=== PATIENT | male | born 1935 | race Caucasian/White ===

== ENCOUNTER 2019-08-05 15:00 | Outpatient (CLI) | payer MEDICARE, SELFPAY ==
--- NOTE | ~2019-08-05 | XR_ITS ---
EXAMINATION: XR chest 2V DATE: 08/05/2019 15:24 INDICATION: Fever and cough. TECHNIQUE: Frontal and lateral views of the chest were obtained. COMPARISON: Chest 2 views 11/05/2018, CT abdomen and pelvis 08/08/2018 FINDINGS: There is mild atelectasis versus scarring in the lower lung zones. No pleural effusion or p neumothorax. The heart size is normal. IMPRESSION: 1. Mild atelectasis versus scarring in the lower lung zones. Reviewed, dictated and finalized at location A. F MEDICAL TECHNOLOGIST
[2019-08-05 15:14] LABS: Basophils Absolute Auto 0.02 K/mm3 (0.00-0.10); Basophils Percent Auto 0.3 % (0.0-1.0); Eosinophils Absolute Auto 0.11 K/mm3 (0.02-0.50); Eosinophils Percent Auto 1.5 % (1.0-6.0); Hematocrit 39.6 % (37.0-46.0); Hemoglobin 13.6 g/dL (12.4-15.3); Immature Granulocyte Absolute 0.03 K/mm3 (0.00-0.00); Immature Granulocyte Percent A 0.4 % (0.0-0.0); Immature Platelet Fraction Pct 0.8 % (1.0-7.0); Lymphocytes Absolute Auto 1.32 K/mm3 (1.10-4.50); Lymphocytes Percent Auto 18.3 % (18.0-42.0); Mean Corpuscular HGB Conc 34.3 g/dL (32.0-36.0); Mean Corpuscular Hemoglobin 32.6 pg (27.0-31.0); Mean Platelet Volume 9.2 fl (8.7-11.0); Monocytes Absolute Auto 0.74 K/mm3 (0.10-0.90); Monocytes Percent Auto 10.2 % (2.0-11.0); Neutrophils Percent Auto 69.3 % (50.0-70.0); Platelet Count Result 162 K/mm3 (150-420); Red Blood Count 4.17 M/mm3 (4.70-6.10); Red Cell Distribution Width 13.8 % (11.6-14.4); White Blood Count 7.2 K/mm3 (4.8-10.8)
[2019-08-05 15:27] LABS: Anion Gap 11.7 mmol/L (7-16); Blood Urea Nitrogen 27 mg/dL (7-18); Calcium 8.9 mg/dL (8.5-10.1); Carbon Dioxide 30 mmol/L (21-32); Chloride 106 mmol/L (98-108); Estimated Glomerular Filt Rate 27; Glucose 93 mg/dL (70-99); Osmolality Calculated 303 mOsm/kg (285-295); Potassium 3.7 mmol/L (3.5-5.1); Sodium 144 mmol/L (136-145)
[2019-08-05 15:31] LABS: Influenza Control Valid (Valid)
== END 2019-08-05 15:01 | disposition home or self-care (01) ==
LOC: CHSLAB 15:03
PROVIDERS: PCP Internal Medicine; Visit Provider Internal Medicine
DX: R50.9 Fever, unspecified (principal); R05 Cough
CPT/HCPCS: 71046; 80048; 85025; 85055; 87804

== ENCOUNTER 2019-08-06 13:10 | Outpatient (CLI) | payer MEDICARE, SELFPAY ==
--- NOTE | ~2019-08-06 | US_ITS ---
EXAMINATION: US soft tissue head and neck DATE: 08/06/2019 14:19 INDICATION: Chronic lump at the lateral left forehead TECHNIQUE: Multiple grayscale and Doppler ultrasound images of the region of concern at the lateral l eft forehead were obtained. COMPARISON: None FINDINGS: There is a heterogeneous lenticular mass in the scalp at the region of concern measuring 2.6 x 2.3 x 0.8 cm. The mass appears isoechoic and with similar echogenicity to the surrounding subcutaneous tiss ues with no internal vascular flow on color Doppler most suggestive of a lipoma. There is an underlyi ng 4.9 x 1.8 x 3.3 cm anechoic region and could not exclude a larger cystic lesion however the echoge nicity along the deep margin of the anechoic region demonstrates a contracted appearance which appear s to represent a reflection of the tissues of the scalp suggesting this represents artifact resulting from the skull. IMPRESSION: 1. Nonspecific 2.6 x 2.3 x 0.8 cm mass at the region of concern with appearance suggestive of a lipom a. 2. Likely acoustic reflection from the skull resulting in artifactual appearance of a large underlyin g cystic lesion. If clinically indicated CT could be obtained for confirmation both of the suspected artifact as well as of the suspected fatty composition of the scalp mass. Reviewed, dictated and finalized at location A. LER HAND IMPRESSION: 1. Nonspecific 2.6 x 2.3 x 0.8 cm mass at the region of concern with appearance suggestive of a lipoma. 2. Likely acoustic reflection from the skull resulting in artifactual appearanc e of a large underlying cystic lesion. If clinically indicated CT could be obta ined for confirmation both of the suspected artifact as well as of the suspecte d fatty composition of the scalp mass.
== END 2019-08-06 13:11 | disposition home or self-care (01) ==
LOC: CHSIMG 13:11
PROVIDERS: PCP Internal Medicine; Visit Provider Internal Medicine
DX: L72.9 Follicular cyst of the skin and subcutaneous tissue, unspecified (principal)
CPT/HCPCS: 76536

== ENCOUNTER 2019-08-19 08:08 | Outpatient (CLI) | payer MEDICARE, SELFPAY ==
[2019-08-19 08:22] LABS: Add Urine Microscopic? NO; Appearance Urine Clear (Clear); Bilirubin Urine Negative (Negative); Blood Urine Negative (Negative); Color Urine Yellow (Yellow); Glucose Urine UA Negative (Negative); Ketones Urine Negative (Negative); Leukocyte Esterase Ur Negative (Negative); Nitrate Urine Negative (Negative); Protein Urine Negative (Negative); Specific Grav Ur 1.015 (1.010-1.020); Urobilinogen Urine 0.2 mg/dL (0.2-1.0)
[2019-08-19 10:18] LABS: Blood Urea Nitrogen 26 mg/dL (7-18); Calcium 9.3 mg/dL (8.5-10.1); Carbon Dioxide 30 mmol/L (21-32); Chloride 106 mmol/L (98-108); Estimated Glomerular Filt Rate 27; Glucose 86 mg/dL (70-99); Osmolality Calculated 301 mOsm/kg (285-295); Sodium 144 mmol/L (136-145)
== END 2019-08-19 08:09 | disposition home or self-care (01) ==
LOC: CHSLAB 08:12
PROVIDERS: PCP Internal Medicine; Visit Provider Internal Medicine
DX: R79.89 Other specified abnormal findings of blood chemistry (principal)
CPT/HCPCS: 36415; 80048; 81003

== ENCOUNTER 2019-09-06 10:57 | Outpatient (CLI) | payer MEDICARE, SELFPAY ==
--- NOTE | ~2019-09-06 | CT_ITS ---
EXAMINATION: CT abdomen pelvis wo con DATE: 09/06/2019 12:26 INDICATION: Crohn's disease presenting with acute abdominal pain. Possible small bowel obstruction. TECHNIQUE: Computed tomography (CT) of the abdomen and pelvis was performed without intravenous contr ast. Automated exposure control and iterative reconstruction technique were employed. The dose-length product was 520.39 mGy-cm. COMPARISON: 08/08/2018 , 04/18/2016 and 03/30/2013 FINDINGS: Discoid atelectasis/scarring at the bilateral lower lung zones. Cardiomegaly. No pericardial or pleur al effusion. Very small sliding-type hiatal hernia. Liver, gallbladder, pancreas and bilateral adrena l glands are normal. Splenic calcification consistent with old granulomatous disease. 1 mm as well as 2-3 mm nonobstructing stones in the right kidney 2 mm nonobstructing stone at the lower pole of the left kidney. No significant change in bilateral renal cysts largest and more numerous on the left filemon suring up to 5.5 cm. There are a couple diverticula along the descending and sigmoid colon without ad jacent inflammatory change to suggest diverticulitis. Postoperative change of prior cecal and likely distal ileal resection with patent ileocolic anastomosis. No evident bowel wall thickening or obstruc tion. Small fat-containing right inguinal hernia. Bladder is normal. Prostatectomy with surgical clip s in the pelvis consistent with associated lymph node dissection. No free intraperitoneal gas or flui d. No pathologically enlarged abdominal or pelvic lymphadenopathy. Moderate lower lumbar spondylosis with mild spondylosis of the more cephalad lumbar and lower thoracic spine. No interval change since 2012 in multiple small sclerotic bone lesions in the pelvis, lower lumbar spine and proximal left fem ur most likely either bone islands or chronic stable/treated metastatic disease. IMPRESSION: 1. No bowel obstruction or acute intra-abdominal/pelvic process. 2. Very small sliding-type hiatal hernia. 3. Bilateral nonobstructing nephrolithiasis. 4. No interval change since 2012 in multiple small sclerotic bone lesions which could represent bone islands, stable treated metastatic prostate cancer or combination thereof. Reviewed, dictated and finalized at location A. DYER IMPRESSION: 1. No bowel obstruction or acute intra-abdominal/pelvic process. 2. Very small sliding-type hiatal hernia. 3. Bilateral nonobstructing nephrolithiasis. 4. No interval change since 2012 in multiple small sclerotic bone lesions which could represent bone islands, stable treated metastatic prostate cancer or com bination thereof.
[2019-09-06 11:11] LABS: Basophils Absolute Auto 0.03 K/mm3 (0.00-0.10); Basophils Percent Auto 0.5 % (0.0-1.0); Eosinophils Absolute Auto 0.13 K/mm3 (0.02-0.50); Eosinophils Percent Auto 2.2 % (1.0-6.0); Hematocrit 40.6 % (37.0-46.0); Immature Granulocyte Absolute 0.04 K/mm3 (0.00-0.00); Immature Granulocyte Percent A 0.7 % (0.0-0.0); Lymphocytes Absolute Auto 1.23 K/mm3 (1.10-4.50); Lymphocytes Percent Auto 20.7 % (18.0-42.0); Mean Corpuscular HGB Conc 34.5 g/dL (32.0-36.0); Mean Corpuscular Hemoglobin 32.5 pg (27.0-31.0); Mean Corpuscular Volume 94.2 fL (78.0-102.0); Mean Platelet Volume 8.6 fl (8.7-11.0); Monocytes Absolute Auto 0.61 K/mm3 (0.10-0.90); Monocytes Percent Auto 10.3 % (2.0-11.0); Neutrophils Absolute Auto 3.9 K/mm3 (1.7-7.2); Neutrophils Percent Auto 65.6 % (50.0-70.0); Platelet Count Result 152 K/mm3 (150-420); Red Blood Count 4.31 M/mm3 (4.70-6.10)
[2019-09-06 11:26] LABS: Alanine Aminotransferase 36 U/L (16-63); Albumin Level 3.6 g/dL (3.4-5.0); Alkaline Phosphatase 47 U/L (46-116); Anion Gap 6.8 mmol/L (7-16); Aspartate Amino Transferase 26 U/L (15-37); Bilirubin,Total 0.5 mg/dL (0.00-1.00); Blood Urea Nitrogen 34 mg/dL (7-18); Calcium 9.2 mg/dL (8.5-10.1); Carbon Dioxide 32 mmol/L (21-32); Chloride 105 mmol/L (98-108); Estimated Glomerular Filt Rate 27; Glucose 91 mg/dL (70-99); Osmolality Calculated 297 mOsm/kg (285-295); Potassium 3.8 mmol/L (3.5-5.1); Sodium 140 mmol/L (136-145); Total Protein 6.7 g/dL (6.4-8.2)
== END 2019-09-06 10:58 | disposition home or self-care (01) ==
LOC: CHSLAB 11:01
PROVIDERS: PCP Internal Medicine; Visit Provider Internal Medicine
DX: R10.0 Acute abdomen (principal)
CPT/HCPCS: 36415; 74176; 80053; 85025

== ENCOUNTER 2019-09-18 10:12 | Outpatient (CLI) | payer MEDICARE, SELFPAY ==
[2019-09-18 11:07] LABS: Anion Gap 14.8 mmol/L (7-16); Blood Urea Nitrogen 29 mg/dL (7-18); Calcium 9.4 mg/dL (8.5-10.1); Carbon Dioxide 29 mmol/L (21-32); Chloride 103 mmol/L (98-108); Estimated Glomerular Filt Rate 25; Glucose 135 mg/dL (70-99); Osmolality Calculated 303 mOsm/kg (285-295); Potassium 3.8 mmol/L (3.5-5.1); Sodium 143 mmol/L (136-145)
== END 2019-09-18 10:13 | disposition home or self-care (01) ==
LOC: CHSLAB 10:14
PROVIDERS: PCP Internal Medicine; Visit Provider Internal Medicine
DX: R79.89 Other specified abnormal findings of blood chemistry (principal)
CPT/HCPCS: 36415; 80048

== ENCOUNTER 2019-12-09 07:41 | Outpatient (CLI) | payer MEDICARE, SELFPAY ==
--- NOTE | ~2019-12-09 | US_ITS ---
EXAMINATION: US renal BI DATE: 12/09/2019 08:30 INDICATION: Abnormal renal function TECHNIQUE: Multiple ultrasound grayscale images of the kidneys were obtained. COMPARISON: CT dated 09/06/2019 FINDINGS: The right kidney measures 10.1 x 4.1 x 4.6 cm. The left kidney measures 11.9 x 5.8 x 5.6 cm. Bilatera l increased renal cortical echogenicity consistent with medical renal disease. 7 mm exophytic cyst at the right kidney and several larger cysts at the left kidney measuring up to 5.3 cm. 3 mm echogenic and shadowing stone at the lower pole of the right kidney. There is no hydronephrosis in either kidne y. Right side there is mild diffuse bladder wall thickening which is accentuated by incomplete diste ntion and which may be related to chronic outlet obstruction with postoperative change of prior prost atectomy evident on prior CT. IMPRESSION: 1. Bilateral diffuse increased renal cortical and chest CT consistent with medical renal disease. 2. Nonobstructing 3 mm right renal stone. No hydronephrosis. Reviewed, dictated and finalized at location A. IMPRESSION: 1. Bilateral diffuse increased renal cortical and chest CT consistent with med ical renal disease. 2. Nonobstructing 3 mm right renal stone. No hydronephrosis.
== END 2019-12-09 07:42 | disposition home or self-care (01) ==
PROVIDERS: PCP Internal Medicine; Visit Provider Internal Medicine Nephrology
DX: R94.4 Abnormal results of kidney function studies (principal)
CPT/HCPCS: 76775

== ENCOUNTER 2019-12-17 08:49 | Outpatient (CLI) | payer MEDICARE, SELFPAY ==
[2019-12-17 09:03] VITALS: BP 136/70; PULSE 72; RESP 14; TEMP 36.6; O2SAT 98
[2019-12-17] MEDS: DENOSUMAB 60 MG/ML SYRINGE SUB-Q (09:03)
--- NOTE | 2019-12-17 09:05 | PC.NURSE ---
Patient here for Prolia injection. Patient states, This is my third one of these. Be getting it twice a year. Reviewed with patient about medication side effects etc with verbal understanding. Tolerated injection well. Safe exit of hospital.
== END 2019-12-17 08:50 | disposition home or self-care (01) ==
LOC: CHSTREATRM 08:50
PROVIDERS: PCP Internal Medicine; Visit Provider Internal Medicine
DX: M81.8 Other osteoporosis without current pathological fracture (principal)
CPT/HCPCS: 96372; J0897

== ENCOUNTER 2019-12-23 07:14 | Outpatient (CLI) | payer MEDICARE, SELFPAY ==
[2019-12-23 07:28] LABS: Basophils Absolute Auto 0.02 K/mm3 (0.00-0.10); Basophils Percent Auto 0.4 % (0.0-1.0); Eosinophils Absolute Auto 0.15 K/mm3 (0.02-0.50); Eosinophils Percent Auto 2.8 % (1.0-6.0); Hematocrit 40.1 % (37.0-46.0); Hemoglobin 13.8 g/dL (12.4-15.3); Immature Granulocyte Absolute 0.03 K/mm3 (0.00-0.00); Immature Granulocyte Percent A 0.6 % (0.0-0.0); Lymphocytes Absolute Auto 1.58 K/mm3 (1.10-4.50); Mean Corpuscular HGB Conc 34.4 g/dL (32.0-36.0); Mean Corpuscular Volume 95.9 fL (78.0-102.0); Mean Platelet Volume 8.4 fl (8.7-11.0); Monocytes Absolute Auto 0.57 K/mm3 (0.10-0.90); Monocytes Percent Auto 10.8 % (2.0-11.0); Neutrophils Absolute Auto 2.9 K/mm3 (1.7-7.2); Neutrophils Percent Auto 55.4 % (50.0-70.0); Platelet Count Result 147 K/mm3 (150-420); Red Blood Count 4.18 M/mm3 (4.70-6.10); Red Cell Distribution Width 13.6 % (11.6-14.4); White Blood Count 5.3 K/mm3 (4.8-10.8)
[2019-12-23 07:33] LABS: Add Urine Microscopic? NO; Appearance Urine Clear (Clear); Bilirubin Urine Negative (Negative); Blood Urine Negative (Negative); Color Urine Yellow (Yellow); Glucose Urine UA Negative (Negative); Ketones Urine Negative (Negative); Leukocyte Esterase Ur Negative (Negative); Nitrate Urine Negative (Negative); Protein Urine Negative (Negative); Urobilinogen Urine 0.2 mg/dL (0.2-1.0)
[2019-12-23 08:55] LABS: Alanine Aminotransferase 33 U/L (16-63); Albumin Level 3.6 g/dL (3.4-5.0); Alkaline Phosphatase 42 U/L (46-116); Aspartate Amino Transferase 22 U/L (15-37); Bilirubin,Total 0.5 mg/dL (0.00-1.00); Blood Urea Nitrogen 29 mg/dL (7-18); Calcium 8.8 mg/dL (8.5-10.1); Carbon Dioxide 34 mmol/L (21-32); Chloride 104 mmol/L (98-108); Cholesterol 175 mg/dL (0-200); Creatine Kinase 106 U/L (39-308); Estimated Glomerular Filt Rate 25; Ferritin 82 ng/mL (26-388); Glucose 87 mg/dL (70-99); HDL Direct 62 mg/dL (40-60); Iron 114 ug/dL (65-175); LDL Cholesterol Calculated 96 mg/dL (<130); Osmolality Calculated 298 mOsm/kg (285-295); Percent Iron Saturation 37 % (12-57); Sodium 142 mmol/L (136-145); Total Protein 6.1 g/dL (6.4-8.2); Triglycerides 87 mg/dL (0-150); Uric Acid 6.5 mg/dL (3.5-7.2)
[2019-12-25 12:16] LABS: Parathyroid Intact 42 pg/mL (14-64)
[2019-12-28 11:49] LABS: Vitamin D 25 Hydroxy 35 ng/mL (30-100)
== END 2019-12-23 07:15 | disposition home or self-care (01) ==
PROVIDERS: PCP Internal Medicine; Visit Provider Internal Medicine
DX: D50.0 Iron deficiency anemia secondary to blood loss (chronic) (principal); I12.9 Hypertensive chronic kidney disease with stage 1 through stage 4 chronic kidney disease, or unspecified chronic kidney disease; E78.2 Mixed hyperlipidemia; E79.0 Hyperuricemia without signs of inflammatory arthritis and tophaceous disease; M81.8 Other osteoporosis without current pathological fracture; N18.3 Chronic kidney disease, stage 3 (moderate)
CPT/HCPCS: 36415; 80053; 80061; 81003; 82306; 82550; 82728; 83540; 83550; 83970; 84550; 85025

== ENCOUNTER 2020-01-27 11:43 | Outpatient (CLI) | payer MEDICARE, SELFPAY ==
[2020-01-27 12:00] LABS: Basophils Absolute Auto 0.01 K/mm3 (0.00-0.10); Basophils Percent Auto 0.2 % (0.0-1.0); Eosinophils Absolute Auto 0.18 K/mm3 (0.02-0.50); Eosinophils Percent Auto 3.3 % (1.0-6.0); Hematocrit 37.3 % (37.0-46.0); Hemoglobin 13.1 g/dL (12.4-15.3); Immature Granulocyte Absolute 0.03 K/mm3 (0.00-0.00); Immature Granulocyte Percent A 0.5 % (0.0-0.0); Lymphocytes Absolute Auto 1.24 K/mm3 (1.10-4.50); Lymphocytes Percent Auto 22.5 % (18.0-42.0); Mean Corpuscular HGB Conc 35.1 g/dL (32.0-36.0); Mean Corpuscular Hemoglobin 33.9 pg (27.0-31.0); Mean Corpuscular Volume 96.6 fL (78.0-102.0); Mean Platelet Volume 8.8 fl (8.7-11.0); Monocytes Absolute Auto 0.58 K/mm3 (0.10-0.90); Monocytes Percent Auto 10.5 % (2.0-11.0); Neutrophils Absolute Auto 3.5 K/mm3 (1.7-7.2); Platelet Count Result 141 K/mm3 (150-420); Red Blood Count 3.86 M/mm3 (4.70-6.10); Red Cell Distribution Width 14.4 % (11.6-14.4); White Blood Count 5.5 K/mm3 (4.8-10.8)
[2020-01-27 12:03] LABS: Add Urine Microscopic? NO; Appearance Urine Clear (Clear); Bilirubin Urine Negative (Negative); Blood Urine Negative (Negative); Color Urine Yellow (Yellow); Glucose Urine UA Negative (Negative); Ketones Urine Negative (Negative); Leukocyte Esterase Ur Negative (Negative); Nitrate Urine Negative (Negative); Protein Urine Negative (Negative); Specific Grav Ur <= 1.005 (1.010-1.020); Urobilinogen Urine 0.2 mg/dL (0.2-1.0); pH Urine 6.5 (5.0-8.0)
[2020-01-27 12:30] LABS: Alanine Aminotransferase 33 U/L (16-63); Albumin Level 3.5 g/dL (3.4-5.0); Alkaline Phosphatase 50 U/L (46-116); Anion Gap 8.1 mmol/L (7-16); Aspartate Amino Transferase 25 U/L (15-37); Bilirubin,Total 0.6 mg/dL (0.00-1.00); Blood Urea Nitrogen 28 mg/dL (7-18); Calcium 8.6 mg/dL (8.5-10.1); Carbon Dioxide 31 mmol/L (21-32); Chloride 103 mmol/L (98-108); Estimated Glomerular Filt Rate 20; Glucose 99 mg/dL (70-99); Osmolality Calculated 291 mOsm/kg (285-295); Potassium 4.1 mmol/L (3.5-5.1); Sodium 138 mmol/L (136-145); Total Protein 6.1 g/dL (6.4-8.2)
== END 2020-01-27 11:44 | disposition home or self-care (01) ==
LOC: CHSLAB 11:45
PROVIDERS: PCP Internal Medicine; Visit Provider Internal Medicine
DX: I10 Essential (primary) hypertension (principal); I63.9 Cerebral infarction, unspecified
CPT/HCPCS: 36415; 80053; 81003; 85025

== ENCOUNTER 2020-01-28 06:58 | Outpatient (CLI) | payer MEDICARE, SELFPAY ==
--- NOTE | ~2020-01-28 | US_ITS ---
EXAMINATION: US carotid duplex BI DATE: 01/28/2020 07:59 INDICATION: Speech deficit. Stroke. TECHNIQUE: Grayscale, color Doppler, and pulsed Doppler images of the cervical carotid arteries were obtained. The degree of vessel stenosis is placed in one of the following categories: normal, <50%, 5 0-69%, >=70% but less than near-occlusion, near-occlusion, or total occlusion. Note that percent sten osis relative to normal distal artery lumen diameter is indirectly measured from velocity measurement s as described by Mikel, et al. Radiology 2003; 229:340-346. COMPARISON: None. FINDINGS: RIGHT: The right common carotid artery (CCA) peak systolic velocity (PSV) is 61 cm/s. The right internal car otid artery (ICA) PSV is 65 cm/s. The right ICA end-diastolic velocity (EDV) is 23 cm/s. The right IC A/CCA PSV ratio is 1.1. Grayscale and color Doppler images yield an estimate of <50% diameter reducti on from plaque in the ICA. There is antegrade flow in the right vertebral artery. LEFT: The left CCA PSV is 58 cm/s. The left ICA PSV is 57 cm/s. The left ICA EDV is 20 cm/s. The left ICA/C CA PSV ratio is 1.0. Grayscale and color Doppler images yield an estimate of <50% diameter reduction from plaque in the ICA. There is antegrade flow in the left vertebral artery. IMPRESSION: 1. <50% stenosis in the right internal carotid artery. 2. <50% stenosis in the left internal carotid artery. Reviewed, dictated and finalized at location A.
--- NOTE | ~2020-01-28 | MR_ITS ---
EXAMINATION: MR brain IAC wo con EXAM DATE: 01/28/2020 08:17 INDICATION: Stroke. Episode of speech impairment last night. TECHNIQUE: Magnetic resonance imaging (MRI) of the brain/brain stem obtained without contrast. Sagitt al T1, axial diffusion, gradient echo (T2*), T1, T2, FLAIR sequences obtained. FINDINGS: There are no areas of restricted diffusion to suggest acute infarction. There is no acute hemorrhage seen on the T2*, a hemosiderin sensitive sequence. No intraparenchymal brain mass lesion. There is moderate periventricular and subcortical T2/FLAIR signal hyperintensity, nonspecific but pr obably related to small vessel ischemic disease (microangiopathy). There is mild prominence of the sulci and ventricles related to cerebral atrophy. Dilated perivascular spaces. There are no extra-ax ial collections. Flow voids are seen in the cerebral arteries on the T2-weighted sequences consisten t with their expected patency. Patient has had bilateral ocular lens surgery. Soft tissue is unrema rkable. There is left mastoid effusion. IMPRESSION: 1. No acute intracranial findings. 2. Chronic age related findings. 3. Left mastoid effusion. Reviewed, dictated and finalized at location A.
== END 2020-01-28 06:59 | disposition home or self-care (01) ==
PROVIDERS: PCP Internal Medicine; Visit Provider Internal Medicine
DX: I10 Essential (primary) hypertension (principal); I63.9 Cerebral infarction, unspecified
CPT/HCPCS: 70551; 93880

== ENCOUNTER 2020-02-08 00:57 | Outpatient (CLI) | payer MEDICARE, BC, SELFPAY ==
[2020-02-08 18:11] LABS: SARS-CoV-2 RNA PCR Negative
== END 2020-02-08 00:58 | disposition home or self-care (01) ==
LOC: ANHCOVIDDT 00:58
PROVIDERS: PCP Internal Medicine; Visit Provider Surgery
DX: Z01.812 Encounter for preprocedural laboratory examination (principal); Z11.59 Encounter for screening for other viral diseases
CPT/HCPCS: 87635; C9803; U0003

== ENCOUNTER 2020-02-11 01:36 | Day surgery (SDC) | payer MEDICARE, SELFPAY ==
[2020-02-04 10:40] VITALS: BMI 22.6
[2020-02-11 07:42] VITALS: BP 184/88; PULSE 63; RESP 18; TEMP 36.8; O2SAT 98
[2020-02-11] MEDS: LACTATED RINGERS 1,000 ML 150 ML IV CONT (07:54)
--- NOTE | 2020-02-11 08:08 | P.PNAN_ITS ---
Anes - Initial Pre Proc Eval Procedure: Operation Date: 02/11/20 09:00 Proposed Procedures p Screening Colonoscopy - Hawk Dunn DO Date/Time: 02/11/20 08:08 Surgeon: Hawk Dunn DO Pre Op Diagnosis: hx of polyps Patient Data Age: 84 Gender: M Height: 6 ft 1 in Weight: 76.6 kg Last Vital Signs Temp 98.2 F 02/11/20 07:42 Pulse 63 02/11/20 07:42 Resp 18 02/11/20 07:42 BP 184/88 H 02/11/20 07:42 Pulse Ox 98 02/11/20 07:42 Allergies Allergy/AdvReac Type Severity Reaction Status Date / Time No Known Allergies Allergy Verified 02/04/20 10:46 Home Medications Medication Instructions Recorded Confirmed Type albuterol sulfate 1 inh INHALATION QID 02/04/20 02/04/20 History budesonide 3 mg PO BID 02/04/20 02/04/20 History budesonide-formoterol [Symbicort] 2 puff INHALATION Q12H 02/04/20 02/04/20 History calcitriol 0.5 mcg PO DAILY 02/04/20 02/04/20 History carvedilol 12.5 mg PO BID 02/04/20 02/11/20 History fluticasone propionate [Flonase 1 spray INTRANASAL BID 02/04/20 02/04/20 History Allergy Relief] montelukast 10 mg PO DAILY 02/04/20 02/04/20 History nortriptyline 10 mg PO DAILY PRN 02/04/20 02/04/20 History omeprazole 20 mg PO BID 02/04/20 02/04/20 History Patient hx anesthesia problems: none Family hx anesthesia problems: none [facility] Past Medical History Medical History (Updated 02/11/20 @ 08:06 by Warner Medina MD) Asthma GERD (gastroesophageal reflux disease) Hyperlipidemia Hypertension Social History Social History Smoking status: Never smoker Gender identity (if verbalized by the patient): Male Anes - Eval Final PreProcedure Day of Procedure 02/11/20 08:08 Patient weight: normal Heart: regular rate and rhythm Lungs: clear to auscultation Airway: Mallampati scale class III Neurological: alert and oriented Last oral intake: >/= 8 hours ASA classification: III Emergent: no Anesthetic plan: proceed Anesthesia type and monitoring: general GIVS and standard monitoring Informed Consent: The patient's anesthetic plan and its attendant risks and benefits were discussed with the patient/family/POA. Questions were solicited and answers provided to the satisfaction of the patient/family/POA.
--- NOTE | 2020-02-11 08:21 | PM.IMHP ---
H&P: HPI History of Present Illness Date/Time: 02/11/20 08:21 Chief complaint: hx of polyps Narrative: Miguel A Richter is a 84 year old male who presents for colonoscopy. Last 5 years ago. No hematochezia or melena. No fam hx colon cancer. Review of Systems Review of Systems: All systems reviewed & are unremarkable except as noted in HPI and below Constitutional: Constitutional: Denies chills, Denies fever(s), Denies headache(s) and Denies weight loss Eyes: Eyes: Denies change in vision ENT: Denies dizziness, Denies headache(s), Denies neck mass and Denies throat swelling Cardiovascular: Cardiovascular: Denies chest pain, Denies lightheadedness and Denies dyspnea Respiratory: Respiratory: Denies cough, Denies dyspnea and Denies wheezing Gastrointestinal: Gastrointestinal: Denies abdominal pain, Denies change in bowel habits, Denies nausea and Denies vomiting Genitourinary: Genitourinary: Denies hematuria and Denies dysuria Musculoskeletal: Musculoskeletal: Reports as per HPI Integumentary/Breasts: Skin/Breast: Reports as per HPI Neurologic: Denies dizziness and Denies headache(s) Allergic/Immunologic: Allergic/Immunologic: Denies throat swelling and Denies wheezing PMF Past Medical History Medical History Asthma GERD (gastroesophageal reflux disease) Hyperlipidemia Hypertension Social History Social History Smoking status: Never smoker Gender identity (if verbalized by the patient): Male Meds Home Medications and Allergies Home Medications Medication Instructions Recorded Confirmed Type albuterol sulfate 1 inh INHALATION QID 02/04/20 02/04/20 History budesonide 3 mg PO BID 02/04/20 02/04/20 History budesonide-formoterol [Symbicort] 2 puff INHALATION Q12H 02/04/20 02/04/20 History calcitriol 0.5 mcg PO DAILY 02/04/20 02/04/20 History carvedilol 12.5 mg PO BID 02/04/20 02/11/20 History fluticasone propionate [Flonase 1 spray INTRANASAL BID 02/04/20 02/04/20 History Allergy Relief] montelukast 10 mg PO DAILY 02/04/20 02/04/20 History nortriptyline 10 mg PO DAILY PRN 02/04/20 02/04/20 History omeprazole 20 mg PO BID 02/04/20 02/04/20 History Allergies Allergy/AdvReac Type Severity Reaction Status Date / Time No Known Allergies Allergy Verified 02/04/20 10:46 Vital Signs Vital Signs - 24 hr 02/11/20 07:42 Temperature 36.8 C Pulse Rate 63 Respiratory Rate 18 Blood Pressure 184/88 H Pulse Oximetry 98 Exam Const: General: no acute distress and alert Orientation/consciousness: patient oriented x3 HENMT: Head: normocephalic and atraumatic Ears: hearing grossly normal bilaterally General nose exam: Normal nares present Mouth: Yes Normal oral and palatal mucosa present Eyes: Periorbital: periorbital findings normal Sclera: sclerae normal EOM: EOMs intact bilaterally Neck: Neck: normal visual inspection, no lymphadenopathy and trachea midline Chest: Chest palpation & inspection: normal inspection of the chest Resp: Effort & Inspection: normal respiratory effort Auscultation: clear to auscultation bilaterally Cardio: Jugular venous distension: no JVD Rate: regular rate Rhythm: regular rhythm Heart sounds: S1 normal heart sound present and S2 normal heart sound present Peripheral pulses: Peripheral pulses 2+ throughout GI: Inspection: normal to inspection GI Palp: Yes Soft to palpation, No Tenderness to palpation present (GI), No Guarding due to palpation present (GI) and No Rebound tenderness present Percussion: Yes normal to percussion Auscultation: normal bowel sounds : General: Yes no CVA tenderness Back/Spine/Pelvis: Back: no CVA tenderness Neuro: General: patient oriented x3, no focal motor deficits and CN's II-XI intact bilaterally Cognition (Neuro): normal cognition Speech: normal speech Motor exam (neuro): 5/5 motor strength present th
[2020-02-11 08:38] VITALS: BP 113/79; PULSE 60; RESP 18; O2SAT 95
[2020-02-11 08:48] VITALS: BP 124/82; PULSE 62; RESP 20; O2SAT 96
[2020-02-11 08:58] VITALS: BP 146/72; PULSE 56; RESP 20; O2SAT 98
== END 2020-02-11 09:19 | disposition home or self-care (01) ==
PROVIDERS: PCP Internal Medicine; Visit Provider Surgery
PROC: 0DJD8ZZ Inspection of Lower Intestinal Tract, Via Natural or Artificial Opening Endoscopic (ICD-10-PCS; CPT 45378; principal; 2020-02-11 09:00)
DX: Z12.11 Encounter for screening for malignant neoplasm of colon (principal); K50.90 Crohn's disease, unspecified, without complications; Z86.010 Personal history of colon polyps; I10 Essential (primary) hypertension; E78.5 Hyperlipidemia, unspecified; J45.909 Unspecified asthma, uncomplicated; K21.9 Gastro-esophageal reflux disease without esophagitis
CPT/HCPCS: G0105; J2704; J7120

== ENCOUNTER 2020-03-07 10:36 | Outpatient (CLI) | payer MEDICARE, SELFPAY ==
--- NOTE | ~2020-03-07 | MR_ITS ---
EXAMINATION: MR lumbar spine wo con EXAM DATE: 03/07/2020 11:20 INDICATION: Chronic low back pain down into right hip and leg, with 2 weeks of numbness and tingling in the right leg. TECHNIQUE: Multi-sequential, multiplanar MR images of the lumbar spine were obtained without contrast . Sagittal T1, T2, T2 fat saturation images. Axial T2 weighted images. There is no prior study for comparison. Correlation was made with CT abdomen pelvis 09/06/2019. FINDINGS: Mild compression fracture at the superior endplate of T11, chronic. The vertebral body heig hts are otherwise well-maintained. There is moderate disc disease at L5-S1, mild at the other lumbar levels. There is 3-4 mm anterolisthesis L4 on L5. The vertebral bodies are otherwise aligned. The con us medullaris terminates at the L1/2 level and has normal signal intensity and morphology. Multiple l eft renal lesions, imaged portions consistent with cysts. Heterogeneous bone marrow with scattered small regions consistent with hemangiomata, and others which are not. Correlating with prior CT scan, patient does have known scattered sclerotic foci, with diff erential diagnosis port as bone islands or treated metastatic prostate cancer. Level by level evaluation: T12-L1: Disc does not extend beyond the endplate margin. Facet arthropathy: None. Neural foraminal stenosis: No stenosis. Central canal stenosis: No stenosis. L1-L2: Disc does not extend beyond the endplate margin. Facet arthropathy: None. Neural foraminal stenosis: No stenosis. Central canal stenosis: No stenosis. L2-L3: There is a mild diffuse disc bulge. Facet arthropathy: Mild. Neural foraminal stenosis: Minimal bilateral. Central canal stenosis: No stenosis. L3-L4: There is a mild diffuse disc bulge. Facet arthropathy: Mild. Neural foraminal stenosis: Mild bilateral. Central canal stenosis: No stenosis. L4-L5: There is a mild to moderate diffuse disc bulge. Facet arthropathy: Moderate to severe . Ligamentum flavum enlargement. Neural foraminal stenosis: Mild to moderate right, mild left. Central canal stenosis: Mild to moderate. L5-S1: There is a mild to moderate diffuse disc bulge. Facet arthropathy: Mild. Neural foraminal stenosis: Moderate left, mild right. Central canal stenosis: No stenosis. IMPRESSION: 1. L4-5 grade 1 anterolisthesis, moderate to severe bilateral facet arthropathy. 2. L5-S1 moderate disc disease and left neural foraminal stenosis. 3. Heterogeneous bone marrow with scattered focal regions likely combination of Hemangiomata and scl erotic foci previously described. Reviewed, dictated and finalized at location G. IMPRESSION: 1. L4-5 grade 1 anterolisthesis, moderate to severe bilateral facet arthropath y. 2. L5-S1 moderate disc disease and left neural foraminal stenosis. 3. Heterogeneous bone marrow with scattered focal regions likely combination o f Hemangiomata and sclerotic foci previously described.
== END 2020-03-07 10:37 | disposition home or self-care (01) ==
LOC: CHSIMG 10:38
PROVIDERS: PCP Internal Medicine; Visit Provider Internal Medicine
DX: M54.5 Low back pain (principal)
CPT/HCPCS: 72148

== ENCOUNTER 2020-04-23 12:27 | Outpatient (CLI) | payer MEDICARE, SELFPAY ==
--- NOTE | 2020-04-23 12:30 | ECG_ITS ---
Measurements Intervals [place] Rate: 54 P: 60 RI: 186 QRS: 13 QRSD: 90 T: 36 QT: 439 QTc: 417 Interpretive Statements SINUS BRADYCARDIA WITH SINUS ARRHYTHMIA EARLY PRECORDIAL R/S TRANSITION VOLTAGE CRITERIA FOR LVH BORDERLINE ECG Electronically Signed On 04-23-2020 13:03:45 CDT by Sukhjinder Solis D.O.
[2020-04-23 13:28] LABS: Anion Gap 3 mmol/L (8-16); Blood Urea Nitrogen 31 mg/dL (9-20); Carbon Dioxide 33 mmol/L (22-30); Chloride 101 mmol/L (98-107); Estimated Glomerular Filt Rate 25; Glucose 118 mg/dL (75-110); Potassium 3.9 mmol/L (3.4-5.0); Sodium 137 mmol/L (137-145)
== END 2020-04-23 12:28 | disposition home or self-care (01) ==
LOC: ANHSURGERY 12:30
PROVIDERS: Anesthesiology; PCP Internal Medicine; Visit Provider Plastic Surgery
DX: Z01.818 Encounter for other preprocedural examination (principal); I10 Essential (primary) hypertension; N28.9 Disorder of kidney and ureter, unspecified
CPT/HCPCS: 36415; 80048; 93005

== ENCOUNTER 2020-04-28 01:29 | Outpatient (CLI) | payer MEDICARE, SELFPAY ==
[2020-04-28 19:05] LABS: SARS-CoV-2 RNA PCR Negative
== END 2020-04-28 01:30 | disposition home or self-care (01) ==
LOC: ANHCOVIDDT 01:30
PROVIDERS: PCP Internal Medicine; Visit Provider Plastic Surgery
DX: Z01.812 Encounter for preprocedural laboratory examination (principal); Z20.828 Contact with and (suspected) exposure to other viral communicable diseases
CPT/HCPCS: 87635; C9803; U0003

== ENCOUNTER 2020-04-30 01:09 | Day surgery (SDC) | payer MEDICARE, SELFPAY ==
[2020-04-22 09:32] VITALS: BMI 23.3
[2020-04-30 06:20] VITALS: BP 156/109; PULSE 59; RESP 18; TEMP 36.7; O2SAT 98
--- NOTE | 2020-04-30 06:42 | WPDANESEPPF ---
Anes - Initial Pre Proc Eval Procedure: Operation Date: 04/30/20 07:30 Proposed Procedures p Excision of Basal Cell Carcinoma Tip of Nose With Frozen Section, Possible Local Tissue Transfer or Full Thickness Skin Graft - Gunnar Jacobo MD Date/Time: 04/30/20 06:42 Surgeon: Gunnar Jacobo MD Pre Op Diagnosis: Basal Cell Carcinoma Tip of Nose Patient Data Age: 84 Gender: M Height: 6 ft Weight: 78 kg Allergies Allergy/AdvReac Type Severity Reaction Status Date / Time No Known Allergies Allergy Verified 04/22/20 09:54 Home Medications Medication Instructions Recorded Confirmed Type albuterol sulfate 1 inh INHALATION BID PRN 02/04/20 04/22/20 History budesonide 6 mg PO QAM 02/04/20 04/22/20 History budesonide-formoterol [Symbicort] 2 puff INHALATION Q12H 02/04/20 04/22/20 History calcitriol 0.5 mcg PO DAILY 02/04/20 04/22/20 History fluticasone propionate [Flonase 1 spray INTRANASAL QAM 02/04/20 04/22/20 History Allergy Relief] montelukast 10 mg PO DAILY 02/04/20 04/22/20 History nortriptyline 10 mg PO HS PRN 02/04/20 04/22/20 History omeprazole 20 mg PO BID 02/04/20 04/22/20 History carvedilol 25 mg PO BID 04/22/20 04/22/20 History multivitamin [One A Day] 1 tablet PO DAILY 04/22/20 04/22/20 History oxybutynin chloride 5 mg PO DAILY 04/22/20 04/22/20 History Patient hx anesthesia problems: none Family hx anesthesia problems: none [facility] Past Medical History Medical History (Updated 02/11/20 @ 08:22 by Hawk Dunn DO) Asthma GERD (gastroesophageal reflux disease) Hyperlipidemia Hypertension Social History Social History Smoking status: Never smoker Alcohol intake: never Substance use: never Living arrangements: with family Gender identity (if verbalized by the patient): Male Spiritual care concerns: No Anes - Eval Final PreProcedure Day of Procedure 04/30/20 06:42 Patient weight: normal Heart: regular rate and rhythm Lungs: clear to auscultation Airway: Mallampati scale class II Neurological: alert and oriented Last oral intake: >/= 8 hours ASA classification: III Emergent: no Anesthetic plan: proceed Anesthesia type and monitoring: general GIVS and standard monitoring Informed Consent: The patient's anesthetic plan and its attendant risks and benefits were discussed with the patient/family/POA. Questions were solicited and answers provided to the satisfaction of the patient/family/POA.
[2020-04-30] MEDS: LACTATED RINGERS 1,000 ML 30 ML IV CONT (06:45)
--- NOTE | 2020-04-30 06:57 | WPDHPUPDATE1 ---
History and Physical Update Update Date/Time: 04/30/20 06:57 History and Physical has been reviewed, including an updated exam of the patient. There are NO changes in the patient's condition. Risks, benefits, and alternatives have been discussed and questions answered. Patient agrees to proceed with procedure.
--- NOTE | 2020-04-30 07:24 | SUR.PREOP ---
PT PREOP DBP IN 100s(mmHg). DR. VAUGHAN MADE AWARE. NNO.
[2020-04-30] MEDS: LIDO 1%/EPINEPHRINE 1:100,000 20 ML VIAL INFILTRATE (07:49)
--- NOTE | 2020-04-30 07:50 | SUR.OPER ---
specimen given to sarah in pathology at 0750 by keren green
[2020-04-30 08:27] VITALS: BP 157/94; PULSE 60; RESP 12; O2SAT 96
--- NOTE | 2020-04-30 08:42 | PM.OP ---
Procedure Note - Brief Procedure Note - Brief Date of procedure: 04/30/20 Pre-op diagnosis: Basal Cell Carcinoma Tip of Nose Post-op diagnosis: same Procedure performed: 0.8 cm excision of BCC of right nasal tip with FS and intermediate repair 2.5 cm. Anesthesia: GLMA Surgeon: Gunnar Jacobo MD [employer] Manager: Jayson Estimated blood loss (mL): 2 Drains: No Packing: No Pathology: yes Complications: No immediate complications Condition: stable Disposition: same day
--- NOTE | 2020-04-30 08:45 | P.OP_ITS ---
Procedure Note - Detailed Date of procedure: 04/30/20 Pre-op diagnosis: Basal Cell Carcinoma Tip of Nose Post-op diagnosis: same Procedure performed: 0.8 cm excision of basal cell carcinoma of the right nasal tip of nose, frozen section, intermediate repair 2.5 cm. Description of procedure: The appropriate site on the patient's nose was marked in holding. He was taken to the operating room and placed supine on the operating table. A time-out was held and confirmed. The site was carefully marked for excision and infiltrated with 1% lidocaine with epinephrine. The patient then prepped and draped in usual fashion. The circular excision was carried out just below the dermis and the specimen marked for 12 o'clock and sent for frozen section. Pathologist revealed there was no residual tumor present. This wound was closed in intermediate fashion with 4 mm of undermining and standing cones removed at the 2 ends. The skin was closed with a running 5 0 nylon. He was awakened and discharged from the operating room in stable cond ition the wound was dressed with bacitracin ointment. Surgeon: Gunnar Jacobo MD
[2020-04-30 09:00] VITALS: BP 195/97; PULSE 48; RESP 12
[2020-04-30] MEDS: hydrALAZINE HCL 20 MG/ML VIAL 5 MG IV PUSH (09:04)
--- NOTE | 2020-04-30 09:10 | SUR.PHASEII ---
[address] sorto about elevated bp 204/101.orders received,given hydralazine.
--- NOTE | 2020-04-30 09:25 | SUR.PHASEII ---
[address] sorto and aware of bp 195/97,ordered another dose of hydralazine,given.
[2020-04-30 09:30] VITALS: BP 213/100; PULSE 47; RESP 12
[2020-04-30 10:00] VITALS: BP 200/100; PULSE 48; RESP 12
--- NOTE | 2020-04-30 10:49 | SUR.PHASEII ---
1000 several bp's taken including herb with elevated bp 213/100 after hydralazine given,called dr sorto and discharge criteria met ,pt instructed to take home bp meds. pt states home bp much lower and becomes nervous at hospital.
== END 2020-04-30 10:15 | disposition home or self-care (01) ==
PROVIDERS: PCP Internal Medicine; Visit Provider Plastic Surgery
PROC: (CPT 11641; principal; 2020-04-30 07:30)
DX: C44.311 Basal cell carcinoma of skin of nose (principal); I10 Essential (primary) hypertension; E78.5 Hyperlipidemia, unspecified; J45.909 Unspecified asthma, uncomplicated; K21.9 Gastro-esophageal reflux disease without esophagitis
CPT/HCPCS: 11641; 12051; 88305; 88331; A9270; J0360; J7120

== ENCOUNTER 2020-05-11 02:06 | Outpatient (CLI) | payer MEDICARE, SELFPAY ==
[2020-05-11 20:39] LABS: SARS-CoV-2 RNA PCR Negative
== END 2020-05-11 02:07 | disposition home or self-care (01) ==
LOC: ANHCOVIDDT 02:06
PROVIDERS: PCP Internal Medicine; Visit Provider Plastic Surgery
DX: Z01.812 Encounter for preprocedural laboratory examination (principal); Z11.59 Encounter for screening for other viral diseases
CPT/HCPCS: 87635; C9803; U0003

== ENCOUNTER 2020-05-12 12:33 | Outpatient (CLI) | payer MEDICARE, SELFPAY ==
--- NOTE | ~2020-05-12 | US_ITS ---
EXAMINATION: US retroperitoneal comp EXAM DATE: 05/12/2020 13:28 INDICATION: Chronic kidney disease. TECHNIQUE: Multiple grayscale and Doppler images of the kidneys were obtained (by a technologist who performed the scan) and subsequently reviewed. Comparison is made to prior examination from 12/09/2019. FINDINGS: Right kidney: There is normal contour and increased echogenicity. It measures 10.4 x 4.8 x 4.5 centi meters. There were several subcentimeter cysts. There is no hydronephrosis. Left kidney: There is normal contour and increased echogenicity. It measures 12.5 x 5.6 x 5.5 centim eters. There is a complex cystic left renal lesion measuring 5 cm, could be layering proteinaceous cy st or cystic renal cell cancer. Several other cysts of similar size. Cysts appeared to be all simple cysts on prior study, could be that one of these have recently had hemorrhage inside. There is no hy dronephrosis. Bladder unremarkable. IMPRESSION: 1. Complex left renal cystic lesion, could layering proteinaceous cyst but renal cell cancer not exc ludable. 2. Echogenic kidneys, medical renal disease. Reviewed, dictated and finalized at location A. NT DEVELOPMENT MANAGER IMPRESSION: 1. Complex left renal cystic lesion, could layering proteinaceous cyst but jory al cell cancer not excludable. 2. Echogenic kidneys, medical renal disease.
== END 2020-05-12 12:34 | disposition home or self-care (01) ==
LOC: CHSIMG 12:38
PROVIDERS: PCP Internal Medicine; Visit Provider Internal Medicine Nephrology
DX: N18.4 Chronic kidney disease, stage 4 (severe) (principal)
CPT/HCPCS: 76770

== ENCOUNTER 2020-05-14 01:29 | Day surgery (SDC) | payer MEDICARE, SELFPAY ==
[2020-05-07 08:57] VITALS: BMI 23.3
--- NOTE | 2020-05-13 10:27 | WPDANESEPPF ---
Anes - Initial Pre Proc Eval Procedure: Operation Date: 05/14/20 09:00 Proposed Procedures p Excision Basal Cell Carcinoma Left Nasal Tip With Frozen Section, Possible Full Thickness Skin Graft - Gunnar Jacobo MD Date/Time: 05/13/20 10:27 Surgeon: Gunnar Jacobo MD Pre Op Diagnosis: BBC Left Nasal Tip Patient Data Age: 84 Gender: M Height: 1.83 m Weight: 78 kg Allergies Allergy/AdvReac Type Severity Reaction Status Date / Time No Known Allergies Allergy Verified 05/14/20 07:45 Home Medications Medication Instructions Recorded Confirmed Type albuterol sulfate 1 inh INHALATION BID PRN 02/04/20 05/07/20 History budesonide 6 mg PO QAM 02/04/20 05/14/20 History budesonide-formoterol [Symbicort] 2 puff INHALATION Q12H 02/04/20 05/14/20 History calcitriol 0.5 mcg PO DAILY 02/04/20 05/14/20 History fluticasone propionate [Flonase 1 spray INTRANASAL BID 02/04/20 05/14/20 History Allergy Relief] montelukast 10 mg PO DAILY 02/04/20 05/14/20 History nortriptyline 10 mg PO HS PRN 02/04/20 05/14/20 History omeprazole 20 mg PO BID 02/04/20 05/14/20 History carvedilol 25 mg PO BID 04/22/20 05/14/20 History multivitamin 1 tablet PO DAILY 04/22/20 05/14/20 History oxybutynin chloride 5 mg PO DAILY 04/22/20 05/14/20 History Patient hx anesthesia problems: none Family hx anesthesia problems: none [facility] Past Medical History Medical History (Updated 05/13/20 @ 10:28 by Iam Elias MD) Asthma Basal cell carcinoma (BCC) GERD (gastroesophageal reflux disease) Hyperlipidemia Hypertension Prostate CA Social History Social History Smoking status: Never smoker Alcohol intake: never Substance use: never Living arrangements: with family Gender identity (if verbalized by the patient): Male Spiritual care concerns: No Anes - Eval Final PreProcedure Day of Procedure 05/13/20 10:27 Patient weight: overweight Heart: regular rate and rhythm Lungs: clear to auscultation and normal air movement Airway: Mallampati scale class II Neurological: alert and oriented Last oral intake: >/= 8 hours ASA classification: III Emergent: no Anesthetic plan: proceed Anesthesia type and monitoring: general GIVS, LMA and ETT Informed Consent: The patient's anesthetic plan and its attendant risks and benefits were discussed with the patient/family/POA. Questions were solicited and answers provided to the satisfaction of the patient/family/POA.
--- NOTE | 2020-05-14 07:31 | WPDHPUPDATE1 ---
History and Physical Update Update Date/Time: 05/14/20 07:31 History and Physical has been reviewed, including an updated exam of the patient. There are NO changes in the patient's condition. Risks, benefits, and alternatives have been discussed and questions answered. Patient agrees to proceed with procedure.
[2020-05-14 08:10] VITALS: BP 165/108; PULSE 67; RESP 14; TEMP 36.3; O2SAT 98
[2020-05-14] MEDS: LACTATED RINGERS 1,000 ML 30 ML IV CONT (08:14)
--- NOTE | 2020-05-14 08:55 | SUR.PREOP ---
083 0DR BAEZ AWARE OF BP 165/108
[2020-05-14] MEDS: LIDO 1%/EPINEPHRINE 1:100,000 20 ML VIAL 10 ML INFILTRATE (09:55)
[2020-05-14 10:43] VITALS: BP 181/99; PULSE 61; RESP 16; O2SAT 96
--- NOTE | 2020-05-14 10:53 | PM.OP ---
Procedure Note - Brief Procedure Note - Brief Date of procedure: 05/14/20 Pre-op diagnosis: BBC Left Nasal Tip Post-op diagnosis: same Procedure performed: 1.0 cm excision of BCC of left nasal tip with FS and LTT 5.0 sq cm. Anesthesia: MAC Surgeon: Gunnar Jaocbo MD Estimated blood loss (mL): 3 Drains: No Packing: No Pathology: yes Complications: No immediate complications Condition: stable Disposition: no change
[2020-05-14 11:10] VITALS: BP 202/100; PULSE 45
[2020-05-14] MEDS: hydrALAZINE HCL 20 MG/ML VIAL 10 MG IV PUSH (11:14)
[2020-05-14 11:16] VITALS: BP 158/99; PULSE 55
[2020-05-14 11:30] VITALS: BP 145/85; PULSE 66
--- NOTE | 2020-05-14 12:07 | PM.PROC ---
Procedure Note - Detailed Date of procedure: 05/14/20 Pre-op diagnosis: BBC Left Nasal Tip Post-op diagnosis: same Procedure performed: 1 cm excision basal cell carcinoma of the left nasal tip with frozen section and local tissue transfer 5 sq cm Description of procedure: The biopsy site on the left tip of the nose was identified with the patient using a mirror and a photograph. It was marked for surgery. The patient was taken to the operating room and placed supine on the operating table. The Face was prepped and draped in usual fashion. He was given some IV sedation. A time-out was held and confirmed. The area was locally infiltrated with 1% lidocaine with epinephrine. Betadine was wiped from the biopsy site and the careful marking was made for excision of the biopsy area. The thin skin excision was carried out carefully with a 15 blade. Most superior aspect was marked with a stitch for 12 o'clock. The specimen was sent to pathology for frozen section and the pathologist reveals biopsy changes only. The skin wound was approximately 1 cm in diameter. The decision was made to close this with local tissue transfer. This involved a dorsal midline incision extending to the skin defect. The left side of the nose was undermined sufficiently to rotate and advance the flap distally to close the wound. This also allowed freedom of movement that presented the opportunity to excised the parallel adjacent scar on the right side of the nose from a recent surgery. A small amount of undermining on the right side allowed the wound to be closed with intradermal 500 Vicryl. The flap was gently tailored and insetting was done with 5 0 Vicryl and running 6 0 nylon tolerated well Anesthesia: MAC Surgeon: Gunnar Jacobo MD Estimated blood loss (mL): 3 Drains: No Packing: No Pathology: yes Complications: No immediate complications Condition: stable Disposition: same day
== END 2020-05-14 11:52 | disposition home or self-care (01) ==
PROVIDERS: PCP Internal Medicine; Visit Provider Plastic Surgery
PROC: (CPT 14060; principal; 2020-05-14 09:00)
DX: C44.311 Basal cell carcinoma of skin of nose (principal); I10 Essential (primary) hypertension; E78.5 Hyperlipidemia, unspecified; K21.9 Gastro-esophageal reflux disease without esophagitis; J45.909 Unspecified asthma, uncomplicated; Z85.46 Personal history of malignant neoplasm of prostate
CPT/HCPCS: 14060; 88305; 88331; A9270; J0360; J2250; J2405; J2704; J3010; J7120

== ENCOUNTER 2020-06-13 08:13 | Outpatient (CLI) | payer MEDICARE, SELFPAY ==
--- NOTE | ~2020-06-13 | MR_ITS ---
EXAMINATION: MR abdomen wo con INDICATION: Indeterminate kidney mass TECHNIQUE: Coronal SSFSE ARC, WATER:coronal LAVA-FLEX, Coronal 2D FIESTA FatSat, Axial SSFSE BH ARC, Axial 3D DualEcho BH, Axial SSFSE-IR, Axial DWI b=500, Axial 2D FIESTA FatSat, pre and dynamic postco ntrast Axial LAVA ARC, Coronal In and Opposed phase LAVA FLEX COMPARISON: CT dated 09/06/2019 and 08/08/2018 CONTRAST: None FINDINGS: There are trace pleural effusions. The heart size is normal. The liver, spleen, pancreas, g allbladder, and adrenal glands are normal. Cysts of the kidneys measure up to 5.9 cm on the left. The re is a 2.6 x 1.9 cm mildly T1 hyperintense, T2 hypointense lesion of the right kidney upper pole sit uated between two cysts. This has a relatively stable appearance compared to prior CTs. Further charg e or dictation is limited by the absence of intravenous contrast. No pathologically enlarged abdomina l lymph nodes. No dilated loops of bowel are present. There is no free fluid. IMPRESSION: 1. Lesion of the left kidney upper pole which could reflect a proteinaceous cyst or solid neoplasm. R elative stability over multiple examinations suggests the former. Further characterization limited by the absence of intravenous contrast. Reviewed, dictated and finalized at location A. GER RESPIRATORY IMPRESSION: 1. Lesion of the left kidney upper pole which could reflect a proteinaceous cys t or solid neoplasm. Relative stability over multiple examinations suggests the former. Further characterization limited by the absence of intravenous contras t.
== END 2020-06-13 08:14 | disposition home or self-care (01) ==
LOC: CHSIMG 08:14
PROVIDERS: PCP Internal Medicine; Visit Provider Internal Medicine Nephrology
DX: N28.1 Cyst of kidney, acquired (principal)
CPT/HCPCS: 74181

== ENCOUNTER 2020-06-30 10:31 | Outpatient (CLI) | payer MEDICARE, SELFPAY ==
[2020-06-30] MEDS: DENOSUMAB 60 MG/ML SYRINGE SUB-Q (10:41)
== END 2020-06-30 10:32 | disposition home or self-care (01) ==
LOC: CHSTREATRM 10:33
PROVIDERS: PCP Internal Medicine; Visit Provider Internal Medicine
DX: M81.0 Age-related osteoporosis without current pathological fracture (principal)
CPT/HCPCS: 96372; J0897

== ENCOUNTER → 2020-08-10 01:13 | Outpatient (CLI) | payer MEDICARE, SELFPAY ==
[2020-08-10 18:28] LABS: SARS-CoV-2 RNA PCR Negative
== END ==
PROVIDERS: PCP Internal Medicine; Visit Provider Plastic Surgery
DX: Z01.812 Encounter for preprocedural laboratory examination (principal); Z20.822 Contact with and (suspected) exposure to COVID-19
CPT/HCPCS: C9803; U0003; U0005

== ENCOUNTER 2020-08-13 01:09 | Day surgery (SDC) | payer MEDICARE, SELFPAY ==
[2020-08-06 15:46] VITALS: BMI 27.8
--- NOTE | 2020-08-13 07:09 | WPDHPUPDATE1 ---
History and Physical Update Update Date/Time: 08/13/20 07:09 History and Physical has been reviewed, including an updated exam of the patient. There are NO changes in the patient's condition. Risks, benefits, and alternatives have been discussed and questions answered. Patient agrees to proceed with procedure.
--- NOTE | 2020-08-13 07:10 | WPDHPUPDATE1 ---
History and Physical Update Update Date/Time: 08/13/20 07:10 History and Physical has been reviewed, including an updated exam of the patient. There are NO changes in the patient's condition. Risks, benefits, and alternatives have been discussed and questions answered. Patient agrees to proceed with procedure.
[2020-08-13 10:10] VITALS: BP 132/55; PULSE 64; RESP 16; TEMP 36.8; O2SAT 100
[2020-08-13] MEDS: LACTATED RINGERS 1,000 ML 30 ML IV CONT (10:22)
--- NOTE | 2020-08-13 10:54 | WPDANESEPPF ---
Anes - Initial Pre Proc Eval Procedure: Operation Date: 08/13/20 12:30 Proposed Procedures p Excision Of Neoplasm Of Unspecified Behavior Right Nasal Ala, With Frozen Section And Possible Full Thickness Skin Graft or Local Tissue Transfer - Gunnar Jacobo MD Date/Time: 08/13/20 10:54 Surgeon: Gunnar Jacobo MD Pre Op Diagnosis: Neoplasm Unspecified Behavior Right Nasal Ala Patient Data Age: 84 Gender: M Height: 5 ft 6 in Weight: 78.05 kg Allergies Allergy/AdvReac Type Severity Reaction Status Date / Time No Known Allergies Allergy Verified 08/13/20 10:30 Home Medications Medication Instructions Recorded Confirmed Type albuterol sulfate 1 inh INHALATION BID PRN 02/04/20 08/13/20 History budesonide 6 mg PO QAM 02/04/20 08/13/20 History calcitriol 0.5 mcg PO DAILY 02/04/20 08/13/20 History fluticasone propionate [Flonase 1 spray INTRANASAL BID 02/04/20 08/13/20 History Allergy Relief] montelukast 10 mg PO DAILY 02/04/20 08/13/20 History nortriptyline 10 mg PO HS PRN 02/04/20 08/13/20 History omeprazole 20 mg PO BID 02/04/20 08/13/20 History carvedilol 25 mg PO BID 04/22/20 08/13/20 History multivitamin 1 tablet PO DAILY 04/22/20 08/13/20 History oxybutynin chloride 5 mg PO HS 04/22/20 08/13/20 History fluticasone propion-salmeterol 2 inh INHALATION BID 08/06/20 08/13/20 History [Advair Diskus] Patient hx anesthesia problems: none Family hx anesthesia problems: none [facility] Past Medical History Medical History (Updated 05/13/20 @ 10:28 by Iam Elias MD) Asthma Basal cell carcinoma (BCC) GERD (gastroesophageal reflux disease) Hyperlipidemia Hypertension Prostate CA Social History Social History Smoking status: Never smoker Alcohol intake: never Substance use: never Living arrangements: with family Gender identity (if verbalized by the patient): Male Spiritual care concerns: No Anes - Eval Final PreProcedure Day of Procedure 08/13/20 10:54 Patient weight: overweight Heart: regular rate and rhythm Lungs: clear to auscultation Airway: Mallampati scale class II Neurological: alert and oriented Last oral intake: >/= 8 hours ASA classification: III Emergent: no Anesthetic plan: proceed Anesthesia type and monitoring: general GIVS (with LMA) and standard monitoring Informed Consent: The patient's anesthetic plan and its attendant risks and benefits were discussed with the patient/family/POA. Questions were solicited and answers provided to the satisfaction of the patient/family/POA.
--- NOTE | 2020-08-13 12:07 | SUR.PREOP ---
Up to bathroom. Discussed possible delay.
[2020-08-13] MEDS: LIDO 1%/EPINEPHRINE 1:100,000 50 ML VIAL 7 ML INFILTRATE (12:56)
--- NOTE | 2020-08-13 13:05 | SUR.OPER ---
SPECIMEN 1 SENT FRESH FOR F/S TO PATHOLOGY PER [facility] PCT RECEIVED BY SANDY 13:06.
--- NOTE | 2020-08-13 13:23 | SUR.OPER ---
#2 SPECIMEN TO PATHOLOGY FRESH F/S PER [facility] PCT RECEIVED BY SANDY Rubin5
--- NOTE | 2020-08-13 14:02 | SUR.OPER ---
BILATERAL EYE RINSE POST SURGERY 1402/NO REDNESS IN EYES NOTED AND CLEAN PRIOR TO RINSE PER [facility]
[2020-08-13 14:07] VITALS: BP 164/99; PULSE 71; RESP 16; TEMP 36.8; O2SAT 95
--- NOTE | 2020-08-13 14:13 | PM.PROC ---
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 He was taken to the operating room and placed supine on the operating table. Time-out was held and confirmed. He was given general anesthesia with an LMA. The face was prepped and draped in usual fashion. The site was marked for excision and locally infiltrated with 1% lidocaine with epinephrine. The incision was made and the lesion was taken off in the subcutaneous tissue. The superior aspect was marked with a suture for 12 o'clock and sent to frozen section. The pathologist reported that the deep margin was positive. We had already anticipated that I had removed the deep margin as a separate specimen. It was also marked at the superior aspect for 12 o'clock and the old deep margin was inked. The pathologist reported that margins were free. The wound was closed with a local tissue transfer using a subcutaneously based random flap from the adjacent nasal labial fold. This area was undermined as needed and the subcutaneous pedicle was from the superior aspect. The donor site was closed with 4-0 Vicryl and 5 0 nylon. The flap was inset with 5 0 nylon. The patient was discharged home with instructions in wound care and follow-up no prescriptions were sent Surgeon: Gunnar Jacobo MD
[2020-08-13 14:30] VITALS: BP 177/96; PULSE 62; RESP 20
[2020-08-13 15:00] VITALS: BP 178/98; PULSE 60; RESP 16
--- NOTE | 2020-08-13 15:15 | SUR.PHASEII ---
1445 - pt's blood pressure manually checked. b/p 178/96. dr. petersen called. pt encouraged to resume b/p medication at home. pt verbalized understanding 1505 - pt bleeding from surgical site. dr. soliman aware and wants to see pt before discharge. called and aware.
--- NOTE | 2020-08-13 15:33 | SUR.PHASEII ---
1525 - dr. soliman called and updated on pt's status. spoke to pt in regards to pressure dressing while at home. pt verbalized understanding.
== END 2020-08-13 15:25 | disposition home or self-care (01) ==
PROVIDERS: PCP Internal Medicine; Visit Provider Plastic Surgery
PROC: (CPT 14060; principal; 2020-08-13 12:30)
DX: C44.321 Squamous cell carcinoma of skin of nose (principal); I10 Essential (primary) hypertension; E78.5 Hyperlipidemia, unspecified; J45.909 Unspecified asthma, uncomplicated; K21.9 Gastro-esophageal reflux disease without esophagitis; Z85.46 Personal history of malignant neoplasm of prostate
CPT/HCPCS: 14060; 88305; 88331; A9270; J1100; J2405; J2704; J3010; J7120

== ENCOUNTER 2020-10-14 10:46 | Outpatient (CLI) | payer MEDICARE, SELFPAY ==
--- NOTE | ~2020-10-14 | MR_ITS ---
EXAMINATION: MR abdomen wo con DATE: 10/14/2020 11:46 INDICATION: Neoplasm of left kidney. TECHNIQUE: Magnetic resonance imaging (MRI) of the abdomen was performed without intravenous contrast . Sequences included coronal T2-weighted FS FSE, coronal and axial FIESTA FS, coronal LAVA-flex, axia l LAVA, axial T2-weighted FSE, axial T1-weighted dual-echo FSPGR, axial STIR FSE, and axial DWI. COMPARISON: Abdomen MRI 06/13/2020, ultrasound 05/12/2020, CT abdomen and pelvis 09/06/2019, 08/28/17 FINDINGS: Cardiomegaly is noted. No pericardial effusion. The liver, gallbladder, and spleen are normal. There are 2 cystic lesions of the pancreas measuring up to 6 mm, likely benign. The adrenal glands are norm al. There are cysts in the kidneys measuring up to 5.3 cm on the left. In left kidney upper pole, the re is a 2.6 cm mass that demonstrates increased T1-weighted signal intensity and decreased T2 weighte d signal intensity relative to normal kidney. There are no dilated loops of bowel. There are no patho logically enlarged lymph nodes. There is no free intraperitoneal fluid. IMPRESSION: 1. 2.6 cm left kidney mass, stable from 09/06/19 and increased from 2.2 cm on 08/28/17. The differential diagnosis includes hemorrhagic cyst and neoplasm. Reviewed, dictated and finalized at location A. IMPRESSION: 1. 2.6 cm left kidney mass, stable from 09/06/19 and increased from 2.2 cm on 08/04 12/18. The differential diagnosis includes hemorrhagic cyst and neoplasm.
== END 2020-10-14 10:47 | disposition home or self-care (01) ==
PROVIDERS: PCP Internal Medicine; Visit Provider Urology
DX: D41.02 Neoplasm of uncertain behavior of left kidney (principal)
CPT/HCPCS: 74181

== ENCOUNTER 2020-12-02 10:00 | Outpatient (CLI) | payer MEDICARE, SELFPAY ==
--- NOTE | ~2020-12-02 | DEXA_ITS ---
Bone Density Report Name: Miguel A Richter Age: 85 Sex: Male Ethnicity: White Date of : 1935 Indication: osteopenia; height loss; prior fracture; asthma or emphysema; Referring Provider: Kia Love Study: Bone densitometry was performed. Exam Date: December 02, 2020 Accession number: [id number] Bone Density: Region BMD T-score Z-score Classification AP Spine(L1-L4) 0.953 -1.3 0.1 Osteopenia Femoral Neck (Left) 0.682 -1.8 -0.1 Osteopenia Total Hip (Left) 0.913 -0.8 0.5 Normal Femoral Neck (Right) 0.674 -1.9 -0.2 Osteopenia Total Hip (Right) 0.896 -0.9 0.4 Normal Femoral Neck Mean 0.678 -1.9 -0.1 Osteopenia Total Hip Mean 0.905 -0.9 0.4 Normal World Health Organization criteria for BMD impression classify patients as: Normal (T-score at or above -1.0), Osteopenia (T-score between -1.0 and -2.5), or Osteoporosis (T-score at or below -2.5). 10-year Fracture Risk(1): Major Osteoporotic Fracture 11% Hip Fracture 4.2% Reported Risk Factors: [place] (), Neck BMD=0.674, BMI=23.3, previous fracture (1) FRAX(R) Version 3.08. Fracture probability calculated for an untreated patient. Fracture probability may be lower if the patient has received treatment. Previous Exams: Region Exam Age BMD T-score BMD Change BMD Change Date g/cm2 vs Baseline vs Previous AP Spine (L1-L4) 12/02/2020 85 0.953 -1.3 0.050 (5.5%)# 0.014 (1.5%)# 07/28/2017 81 0.939 -1.4 0.036 (4.0%)* -0.086 (-8.4%) 01/16/2015 79 1.025 -0.6 0.122 (13.5%)* 0.122 (13.5%)* 04/02/2010 74 0.903 -1.7 Total Hip(Left) 12/02/2020 85 0.913 -0.8 0.001 (0.1%)# 0.022 (2.5%)# 07/28/2017 81 0.891 -0.9 -0.021 (-2.3%) -0.025 (-2.7%) 01/16/2015 79 0.916 -0.8 0.004 (0.4%) 0.004 (0.4%) 04/02/2010 74 0.913 -0.8 Total Hip(Right) 12/02/2020 85 0.896 -0.9 0.059 (7.0%)# 0.059 (7.0%)# 04/02/2010 74 0.837 -1.3 *Denotes significance at 95% confidence level, LSC for AP Spine = 0.022 g/cm2, LSC for Total Hip = 0.027 g/cm2 # Denotes dissimilar scan types or analysis methods Clinical Information Provided by Patient: Has had a low trauma fracture Has used the following medications: Prolia (i.e. denosumab), Vitamin D, Calcium Has the following medical conditions: Asthma or Emphysema Patient maximum height was 74 No regular weight bearing exercise Drinks caffeinated beverages Impression: The pat
== END 2020-12-02 10:01 | disposition home or self-care (01) ==
LOC: CHSIMG 10:01
PROVIDERS: PCP Internal Medicine; Visit Provider Internal Medicine
DX: M81.0 Age-related osteoporosis without current pathological fracture (principal)
CPT/HCPCS: 77080

== ENCOUNTER 2020-12-30 10:00 | Outpatient (CLI) | payer MEDICARE, SELFPAY ==
--- NOTE | ~2020-12-30 | MR_ITS ---
EXAMINATION: MR brain/brain stem wo con DATE: 01/01/2021 15:15 INDICATION: Dementia. TECHNIQUE: Magnetic resonance imaging (MRI) of the brain and brainstem was performed without intraven ous contrast. Sequences included sagittal and axial T1-weighted FSE, axial diffusion-weighted FS EPI, axial T2*-weighted GRE, axial T2-weighted FLAIR Propeller, and axial T2-weighted Propeller. Facet Ap parent diffusion coefficient (ADC) maps were created. COMPARISON: Brain MRI 01/28/2020 FINDINGS: There is no acute infarction or abnormal intracranial mass lesion. There are scattered area s of nonspecific increased T2-weighted signal intensity in the cerebral white matter. There is an old infarct involving the right basal ganglia, anterior limb right internal capsule, and right frontal l obe hardwick radiata. There are punctate foci of old microhemorrhage in the right cerebrum and bilatera l basal ganglia. The ventricles are normal in size. There are likely changes of ocular lens replaceme nt surgeries. The paranasal sinuses are clear. The mastoid air cells are normal. IMPRESSION: 1. 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 2. Stable moderate cerebral white matter disease and foci of old microhemorrhage in the brain, consis tent with chronic hypertensive encephalopathy. Reviewed, dictated and finalized at location A. IMPRESSION: 1. 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 2. Stable moderate cerebral white matter disease and foci of old microhemorrhag e in the brain, consistent with chronic hypertensive encephalopathy.
[2020-12-30 10:10] VITALS: BP 130/68; PULSE 72; RESP 14; O2SAT 96
[2020-12-30 10:25] VITALS: BMI 27.4
[2020-12-30] MEDS: DENOSUMAB 60 MG/ML SYRINGE SUB-Q (10:30)
--- NOTE | 2020-12-30 10:31 | PC.NURSE ---
Patient here for q 6 month Prolia injection SC. Medications reviewed. No concerns. Prolia injection administered. Safe exit of hospital. Will return in 6 months.
== END 2020-12-30 10:01 | disposition home or self-care (01) ==
PROVIDERS: PCP Internal Medicine; Visit Provider Internal Medicine
DX: M81.0 Age-related osteoporosis without current pathological fracture (principal)
CPT/HCPCS: 70551; 96372; J0897

== ENCOUNTER 2021-03-29 09:05 | Outpatient (CLI) | payer MEDICARE, OTHER, SELFPAY ==
[2021-03-29 09:20] LABS: Add Urine Microscopic? YES; Appearance Urine Clear (Clear); Bilirubin Urine Negative (Negative); Blood Urine Negative (Negative); Color Urine Light Yellow (Yellow); Glucose Urine UA Negative (Negative); Hematocrit 37.2 % (37.0-46.0); Hemoglobin 12.8 g/dL (12.4-15.3); Ketones Urine Negative (Negative); Leukocyte Esterase Ur Trace (Negative); Mean Corpuscular HGB Conc 34.4 g/dL (32.0-36.0); Mean Corpuscular Hemoglobin 33.4 pg (27.0-31.0); Mean Corpuscular Volume 97.1 fL (78.0-102.0); Mean Platelet Volume 8.4 fl (8.7-11.0); Nitrate Urine Negative (Negative); Platelet Count Result 124 K/mm3 (150-420); Protein Urine Trace (Negative); Red Blood Count 3.83 M/mm3 (4.70-6.10); Red Cell Distribution Width 13.9 % (11.6-14.4); Urobilinogen Urine 0.2 mg/dL (0.2-1.0); White Blood Count 5.4 K/mm3 (4.8-10.8)
[2021-03-29 10:08] LABS: RBC Urine None seen /hpf (0-2); WBC Urine 0-3 /hpf (0-3)
[2021-03-29 10:09] LABS: Bacteria Urine None seen /hpf
[2021-03-29 10:52] LABS: Alanine Aminotransferase 36 U/L (16-63); Albumin Level 3.6 g/dL (3.4-5.0); Alkaline Phosphatase 39 U/L (46-116); Anion Gap 7 mmol/L (8-16); Aspartate Amino Transferase 17 U/L (15-37); Bilirubin,Total 0.6 mg/dL (0.00-1.00); Blood Urea Nitrogen 32 mg/dL (7-18); Calcium 8.6 mg/dL (8.5-10.1); Carbon Dioxide 31 mmol/L (21-32); Chloride 107 mmol/L (98-108); Cholesterol 149 mg/dL (0-200); Estimated Glomerular Filt Rate 21; Ferritin 126 ng/mL (26-388); Free T3 2.67 pg/mL (2.18-3.98); Free T4 Free Thyroxine 1.16 ng/dL (0.76-1.46); Glucose 90 mg/dL (70-99); HDL Direct 56 mg/dL (40-60); Iron 72 ug/dL (65-175); LDL Cholesterol Calculated 81 mg/dL (<130); Osmolality Calculated 306 mOsm/kg (285-295); Percent Iron Saturation 28 % (12-57); Potassium 3.6 mmol/L (3.5-5.1); Sodium 145 mmol/L (136-145); Thyroid Stimulating Hormone 2.15 uIU/mL (0.36-3.74); Total Protein 5.9 g/dL (6.4-8.2); Triglycerides 61 mg/dL (0-150); Vitamin B12 1392 pg/mL (193-986)
[2021-03-29 11:08] LABS: Band Neutrophils Percent 0 % (0-6); Neutrophils Absolute Manual 3.34 K/mm3 (1.3-6.7); Neutrophils Percent Manual 62 % (46-73); Total Cells Counted 100
[2021-03-29 11:09] LABS: Eosinophils Percent Manual 2 % (1-6); Lymphocytes Absolute Manual 1.29 K/mm3 (1.1-4.5); Lymphocytes Percent Manual 24 % (18-44); Monocytes Absolute Manual 0.64 K/mm3 (0.1-0.90); Monocytes Percent Manual 12 % (3-9)
[2021-03-29 11:10] LABS: Platelet Estimate Adequate (Adequate)
== END 2021-03-29 09:06 | disposition home or self-care (01) ==
LOC: CHSLAB 09:09
PROVIDERS: PCP Internal Medicine; Visit Provider Internal Medicine
DX: G62.9 Polyneuropathy, unspecified (principal); I12.9 Hypertensive chronic kidney disease with stage 1 through stage 4 chronic kidney disease, or unspecified chronic kidney disease; N18.4 Chronic kidney disease, stage 4 (severe); K50.019 Crohn's disease of small intestine with unspecified complications; D50.0 Iron deficiency anemia secondary to blood loss (chronic)
CPT/HCPCS: 36415; 80053; 80061; 81001; 82607; 82728; 83540; 83550; 84439; 84443; 84481; 85025

== ENCOUNTER 2021-06-11 09:40 | Outpatient (CLI) | payer MEDICARE, OTHER, SELFPAY ==
--- NOTE | ~2021-06-11 | XR_ITS ---
EXAMINATION: XR chest 2V DATE: 06/11/2021 10:24 INDICATION: Upper respiratory infection symptoms, chest congestion TECHNIQUE: PA and lateral views of the chest are obtained. COMPARISON: 08/05/2019 FINDINGS: The lungs are free of acute opacities. There is no pleural effusion or pneumothorax. The ca rdiomediastinal silhouette is normal. There is moderate thoracic spondylosis. IMPRESSION: 1. No acute cardiopulmonary abnormality. Reviewed, dictated and finalized at location A. ICE PROFESSOR
[2021-06-11 10:36] LABS: Basophils Absolute Auto 0.01 K/mm3 (0.00-0.10); Basophils Percent Auto 0.1 % (0.0-1.0); Eosinophils Absolute Auto 0.09 K/mm3 (0.02-0.50); Eosinophils Percent Auto 1.3 % (1.0-6.0); Hematocrit 37.3 % (37.0-46.0); Hemoglobin 12.9 g/dL (12.4-15.3); Immature Granulocyte Absolute 0.03 K/mm3 (0.00-0.00); Immature Granulocyte Percent A 0.4 % (0.0-0.0); Lymphocytes Absolute Auto 1.08 K/mm3 (1.10-4.50); Lymphocytes Percent Auto 15.8 % (18.0-42.0); Mean Corpuscular HGB Conc 34.6 g/dL (32.0-36.0); Mean Corpuscular Volume 98.4 fL (78.0-102.0); Mean Platelet Volume 8.7 fl (8.7-11.0); Monocytes Absolute Auto 0.51 K/mm3 (0.10-0.90); Monocytes Percent Auto 7.5 % (2.0-11.0); Neutrophils Absolute Auto 5.1 K/mm3 (1.7-7.2); Neutrophils Percent Auto 74.9 % (50.0-70.0); Platelet Count Result 131 K/mm3 (150-420); Red Blood Count 3.79 M/mm3 (4.70-6.10); Red Cell Distribution Width 13.6 % (11.6-14.4); White Blood Count 6.8 K/mm3 (4.8-10.8)
[2021-06-11 10:42] LABS: Influenza Control Valid (Valid)
[2021-06-11 10:47] LABS: SARS-CoV-2 Ag Negative (Negative)
== END 2021-06-11 09:41 | disposition home or self-care (01) ==
LOC: CHSLAB 09:44
PROVIDERS: PCP Internal Medicine; Visit Provider Internal Medicine
DX: J06.9 Acute upper respiratory infection, unspecified (principal); Z20.822 Contact with and (suspected) exposure to COVID-19
CPT/HCPCS: 71046; 85025; 87081; 87426; 87804; 87880; C9803

== ENCOUNTER 2021-07-01 10:11 | Outpatient (CLI) | payer MEDICARE, OTHER, SELFPAY ==
[2021-07-01] MEDS: DENOSUMAB 60 MG/ML SYRINGE SUB-Q (10:36)
--- NOTE | 2021-07-01 10:38 | PC.NURSE ---
Patient here for Prolia SC injection. Last dose was December 2020. Education on med given. No concerns. Infection given SEE AUG. Tolerated well. Safe exit of hospital.
== END 2021-07-01 10:12 | disposition home or self-care (01) ==
LOC: CHSTREATRM 10:13
PROVIDERS: PCP Internal Medicine; Visit Provider Internal Medicine
DX: M81.0 Age-related osteoporosis without current pathological fracture (principal)
CPT/HCPCS: 96372; J0897

== ENCOUNTER 2021-07-14 09:54 | Outpatient (RCR) | payer MEDICARE, OTHER, SELFPAY ==
--- NOTE | 2021-07-14 10:57 | PTOPEVAL ---
Thank you for referring Miguel A Richter to [facility].? The patient is scheduled to be seen for therapy? ____x/week for ___ weeks. Please review, sign, date and return this plan of care JOSE L. I agree with and certify that the following plan of care is medically necessary. Referring Physician Date Admitting Provider: Attending Provider: Kia Love MD Referring Provider: *PT Outpatient Evaluation Start: 07/14/21 09:49 Freq: Status: Active Protocol: Document 07/14/21 09:49 ACR (Rec: 07/14/21 10:50 ACR [email or web address]) Therapy Assessment Status Assessment Status Assessment Status Evaluation Outpatient Past Medical History Neurological History Hx Neurological Disorders No Significant History Cardiovascular History Hx Hypertension Yes Respiratory History Hx Asthma Yes Gastrointestinal History Hx Crohn's Disease Yes: Bowel Resection ~ 1989 Hx Gastroesophageal Reflux Disease Yes Genitourinary History Hx Kidney Stones Yes: PASSED ON OWN Hx Prostatectomy Yes: ~ 1999 PROSTATE CA Hx Renal Disease Yes: DR PETERSEN Musculoskeletal History Hx Arthritis Yes: HIPS AND BACK Hx Orthopedic Surgery Yes: RT FOOT- WITH PINS Hematological History Hx Hematological Disorders No Significant History Endocrine History Hx Endocrine Disorders No Significant History HEENT History Hx Other HEENT Disorders Yes: GLASSES Integumentary History Hx Other Skin Disorders Yes: NEOPLASM UNSPECIFIED BEHAVIOR RT NASAL ALA Reproductive History Hx Reproductive Disorders No Significant History Psychosocial History Hx Anxiety Yes Pain History History of Any Previous or Ongoing No Significant History Instance of Pain Anesthesia History Hx Anesthesia Reactions No Significant History Other History Hx Cancer Yes: Prostate Cancer, BASAL CA -NOSE Hx Implanted Device Yes: RT FOOT Evaluation Information Problem Diagnosis chronic low back pain Onset 07/03/21 Subjective Information Patient states that about 2 Query Text:As Reported By Patient/ weeks ago pain started Family shooting down his leg. He states he was on a little ladder power washing a trailer and started having the pain. He states the pain is down the leg into the foot. He states that walking, sleeping, transitioning from a sitting position to a standing
--- NOTE | 2021-08-09 15:06 | PTOPEVAL ---
Thank you for referring Miguel A Richter to [facility] The patient is scheduled to be seen for therapy? ____x/week for ___ weeks. Please review, sign, date and return this plan of care JOSE L. I agree with and certify that the following plan of care is medically necessary. Referring Physician Date Admitting Provider: Attending Provider: Kia Love MD Referring Provider: *PT Outpatient Evaluation Start: 07/14/21 09:49 Freq: Status: Active Protocol: Document 08/09/21 13:58 ACR (Rec: 08/09/21 15:05 ACR [id number]) Therapy Assessment Status Assessment Status Assessment Status Progress Outpatient Past Medical History Neurological History Hx Neurological Disorders No Significant History Cardiovascular History Hx Hypertension Yes Respiratory History Hx Asthma Yes Gastrointestinal History Hx Crohn's Disease Yes: Bowel Resection ~ 1989 Hx Gastroesophageal Reflux Disease Yes Genitourinary History Hx Kidney Stones Yes: PASSED ON OWN Hx Prostatectomy Yes: ~ 1999 PROSTATE CA Hx Renal Disease Yes: DR PETERSEN Musculoskeletal History Hx Arthritis Yes: HIPS AND BACK Hx Orthopedic Surgery Yes: RT FOOT- WITH PINS Hematological History Hx Hematological Disorders No Significant History Endocrine History Hx Endocrine Disorders No Significant History HEENT History Hx Other HEENT Disorders Yes: GLASSES Integumentary History Hx Other Skin Disorders Yes: NEOPLASM UNSPECIFIED BEHAVIOR RT NASAL ALA Reproductive History Hx Reproductive Disorders No Significant History Psychosocial History Hx Anxiety Yes Pain History History of Any Previous or Ongoing No Significant History Instance of Pain Anesthesia History Hx Anesthesia Reactions No Significant History Other History Hx Cancer Yes: Prostate Cancer, BASAL CA -NOSE Hx Implanted Device Yes: RT FOOT Evaluation Information Problem Diagnosis chronic low back pain Onset 07/03/21 Subjective Information Patient states that he is Query Text:As Reported By Patient/ feeling a lot better since Family beginning therapy. He states that he is doing his exercises at home as much as he can. He states that he feels more mobile and the pain is relieved a little bit. He is sleeping a little bit better but is still needing to take muscle relaxers and pain. Pain Assessme
--- NOTE | 2021-08-20 15:09 | PTOPEVAL ---
Thank you for referring Miguel A Jacobson to [facility].? The patient is scheduled to be seen for therapy? ____x/week for ___ weeks. Please review, sign, date and return this plan of care JOSE L. I agree with and certify that the following plan of care is medically necessary. Referring Physician Date Admitting Provider: Attending Provider: Kia Love MD Referring Provider: *PT Outpatient Evaluation Start: 07/14/21 09:49 Freq: Status: Active Protocol: Document 08/20/21 14:00 [facility] (Rec: 08/20/21 15:08 [facility] [id number]) Therapy Assessment Status Assessment Status Assessment Status Re-evaluation Outpatient Past Medical History Neurological History Hx Neurological Disorders No Significant History Cardiovascular History Hx Hypertension Yes Respiratory History Hx Asthma Yes Gastrointestinal History Hx Crohn's Disease Yes: Bowel Resection ~ 1989 Hx Gastroesophageal Reflux Disease Yes Genitourinary History Hx Kidney Stones Yes: PASSED ON OWN Hx Prostatectomy Yes: ~ 1999 PROSTATE CA Hx Renal Disease Yes: DR PETERSEN Musculoskeletal History Hx Arthritis Yes: HIPS AND BACK Hx Orthopedic Surgery Yes: RT FOOT- WITH PINS Hematological History Hx Hematological Disorders No Significant History Endocrine History Hx Endocrine Disorders No Significant History HEENT History Hx Other HEENT Disorders Yes: GLASSES Integumentary History Hx Other Skin Disorders Yes: NEOPLASM UNSPECIFIED BEHAVIOR RT NASAL ALA Reproductive History Hx Reproductive Disorders No Significant History Psychosocial History Hx Anxiety Yes Pain History History of Any Previous or Ongoing No Significant History Instance of Pain Anesthesia History Hx Anesthesia Reactions No Significant History Other History Hx Cancer Yes: Prostate Cancer, BASAL CA -NOSE Hx Implanted Device Yes: RT FOOT Evaluation Information Problem Diagnosis chronic low back pain Onset 07/03/21 Additional Evaluation Detail oswestry = 50% functionally declined (slightly increased despite patient saying he feels better overall) Subjective Information mr. jacobson reports he feels Query Text:As Reported By Patient/ better overall. his oswestry Family score is slightly worse, but this could be due to patient able to tolerate more activities and better adequately score them. he
--- NOTE | 2021-09-30 14:58 | PTOPEVAL ---
Thank you for referring Miguel A Richter to [facility] [place].? The patient is scheduled to be seen for therapy? ____x/week for ___ weeks. Please review, sign, date and return this plan of care JOSE L. I agree with and certify that the following plan of care is medically necessary. Referring Physician Date Admitting Provider: Attending Provider: Kia Love MD Referring Provider: *PT Outpatient Evaluation Start: 07/14/21 09:49 Freq: Status: Active Protocol: Document 09/30/21 14:18 [facility] (Rec: 09/30/21 14:56 [facility] [id number]) Therapy Assessment Status Assessment Status Assessment Status Discharge Outpatient Past Medical History Neurological History Hx Neurological Disorders No Significant History Cardiovascular History Hx Hypertension Yes Respiratory History Hx Asthma Yes Gastrointestinal History Hx Crohn's Disease Yes: Bowel Resection ~ 1989 Hx Gastroesophageal Reflux Disease Yes Genitourinary History Hx Kidney Stones Yes: PASSED ON OWN Hx Prostatectomy Yes: ~ 1999 PROSTATE CA Hx Renal Disease Yes: DR PETERSEN Musculoskeletal History Hx Arthritis Yes: HIPS AND BACK Hx Orthopedic Surgery Yes: RT FOOT- WITH PINS Hematological History Hx Hematological Disorders No Significant History Endocrine History Hx Endocrine Disorders No Significant History HEENT History Hx Other HEENT Disorders Yes: GLASSES Integumentary History Hx Other Skin Disorders Yes: NEOPLASM UNSPECIFIED BEHAVIOR RT NASAL ALA Reproductive History Hx Reproductive Disorders No Significant History Psychosocial History Hx Anxiety Yes Pain History History of Any Previous or Ongoing No Significant History Instance of Pain Anesthesia History Hx Anesthesia Reactions No Significant History Other History Hx Cancer Yes: Prostate Cancer, BASAL CA -NOSE Hx Implanted Device Yes: RT FOOT Evaluation Information Problem Diagnosis chronic low back pain Onset 07/03/21 Additional Evaluation Detail oswestry = 22% functionally declined Subjective Information patient reports he feels good Query Text:As Reported By Patient/ this date. he reports his Family pain is down overall. he reports the back is feeling much better, but from time to time with continue to have soreness in the back and legs with increased activities. Pain Assessment Timing of Pain Assessment Timing of Pain Assessment Assess
== END 2021-09-30 15:45 | disposition home or self-care (01) ==
LOC: CHSPT 09:54
PROVIDERS: PCP Internal Medicine; Visit Provider Internal Medicine
DX: M54.50 Low back pain, unspecified (principal); M25.559 Pain in unspecified hip
CPT/HCPCS: 97014; 97110; 97140; 97161; 97530; G0283

== ENCOUNTER 2021-07-16 11:34 | Emergency (ER) | payer MEDICARE, OTHER, SELFPAY ==
--- NOTE | ~2021-07-16 | CT_ITS ---
EXAMINATION: CT lumbar spine wo con DATE: 07/16/2021 13:12 INDICATION: Low back pain. TECHNIQUE: Computed tomography (CT) of the lumbar spine was performed without intravenous contrast. A utomated exposure control and iterative reconstruction technique were employed. The dose-length produ ct was 408.51 mGy-cm. COMPARISON: CT abdomen and pelvis 09/06/2019 FINDINGS: Partially visualized are cysts in left kidney. There is 3 mm anterolisthesis of L4 on L5. V ertebral body heights are normal. There is severely decreased disc height at L5-S1 with endplate violet deling. There are a few scattered benign bone islands. The following disc levels are specifically dis cussed: L1-L2: The disc does not extend beyond the endplate margin. There is mild bilateral facet joint osteo arthritis. There is no neural foraminal stenosis. There is no central canal stenosis. L2-L3: The disc is mildly bulging. There is mild bilateral facet joint osteoarthritis. There is mild bilateral neural foraminal stenosis. There is mild central canal stenosis. L3-L4: The disc is bulging. There is moderate right and severe left facet joint osteoarthritis. There is mild bilateral neural foraminal stenosis. There is mild central canal stenosis. L4-L5: The disc is bulging. There is severe bilateral facet joint osteoarthritis. There is moderate b ilateral neural foraminal stenosis. There is mild central canal stenosis. L5-S1: The disc is bulging. There is severe bilateral facet joint osteoarthritis. There is mild right and moderate left neural foraminal stenosis. There is mild central canal stenosis. IMPRESSION: 1. Severe lower lumbar spondylosis. Reviewed, dictated and finalized at location B. T [employer]
--- NOTE | ~2021-07-16 | CT_ITS ---
EXAMINATION: CT pelvis wo con DATE: 07/16/2021 13:12 INDICATION: Right hip pain. Right-sided low back pain. Prostate cancer. TECHNIQUE: Computed tomography (CT) of the pelvis was performed without intravenous contrast. Automat ed exposure control and iterative reconstruction technique were employed. The dose-length product was 408.51 mGy-cm. COMPARISON: CT abdomen and pelvis 09/06/2019 FINDINGS: Partially visualized are cysts in left kidney measuring up to 5.3 cm. There are 4 mm and 1 mm stones in right kidney. There are no dilated loops of bowel. There are changes of prostatectomy an d pelvic lymph node dissection. There is a right inguinal hernia containing fat. There are no patholo gically enlarged lymph nodes. There is no free intraperitoneal fluid. There are a few chronic scatter ed benign bone islands. There is mild osteoarthritis of the hips. There is severe lower lumbar spondy losis. IMPRESSION: 1. Mild osteoarthritis of the hips. 2. Right inguinal hernia containing fat. Reviewed, dictated and finalized at location B. 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
[2021-07-16 12:03] VITALS: BP 100/71; PULSE 71; RESP 16; TEMP 36.7; O2SAT 95
[2021-07-16] MEDS: KETOROLAC (*BKC) 60 MG/2 ML VIAL IM (12:32)
--- NOTE | 2021-07-16 13:21 | ED.BACK ---
HPI - Back Pain/Injury General Chief Complaint: Back Pain/Injury Stated Complaint: Back pain Time Seen by Provider: 07/16/21 11:36 Source: patient and RN notes reviewed Mode of arrival: ambulatory Limitations: no limitations History of Present Illness MD elicited complaint: back pain Pertinent past history: prior back pain and arthritis Onset (ago): day(s) (1) Timing: progressively worsening Severity: mild Pain scale (0-10): 7 Similar Symptoms Previously: Yes Quality: dull, aching and throbbing Location: lumbar spine and left lower back Radiation: buttocks Exacerbating factors: movement and walking Relieving factors: immobilization Associated symptoms: denies other symptoms Work related injury: No Related Data Home Medications Medication Instructions Recorded Confirmed albuterol sulfate 1 inh INHALATION BID PRN 02/04/20 07/16/21 budesonide 6 mg PO QAM 02/04/20 07/16/21 calcitriol 0.5 mcg PO DAILY 02/04/20 07/16/21 fluticasone propionate [Flonase 1 spray INTRANASAL BID 02/04/20 07/16/21 Allergy Relief] montelukast 10 mg PO DAILY 02/04/20 07/16/21 nortriptyline 10 mg PO HS PRN 02/04/20 07/16/21 omeprazole 20 mg PO BID 02/04/20 07/16/21 carvedilol 25 mg PO BID 04/22/20 07/16/21 multivitamin 1 tablet PO DAILY 04/22/20 07/16/21 oxybutynin chloride 5 mg PO HS 04/22/20 07/16/21 fluticasone propion-salmeterol 2 inh INHALATION BID 08/06/20 07/16/21 [Advair Diskus] donepezil 5 mg PO DAILY 07/16/21 07/16/21 Allergies Allergy/AdvReac Type Severity Reaction Status Date / Time No Known Allergies Allergy Verified 07/16/21 12:12 Review of Systems Review of Systems: All systems reviewed & are unremarkable except as noted in HPI and below Musculoskeletal: Musculoskeletal: Reports back pain PMFSH Past Medical History Medical History Asthma Back pain of lumbosacral region with sciatica Basal cell carcinoma (BCC) GERD (gastroesophageal reflux disease) Hyperlipidemia Hypertension Prostate CA Social History Social History Smoking status: Never smoker Alcohol intake: never Substance use: never Gender identity (if verbalized by the patient): Male Spiritual care concerns: No Exam Const: General: no acute distress and alert Nutritional Appearance: well nourished Orientation/consciousness: patient oriented x3 HENMT: Head: normal to inspection Ears: external ears normal and TM's normal bilaterally General nose exam: Normal external nose present and Normal nares present Mouth: Yes lip normal and Yes moist mucous membranes Eyes: Conjunctivae: conjunctivae normal Pupils: Equal, round and reactive pupils present EOM: EOMs intact bilaterally Neck: Neck: normal visual inspection and no lymphadenopathy Chest: Chest palpation & inspection: normal inspection of the chest Resp: Effort & Inspection: normal respiratory effort Auscultation: clear to auscultation bilaterally Cardio: Rate: regular rate Rhythm: regular rhythm GI: GI Palp: Yes Soft to palpation and No Tenderness to palpation present (GI) Auscultation: normal bowel sounds : General: Yes bladder normal to palpation and Yes no CVA tenderness Male General Exam: Yes normal external exam Testes: Testes normal Back/Spine/Pelvis: Back: no CVA tenderness Other: Minimally tender paraspinal lumbosacral back and Skin: General skin exam: normal color Neuro: General: patient oriented x3, moves all extremities, no meningeal signs, no focal motor deficits and CN's II-XI intact bilaterally Extrem: General: normal to inspection and no pedal edema Psych: Appearance: grossly normal and well kempt Mental Status: mental status grossly normal Affect: normal affect Thought content: Yes Normal thought content present Course Course Emergency Course: Pt had less pain in the ED. Reevaluation(s) Reevaluation #1: VSS Date: 07/16/21 Time: 12:34 V
[2021-07-16 13:44] VITALS: BP 110/72; PULSE 66; RESP 16; O2SAT 94
== END 2021-07-16 13:45 | disposition home or self-care (01) ==
PROVIDERS: Emergency Provider Emergency Medicine; PCP Internal Medicine
DX: M54.16 Radiculopathy, lumbar region (principal); M54.30 Sciatica, unspecified side
CPT/HCPCS: 36415; 72131; 72192; 80053; 85025; 96372; 99283; 99284; J1885

== ENCOUNTER 2021-07-16 16:45 | Outpatient (CLI) | payer MEDICARE, OTHER, SELFPAY ==
[2021-07-16 17:01] LABS: Hematocrit 38.2 % (37.0-46.0); Mean Corpuscular Hemoglobin 33.9 pg (27.0-31.0); Mean Corpuscular Volume 99.5 fL (78.0-102.0); Mean Platelet Volume 8.5 fl (8.7-11.0); Platelet Count Result 119 K/mm3 (150-420); Red Blood Count 3.84 M/mm3 (4.70-6.10); White Blood Count 5.4 K/mm3 (4.8-10.8)
[2021-07-16 17:25] LABS: Band Neutrophils Percent 1 % (0-6); Basophils Percent Manual 0 % (0-1); Eosinophils Percent Manual 0 % (1-6); Lymphocytes Absolute Manual 0.48 K/mm3 (1.1-4.5); Lymphocytes Percent Manual 9 % (18-44); Monocytes Absolute Manual 0.81 K/mm3 (0.1-0.90); Monocytes Percent Manual 15 % (3-9); Neutrophils Percent Manual 75 % (46-73); Platelet Estimate Adequate (Adequate); Total Cells Counted 100
[2021-07-16 17:26] LABS: Alanine Aminotransferase 36 U/L (16-63); Albumin Level 3.6 g/dL (3.4-5.0); Alkaline Phosphatase 45 U/L (46-116); Anion Gap 7 mmol/L (8-16); Aspartate Amino Transferase 26 U/L (15-37); Bilirubin,Total 0.5 mg/dL (0.00-1.00); Blood Urea Nitrogen 30 mg/dL (7-18); Calcium 8.9 mg/dL (8.5-10.1); Carbon Dioxide 31 mmol/L (21-32); Chloride 102 mmol/L (98-108); Estimated Glomerular Filt Rate 20; Glucose 110 mg/dL (70-99); Osmolality Calculated 297 mOsm/kg (285-295); Potassium 4.4 mmol/L (3.5-5.1); Sodium 140 mmol/L (136-145); Total Protein 6.3 g/dL (6.4-8.2)
== END 2021-07-16 16:46 | disposition home or self-care (01) ==
LOC: CHSLAB 16:48
PROVIDERS: PCP Internal Medicine; Visit Provider Internal Medicine
DX: R10.9 Unspecified abdominal pain (principal)
CPT/HCPCS: 36415; 80053; 85025

== ENCOUNTER 2021-07-20 16:04 | Outpatient (CLI) | payer MEDICARE, SELFPAY ==
[2021-07-20 17:53] LABS: Influenza Control Valid (Valid); SARS-CoV-2 Ag Positive (Negative)
== END 2021-07-20 16:05 | disposition home or self-care (01) ==
LOC: CHSLAB 16:12
PROVIDERS: PCP Internal Medicine; Visit Provider Internal Medicine
DX: U07.1 COVID-19 (principal); J06.9 Acute upper respiratory infection, unspecified
CPT/HCPCS: 87426; 87804; 87880; C9803

== ENCOUNTER 2021-09-14 10:30 | Outpatient (CLI) | payer MEDICARE, OTHER, SELFPAY ==
--- NOTE | ~2021-09-14 | XR_ITS ---
XR elbow LT min 3V 09/14/2021 10:45 Indication: Left elbow pain after injury Procedure: 4 views left elbow Comparison: No prior studies for comparison. Findings: There is moderate dorsal soft tissue swelling. No fracture, subluxation or dislocation. The re is anatomic alignment. No foreign bodies. No significant joint effusion. Impression: 1: No acute fracture. Reviewed, dictated and finalized at location B. Impression: 1: No acute fracture.
== END 2021-09-14 10:31 | disposition home or self-care (01) ==
LOC: CHSIMG 10:32
PROVIDERS: PCP Internal Medicine; Visit Provider Internal Medicine
DX: S59.902A Unspecified injury of left elbow, initial encounter (principal)
CPT/HCPCS: 73080

== ENCOUNTER 2021-09-30 13:35 | Outpatient (CLI) | payer MEDICARE, OTHER, SELFPAY ==
--- NOTE | ~2021-09-30 | US_ITS ---
EXAMINATION: US pelvic limited DATE: 09/30/2021 15:06 INDICATION: Incomplete bladder emptying. TECHNIQUE: Multiple grayscale and Doppler ultrasound images of the pelvis were obtained. COMPARISON: CT pelvis 07/16/2021 FINDINGS: The prevoid bladder volume is 111 mm. The postvoid bladder volume is 15 mL. IMPRESSION: 1. Normal postvoid bladder volume. Reviewed, dictated and finalized at location A.
== END 2021-09-30 13:36 | disposition home or self-care (01) ==
LOC: CHSIMG 13:37
PROVIDERS: PCP Internal Medicine; Visit Provider Internal Medicine
DX: N40.1 Benign prostatic hyperplasia with lower urinary tract symptoms (principal)
CPT/HCPCS: 76857

== ENCOUNTER 2021-12-23 17:54 | Emergency (ER) | payer MEDICARE, OTHER, SELFPAY ==
--- NOTE | ~2021-12-23 | XR_ITS ---
EXAMINATION: XR abdomen obstructive series DATE: 12/23/2021 18:58 INDICATION: Constipation TECHNIQUE: Upright and supine views of the abdomen were obtained. COMPARISON: 06/22/2009 FINDINGS: There is a surgical anastomosis in the right abdomen. The bowel gas pattern is normal. Ther e are no dilated loops of bowel. Changes of pelvic lymph node dissection are noted. There is moderate osteoarthritis of the hips. The lung bases are clear. IMPRESSION: 1. Unremarkable abdominal radiographs. Reviewed, dictated and finalized at location F.
[2021-12-23 18:20] VITALS: BP 175/95; PULSE 60; RESP 16; TEMP 36.9; O2SAT 97
[2021-12-23] MEDS: MAGNESIUM CITRATE 300 ML BTL PO (19:13)
--- NOTE | 2021-12-23 19:27 | ED.GENADULT ---
HPI - General Adult General Chief complaint: Abdominal Pain Stated complaint: constipation Source: patient and family Mode of arrival: ambulatory Limitations: no limitations History of Present Illness HPI narrative: this is a 86-year-old gentleman that presents with constipation over the last 2 days with no fever chills no chest pain no shortness of breath no abdominal pain no hematuria hematochezia no nausea or vomiting. Onset (ago): day(s) Severity: mild Related Data Home Medications Medication Instructions Recorded Confirmed albuterol sulfate 90 mcg/actuation 1 inh inhalation BID PRN Dyspnea 02/04/20 12/23/21 aerosol inhaler budesonide 3 mg 6 mg PO QAM 02/04/20 12/23/21 capsule,delayed,extended release calcitriol 0.5 mcg capsule 0.5 mcg PO DAILY 02/04/20 12/23/21 fluticasone propionate 50 1 spray intranasal BID 02/04/20 12/23/21 mcg/actuation nasal spray,suspension (Flonase Allergy Relief) montelukast 10 mg tablet 10 mg PO DAILY 02/04/20 12/23/21 nortriptyline 10 mg capsule 10 mg PO HS PRN Sleep 02/04/20 12/23/21 omeprazole 20 mg capsule,delayed 20 mg PO BID 02/04/20 12/23/21 release carvedilol 25 mg tablet 25 mg PO BID 04/22/20 12/23/21 multivitamin 1 tablet PO DAILY 04/22/20 12/23/21 oxybutynin chloride 5 mg tablet 5 mg PO HS 04/22/20 12/23/21 fluticasone 500 mcg-salmeterol 50 2 inh inhalation BID 08/06/20 12/23/21 mcg/dose blistr powdr for inhalation (Advair Diskus) donepezil 5 mg tablet 5 mg PO DAILY 07/16/21 12/23/21 Allergies Allergy/AdvReac Type Severity Reaction Status Date / Time No Known Allergies Allergy Verified 12/23/21 18:48 Review of Systems Review of Systems: All systems reviewed & are unremarkable except as noted in HPI and below PMFSH Past Medical History Medical History Asthma Back pain of lumbosacral region with sciatica Basal cell carcinoma (BCC) GERD (gastroesophageal reflux disease) Hyperlipidemia Hypertension Prostate CA Social History Social History Smoking status: Never smoker Alcohol intake: never Substance use: never Gender identity (if verbalized by the patient): Male Spiritual care concerns: No Exam Const: General: healthy appearing and no acute distress Limitations: no limitations HENMT: Head: normal to inspection Eyes: Conjunctivae: conjunctivae normal EOM: EOMs intact bilaterally Neck: Neck: normal visual inspection, no lymphadenopathy and no meningeal signs Chest: Chest palpation & inspection: normal inspection of the chest Resp: Effort & Inspection: normal respiratory effort Auscultation: clear to auscultation bilaterally Cardio: Rate: regular rate Rhythm: regular rhythm GI: GI Palp: Yes Soft to palpation Auscultation: normal bowel sounds Urinary Catheter: Urinary Catheter: patent and draining Back/Spine/Pelvis: Back: no CVA tenderness Skin: General skin exam: normal color Rashes: no rashes Neuro: General: patient oriented x3 and moves all extremities Extrem: General: normal to inspection Psych: Mental Status: mental status grossly normal Affect: normal affect Course Course Emergency Course: Abdominal series reviewed with patient and family patient received magnesium citrate and advised follow-up with his primary care physician. Vital Signs Vital signs: Vital Signs Temperature 36.9 C 12/23/21 18:20 Pulse Rate 60 12/23/21 18:20 Respiratory Rate 16 12/23/21 18:20 Blood Pressure 175/95 H 12/23/21 18:20 Pulse Oximetry 97 12/23/21 18:20 Oxygen Delivery Room Air 12/23/21 18:20 Temperature 36.9 C 12/23/21 18:20 Pulse Rate 60 12/23/21 18:20 Respiratory Rate 16 12/23/21 18:20 Blood Pressure 175/95 H 12/23/21 18:20 Pulse Oximetry 97 12/23/21 18:20 Oxygen Delivery Room Air 12/23/21 18:20 Medical Decision Making Vital Signs Vital Signs: Vital
[2021-12-23 19:32] VITALS: BP 165/71; PULSE 65; RESP 18; TEMP 36.6; O2SAT 99
== END 2021-12-23 19:40 | disposition home or self-care (01) ==
PROVIDERS: Emergency Provider Emergency Medicine; PCP Internal Medicine
DX: K59.00 Constipation, unspecified (principal); K21.9 Gastro-esophageal reflux disease without esophagitis; E78.5 Hyperlipidemia, unspecified; I10 Essential (primary) hypertension; Z85.46 Personal history of malignant neoplasm of prostate
CPT/HCPCS: 74019; 99283; A9270

== ENCOUNTER 2022-03-03 09:01 | Outpatient (CLI) | payer MEDICARE, OTHER, SELFPAY ==
--- NOTE | ~2022-03-03 | MR_ITS ---
EXAMINATION: MR lumbar spine wo con DATE: 03/03/2022 09:55 INDICATION: Back pain TECHNIQUE: Magnetic resonance imaging (MRI) of the lumbar spine was performed without intravenous con trast. Sequences included sagittal T2-weighted FSE, sagittal T2-weighted FS FSE, sagittal T1-weighted FSE, and axial T2-weighted FSE. COMPARISON: Lumbar spine CT dated 07/16/2021, lumbar spine MR dated 03/07/[address] abdomen and pelvis dated 09/06/2019 FINDINGS: 6 degrees lumbar levocurvature. 1-2 mm retrolisthesis L1 on L2, 2 mm retrolisthesis L2 on L3, 4 mm an terolisthesis L4 on L5 and 2-3 mm retrolisthesis L5 on S1. Minimal likely physiologic anterior wedgin g at T12 and L1. Remaining lumbar vertebral body heights are normal. Heterogeneous red and yellow mar row signal. Small low signal intensity lesions at L3 and L5 corresponding to unchanged sclerotic bone islands as seen on prior CT. No pathologic marrow replacing process. Schmorl's node along the superi or endplate of T11. Moderate to severe disc height loss at L5-S1. Mild disc height loss at L4-L5. Dis c desiccation with minimal disc height loss at T11-T12 and L1-L2 through L3-L4. The conus medullaris terminates at L1-L2. There is normal signal in the caudal spinal cord. A few large left renal cysts m easuring up to 5 cm. Paravertebral soft tissues are otherwise unremarkable. The following disc levels are specifically discussed: T12-L1: Disc is mildly bulging. There is mild bilateral facet joint osteoarthritis. There is no neura l foraminal stenosis. There is no central canal stenosis. L1-L2: Annular fissure with minimal disc bulge. There is mild bilateral facet joint osteoarthritis. T here is minimal bilateral neural foraminal stenosis. There is no central canal stenosis. L2-L3: Annular fissure with minimal disc bulge. There is mild right and minimal left facet joint oste oarthritis. There is mild bilateral neural foraminal stenosis. There is no central canal stenosis. L3-L4: Disc is mildly bulging greatest at the bilateral foraminal zones There is mild bilateral facet joint osteoarthritis. There is mild left and mild to moderate right neural foraminal stenosis. There is no central canal stenosis. L4-L5: Disc is bulging with annular fissure and central disc extrusion with disc material extending u p to 7 mm cephalad to the inferior endplate of L4. There is hypertrophy of the ligamentum flavum. The re is severe bilateral facet joint osteoarthritis. There is moderate right and mild left neural zoila inal stenosis. There is mild to moderate central canal stenosis along with narrowing of the left and right lateral recesses. L5-S1: Disc is bulging with annular fissure. There is moderate bilateral facet joint osteoarthritis. There is moderate left and mild right neural foraminal stenosis. There is no central canal stenosis. IMPRESSION: 1. No significant change in moderate to severe lumbosacral and cephalad mild to moderate lumbar spond ylosis. Reviewed, dictated and finalized at location A. IMPRESSION: 1. No significant change in moderate to severe lumbosacral and cephalad mild to moderate lumbar spondylosis.
== END 2022-03-03 09:02 | disposition home or self-care (01) ==
PROVIDERS: PCP Internal Medicine; Visit Provider Neurological Surgery
DX: M47.25 Other spondylosis with radiculopathy, thoracolumbar region (principal); M48.05 Spinal stenosis, thoracolumbar region; M47.27 Other spondylosis with radiculopathy, lumbosacral region; M48.07 Spinal stenosis, lumbosacral region
CPT/HCPCS: 72148

== ENCOUNTER 2022-03-21 15:53 | Outpatient (CLI) | payer MEDICARE, OTHER, SELFPAY ==
--- NOTE | ~2022-03-21 | XR_ITS ---
XR lumbar spine min 4V 03/21/2022 16:36 Indication: Low back pain Procedure: 5 views lumbar spine Comparison: 08/03/2018 Findings: There is grade 1 degenerative spondylolisthesis at L4-5. There is disc narrowing at L5-S1. There is atherosclerosis of the aorta. There is facet hypertrophy at L3-4 through L5-S1. No acute fra cture or traumatic malalignment. Sacral foramen are symmetric. Impression: 1: Moderate lumbar spondylosis. Reviewed, dictated and finalized at location A. Impression: 1: Moderate lumbar spondylosis.
== END 2022-03-21 15:54 | disposition home or self-care (01) ==
PROVIDERS: PCP Internal Medicine; Visit Provider Neurological Surgery
DX: M47.26 Other spondylosis with radiculopathy, lumbar region (principal)
CPT/HCPCS: 72110

== ENCOUNTER 2022-06-10 10:25 | Outpatient (CLI) | payer MEDICARE, OTHER, SELFPAY ==
[2022-06-10 10:43] VITALS: BP 132/73; PULSE 80; RESP 14; TEMP 37; O2SAT 97
[2022-06-10 10:46] VITALS: BMI 25.9
[2022-06-10] MEDS: DENOSUMAB 60 MG/ML SYRINGE SUB-Q (10:56)
--- NOTE | 2022-06-10 11:00 | PC.NURSE ---
Patient here for his every 6 month Prolia injection. Education given. No concerns voiced. Prolia injection administered. See MAR. Tolerated well. Safe exit of hospital.
== END 2022-06-10 10:26 | disposition home or self-care (01) ==
LOC: CHSTREATRM 10:30
PROVIDERS: PCP Internal Medicine; Visit Provider Internal Medicine
DX: M81.0 Age-related osteoporosis without current pathological fracture (principal)
CPT/HCPCS: 96372; J0897

== ENCOUNTER 2022-10-20 14:45 | Outpatient (RCR) | payer MEDICARE, OTHER, SELFPAY ==
[2022-10-20 14:39] VITALS: BP_SYST 167
--- NOTE | 2022-10-20 15:45 | PTOPEVAL1 ---
Assessment and note entered by Mercedes Macedo DPT Evaluation Information Diagnosis R shoulder pain Onset 10/19/22 Subjective Information Patient reports 1 weeks ago he mowed grass with his zero turn law mower and later that evening R shoulder pain started. He reports he went to the MD who thought it may be shingles due to a samll red spot but that went away and did not progress. Patient reports pain us behind the shoulder and into the arm pit area and reports it feels like muscle pain. He reports most difficuly with lifting objects and reaching behind him. He also reports some numbness in his pinky finger but denies any neck pain. He reports no prior shoulder pain. Reported Pain Level Pain Score 5: Self Report Assessment PT Clinical Summary Patient is a 87 year old male who presents to PT with R shoulder pain. Patient demonstrates decreased AROM of the R shoulder, decreased R lat length and tenderness at the lat and posterior R RTC limiting his ability to lift objects for house hold tasks and reach for dressing and hygiene. He would benefit from skilled PT to address impairments and return to PLOF. Plan of Care Interventions Electrical Stimulation,Hot Pack/Cold Pack,Manual Therapy,Neuro Re-education,Patient/Caregiver Educati,Therapeutic Activities,Therapeutic Exercise PT Services Indicated Yes Treatment Frequency and 2x weekly for 12 visits Duration These treatments will address the objective and functional deficits as defined above. The patient will be advanced safely and appropriately in order for the patient to progress towards his/her prior level of function. Additional exercises will be introduced and as well as a comprehensive home exercise program upon discharge, if needed, ?to ensure carryover of functional gains achieved in the clinic. This treatment plan has been reviewed and agreement upon by the patient.
--- NOTE | 2022-12-15 14:39 | PTOPDC ---
Assessment and note entered by JT File, PT Evaluation Information Assessment Status Discharge Diagnosis R shoulder pain Onset 10/19/22 Subjective Information patient reports he feels good this date. he reports he has even mowed grass and had no pain in the R shoulder. Reported Pain Level Pain Score 0: Self Report Assessment PT Clinical Summary mr. jacobson presents to skilled PT for his 12th skilled therapy visit. he presents today with having met 50% of goals for skilled PT. however, patient is appropriate for DC from skilled PT due to having no pain, and returning to all prior level functional activities. he will continue with HEP independent at home. Plan of Care PT Services Indicated Yes
--- NOTE | 2022-12-21 21:06 | PTOPPROG ---
Assessment and note entered by JT File, PT Evaluation Information Assessment Status Discharge Diagnosis R shoulder pain Onset 10/19/22 Subjective Information patient reports he feels good this date. he reports he has even mowed grass and had no pain in the R shoulder. Assessment PT Clinical Summary mr. jacobson presents to skilled PT for his 12th skilled therapy visit. he presents today with having met 50% of goals for skilled PT. however, patient is appropriate for DC from skilled PT due to having no pain, and returning to all prior level functional activities. he will continue with HEP independent at home. Plan of Care Interventions Electrical Stimulation,Hot Pack/Cold Pack,Manual Therapy,Neuro Re-education,Patient/Caregiver Educati,Therapeutic Activities,Therapeutic Exercise PT Services Indicated Yes Treatment Frequency and DC to independent HEP Duration These treatments will address the objective and functional deficits as defined above. The patient will be advanced safely and appropriately in order for the patient to progress towards his/her prior level of function. Additional exercises will be introduced and as well as a comprehensive home exercise program upon discharge, if needed, ?to ensure carryover of functional gains achieved in the clinic. This treatment plan has been reviewed and agreement upon by the patient.
== END 2022-12-15 13:34 | disposition home or self-care (01) ==
LOC: CHSPT 14:45
PROVIDERS: PCP Internal Medicine; Visit Provider Internal Medicine
DX: M54.2 Cervicalgia (principal); M54.6 Pain in thoracic spine; M25.511 Pain in right shoulder
CPT/HCPCS: 97014; 97110; 97140; 97161; G0283

== ENCOUNTER 2022-11-14 16:45 | Outpatient (CLI) | payer MEDICARE, OTHER, SELFPAY ==
--- NOTE | ~2022-11-14 | XR_ITS ---
EXAMINATION: XR chest 2V DATE: 11/14/2022 17:59 INDICATION: Acute cough with shortness of breath TECHNIQUE: frontal and lateral views of the chest were obtained. COMPARISON: Chest radiograph dated 06/11/2021 FINDINGS: The lungs remain clear with no focal airspace opacities, pulmonary edema, pleural effusion or pneumot horax. Heart size is normal with bilateral paracardial fat pads. Tortuous thoracic aorta. Moderate th oracic spondylosis. IMPRESSION: 1. No acute cardiopulmonary disease. Reviewed, dictated and finalized at location A.
== END 2022-11-14 16:46 | disposition home or self-care (01) ==
LOC: CHSIMG 16:48
PROVIDERS: PCP Internal Medicine; Visit Provider Internal Medicine
DX: R05.9 Cough, unspecified (principal)
CPT/HCPCS: 71046

== ENCOUNTER 2022-12-07 13:50 | Outpatient (CLI) | payer MEDICARE, OTHER, SELFPAY ==
[2022-12-07 14:06] LABS: Basophils Absolute Auto 0.01 K/mm3 (0.00-0.10); Basophils Percent Auto 0.2 % (0.0-1.0); Eosinophils Absolute Auto 0.06 K/mm3 (0.02-0.50); Eosinophils Percent Auto 0.9 % (1.0-6.0); Hematocrit 37.3 % (37.0-46.0); Hemoglobin 12.4 g/dL (12.4-15.3); Immature Granulocyte Absolute 0.04 K/mm3 (0.00-0.00); Immature Granulocyte Percent A 0.6 % (0.0-0.0); Lymphocytes Absolute Auto 0.84 K/mm3 (1.10-4.50); Lymphocytes Percent Auto 12.9 % (18.0-42.0); Mean Corpuscular HGB Conc 33.2 g/dL (32.0-36.0); Mean Corpuscular Hemoglobin 32.9 pg (27.0-31.0); Mean Corpuscular Volume 98.9 fL (78.0-102.0); Monocytes Absolute Auto 0.62 K/mm3 (0.10-0.90); Monocytes Percent Auto 9.5 % (2.0-11.0); Neutrophils Percent Auto 75.9 % (50.0-70.0); Platelet Count Result 127 K/mm3 (150-420); Red Blood Count 3.77 M/mm3 (4.70-6.10); Red Cell Distribution Width 14.1 % (11.6-14.4); White Blood Count 6.5 K/mm3 (4.8-10.8)
[2022-12-07 15:13] LABS: Alanine Aminotransferase 20 U/L (16-63); Albumin Level 3.4 g/dL (3.4-5.0); Alkaline Phosphatase 40 U/L (46-116); Anion Gap 8 mmol/L (8-16); Aspartate Amino Transferase 17 U/L (15-37); Bilirubin,Total 0.4 mg/dL (0.00-1.00); Blood Urea Nitrogen 38 mg/dL (7-18); Calcium 8.5 mg/dL (8.5-10.1); Carbon Dioxide 28 mmol/L (21-32); Chloride 104 mmol/L (98-108); Estimated Glomerular Filt Rate 18; Ferritin 115 ng/mL (26-388); Glucose 119 mg/dL (70-99); Iron 118 ug/dL (65-175); Magnesium 2.3 mg/dL (1.8-2.4); Osmolality Calculated 300 mOsm/kg (285-295); Potassium 3.7 mmol/L (3.5-5.1); Sodium 140 mmol/L (136-145); Total Protein 5.7 g/dL (6.4-8.2); Vitamin B12 868 pg/mL (193-986)
[2022-12-13 18:53] LABS: Parathyroid Intact 61 pg/mL (14-64)
== END 2022-12-07 13:51 | disposition home or self-care (01) ==
LOC: CHSLAB 13:53
PROVIDERS: PCP Internal Medicine; Visit Provider Internal Medicine
DX: K58.1 Irritable bowel syndrome with constipation (principal); N18.4 Chronic kidney disease, stage 4 (severe); D64.9 Anemia, unspecified; G62.9 Polyneuropathy, unspecified
CPT/HCPCS: 36415; 80053; 82607; 82728; 83540; 83735; 83970; 85025

== ENCOUNTER 2022-12-22 10:00 | Outpatient (CLI) | payer MEDICARE, OTHER, SELFPAY ==
[2022-12-22 10:10] VITALS: BMI 23.5
[2022-12-22] MEDS: DENOSUMAB 60 MG/ML SYRINGE SUB-Q (10:19)
[2022-12-22 10:20] VITALS: BP 132/75; PULSE 72; RESP 14; TEMP 36.4; O2SAT 98
--- NOTE | 2022-12-22 10:22 | PC.NURSE ---
Patient here for q 6 month Prolia injection. Education given. No concerns voiced. Patient reports never has had problem with the shot. Prolia injection administered. SEE MAR. Tolerated well. Safe exit of hospital per self/ambulatory.
== END 2022-12-22 10:01 | disposition home or self-care (01) ==
LOC: CHSTREATRM 10:03
PROVIDERS: PCP Internal Medicine; Visit Provider Internal Medicine
DX: M81.0 Age-related osteoporosis without current pathological fracture (principal)
CPT/HCPCS: 96372; J0897

== ENCOUNTER 2023-01-09 16:24 | Outpatient (CLI) | payer MEDICARE, OTHER, SELFPAY ==
--- NOTE | ~2023-01-09 | XR_ITS ---
EXAMINATION: XR knee RT 3V DATE: 01/09/2023 16:57 INDICATION: Right knee pain and swelling. TECHNIQUE: 3 views of right knee were obtained. COMPARISON: None. FINDINGS: Bone alignment is normal. No fracture. There is severe osteoarthritis of lateral compartmen t, moderate osteoarthritis of medial compartment, and mild osteoarthritis of patellofemoral compartme nt. There is a small knee joint effusion. There is anterior knee soft tissue swelling. IMPRESSION: 1. Severe right knee osteoarthritis. 2. Small right knee joint effusion. Reviewed, dictated and finalized at location E.
== END 2023-01-09 16:25 | disposition home or self-care (01) ==
LOC: CHSIMG 16:28
PROVIDERS: PCP Internal Medicine; Visit Provider Internal Medicine
DX: M25.561 Pain in right knee (principal); M17.11 Unilateral primary osteoarthritis, right knee; M25.461 Effusion, right knee
CPT/HCPCS: 73562

== ENCOUNTER 2023-01-25 13:26 | Outpatient (RCR) | payer MEDICARE, OTHER, SELFPAY ==
--- NOTE | 2023-01-25 14:34 | PTOPEVAL1 ---
Assessment and note entered by JT File, PT Evaluation Information Assessment Status Evaluation Diagnosis lumbar radiculopathy Onset 01/24/23 Subjective Information patient reports he is having pain from the butt down to the heel on the L side. he reports he has had issues with sciatic pain in the past on this leg. he reports he did take a gabapentin this morning. he reports he pulled the hamstrings recently on the R leg as well. he reports he had a bruise of the back of the R leg for a few days. he reports he has increased radicular symptoms in the L leg from cutting grass. he reports he tried to cut the whole lawn in one bout which flared up his pain. he reports he has incresed symptoms with increased walking. he reports currently it feels like a deep ache/soreness. Reported Pain Level Pain Score 5: Self Report Assessment PT Clinical Summary mr. jacobson is an 87 yo man who presents to skilled PT services for evaluation and treatment of lower back and L LE pain. he presents today with signs and symptoms indicative of a L sciactica/lumbar radiculopathy. he displays poor posture, mm strength, gait mechanics, flexibility, and is tender to palpation. he would benefit from continued skilled PT to address his objective/ functional deficits and progress towards a return to his prior level functional activity performance /quality of life. Plan of Care Interventions Electrical Stimulation,Gait Training,Hot Pack/Cold Pack,Manual Therapy,Neuro Re-education,Patient/ Caregiver Educati,Therapeutic Activities, Therapeutic Exercise PT Services Indicated Yes Treatment Frequency and 3x weekly for 9 visits Duration These treatments will address the objective and functional deficits as defined above. The patient will be advanced safely and appropriately in order for the patient to progress towards his/her prior level of function. Additional exercises will be introduced and as well as a comprehensive home exercise program upon discharge, if needed, ?to ensure carryover of functional gains achieved in the clinic. This treatment plan has been reviewed and agreement upon by the patient.
--- NOTE | 2023-01-25 14:34 | OPREHPOC ---
Outpatient Therapy Plan of Care This is a Multidisciplinary Plan of Care that may contain components documented by all disciplines (PT, OT, and ST.) PT Problem 1 PT Problem #1 Knowledge Deficit PT Goal 1 Goal 1. independent and compliant with HEP to improve tolerance for continued skilled PT and exercises Target Visit 4 PT Problem 2 PT Problem #2 Pain PT Goal 1 Goal 1. decrease pain at worst to 4/10 or less in the lower back and L LE to improve quality of life. Target Visit 9 PT Problem 3 PT Problem #3 Impaired Strength PT Goal 1 Goal 1. 4+/5 bilateral hip strength 2. 5/5 L knee strength 3. TA in supine hooklying with bilateral marches and no loss of PPT Target Visit 9 PT Problem 4 PT Problem #4 Impaired Functional Mobil PT Goal 1 Goal 1. patient to stand for 1 hour or more without symptoms 2. patient to walk around stores without needing cart or rest 3. oswestry to display 30% or less functional deficits 4. improve ambulation mechanics, and complete 6 minute walk test for 800ft or more Target Visit 9 PT Problem 5 PT Problem #5 Impaired Range of Motion PT Goal 1 Goal 1. improve arom lumbar flexion to mid shields without knee flexion 2. improve bilateral hamstrings flexibility to 20 degrees or less per the 90/90 test Target Visit 9
--- NOTE | 2023-02-15 15:36 | OPREHPOC ---
Outpatient Therapy Plan of Care This is a Multidisciplinary Plan of Care that may contain components documented by all disciplines (PT, OT, and ST.) PT Problem 1 PT Problem #1 Knowledge Deficit PT Goal 1 Goal 1. independent and compliant with HEP to improve tolerance for continued skilled PT and exercises Target Visit 4 Progress Met PT Problem 2 PT Problem #2 Pain PT Goal 1 Goal 1. decrease pain at worst to 4/10 or less in the lower back and L LE to improve quality of life. Target Visit 9 Comment continue to address PT Problem 3 PT Problem #3 Impaired Strength PT Goal 1 Goal 1. 4+/5 bilateral hip strength 2. 5/5 L knee strength 3. TA in supine hooklying with bilateral marches and no loss of PPT Target Visit 9 Progress Partially Met Comment improved strength since initial visit but has not yet met goals PT Problem 4 PT Problem #4 Impaired Functional Mobil PT Goal 1 Goal 1. patient to stand for 1 hour or more without symptoms 2. patient to walk around stores without needing cart or rest 3. oswestry to display 30% or less functional deficits 4. improve ambulation mechanics, and complete 6 minute walk test for 800ft or more Target Visit 9 Progress Partially Met Comment oswestry score improved by 16% but has not yet met goals PT Problem 5 PT Problem #5 Impaired Range of Motion PT Goal 1 Goal 1. improve arom lumbar flexion to mid shields without knee flexion 2. improve bilateral hamstrings flexibility to 20 degrees or less per the 90/90 test Target Visit 9 Comment continue to address
--- NOTE | 2023-02-15 15:36 | PTOPREEVAL ---
Assessment and note entered by Mercedes Macedo DPT Evaluation Information Assessment Status Re-evaluation Diagnosis lumbar radiculopathy Onset 01/24/23 Subjective Information Patient reports he feels sluggish and notes pain in the lower back as 5/10 currently. He states that his R hamstring has been bothering him for the last few days. Patient reports continued difficulty/pain with walking, balance, and heavy activities such as moving furniture. He notes yard work still gives him some challenge to perform, and typically increases his pain levels for a few days following. He states his pain levels are highest in the mornings and at night, noting it has reached a 9/10 during the past week. Reported Pain Level Pain Score 5: Self Report Assessment PT Clinical Summary Mr. Richter has attended 9 sessions of skilled PT to address lumbar radiculopathy. BP 138/83 mmHg, HR 72 bpm, SpO2 97%. He demonstrated progress towards LE strength, trunk ROM, and flexibility goals but continues to demonstrate limitations in these measures. He currently has 40% functional decline as assessed by the Oswestry, decreasing from 56% initially. He continues to report difficulty with activities such as yard work, walking, and standing balance. Appropriate to continue skilled PT to address reamining goals, pain levels, and functional activities to improve patient's ability to perform tasks in the home and community. Plan of Care Interventions Electrical Stimulation,Gait Training,Hot Pack/Cold Pack,Manual Therapy,Neuro Re-education,Patient/ Caregiver Educati,Therapeutic Activities, Therapeutic Exercise PT Services Indicated Yes Treatment Frequency and continue POC for 2x/week for 8 additional visits Duration These treatments will address the objective and functional deficits as defined above. The patient will be advanced safely and appropriately in order for the patient to progress towards his/her prior level of function. Additional exercises will be introduced and as well as a comprehensive home exercise program upon discharge, if needed, ?to ensure carryover of functional gains achieved in the clinic. This treatment plan has been reviewed and agreement upon by the patient.
--- NOTE | 2023-02-22 07:29 | PCPTNOTE ---
patient called and rescheduled appt on 02/21/23.
--- NOTE | 2023-03-01 17:15 | PCPTNOTE ---
patient cancelled his physical therapy appointment this date for an unknown reason. GENET
--- NOTE | 2023-03-08 15:37 | PCPTNOTE ---
patient was a no call/no show for PT today. JTF
--- NOTE | 2023-04-05 14:21 | OPREHPOC ---
Outpatient Therapy Plan of Care This is a Multidisciplinary Plan of Care that may contain components documented by all disciplines (PT, OT, and ST.) PT Problem 1 PT Problem #1 Knowledge Deficit PT Goal 1 Goal 1. independent and compliant with HEP to improve tolerance for continued skilled PT and exercises Target Visit 4 Progress Met PT Problem 2 PT Problem #2 Pain PT Goal 1 Goal 1. decrease pain at worst to 4/10 or less in the lower back and L LE to improve quality of life. Target Visit 9 Progress Partially Met Comment . PT Problem 3 PT Problem #3 Impaired Strength PT Goal 1 Goal 1. 4+/5 bilateral hip strength 2. 5/5 L knee strength 3. TA in supine hooklying with bilateral marches and no loss of PPT Target Visit 9 Progress Partially Met Comment . PT Problem 4 PT Problem #4 Impaired Functional Mobil PT Goal 1 Goal 1. patient to stand for 1 hour or more without symptoms 2. patient to walk around stores without needing cart or rest 3. oswestry to display 30% or less functional deficits 4. improve ambulation mechanics, and complete 6 minute walk test for 800ft or more Target Visit 9 Progress Not Met Comment . PT Problem 5 PT Problem #5 Impaired Range of Motion PT Goal 1 Goal 1. improve arom lumbar flexion to mid shields without knee flexion 2. improve bilateral hamstrings flexibility to 20 degrees or less per the 90/90 test Target Visit 9 Progress Not Met Comment .
--- NOTE | 2023-04-05 14:21 | PTOPDC ---
Assessment and note entered by JT File, PT Evaluation Information Assessment Status Re-evaluation Diagnosis lumbar radiculopathy Onset 01/24/23 Subjective Information patient reports his lower back is feeling pretty good, but reports his R knee has been bothering him a lot lately. he reports he is going to have this evaluated today. he reports the back has been a little increased in pain due to issues with walking because of the R knee. Reported Pain Level Pain Score 4,9: Self Report Assessment PT Clinical Summary mr. jacobson presents to skilled PT services for his 17th visit for lumbar radiculopathy. he presents today with minimal symptoms from the lower back, but is limited in standing, walking, and functional activities due to issues with his knee. he has made progress towards goals listed below, but will DC skilled PT today, and follow up with MD regarding the R knee symptoms. Plan of Care PT Services Indicated Yes
== END 2023-04-05 16:27 | disposition home or self-care (01) ==
LOC: CHSPT 13:26
PROVIDERS: PCP Internal Medicine; Visit Provider Internal Medicine
DX: M54.16 Radiculopathy, lumbar region (principal)
CPT/HCPCS: 97014; 97110; 97140; 97150; 97161; G0283

== ENCOUNTER 2023-04-05 14:23 | Outpatient (CLI) | payer MEDICARE, OTHER, SELFPAY ==
--- NOTE | ~2023-04-05 | XR_ITS ---
XR knee RT min 4V DATE: 04/05/2023 14:41 INDICATION: Lateral knee pain after a fall TECHNIQUE: 4 views COMPARISON: 01/09/2023 right knee FINDINGS: Osteopenia. Suprapatellar knee joint effusion is suggested. There is moderate tricompartment osteoarthritis. No fracture or dislocation, periosteal reaction or bone destruction is detected. No radiopaque intra- articular loose body is evident. Prominent femoral, popliteal and trifurcation artery calcifications. IMPRESSION: Osteopenia Suprapatellar knee joint effusion Moderate tricompartment osteoarthritis Reviewed, dictated and finalized at location B.
== END 2023-04-05 14:24 | disposition home or self-care (01) ==
LOC: CHSIMG 14:26
PROVIDERS: PCP Internal Medicine; Visit Provider Internal Medicine
DX: M25.561 Pain in right knee (principal); M85.88 Other specified disorders of bone density and structure, other site; M25.461 Effusion, right knee; M17.11 Unilateral primary osteoarthritis, right knee
CPT/HCPCS: 73564

== ENCOUNTER 2023-04-09 19:00 | Emergency (ER) | payer MEDICARE, OTHER, SELFPAY ==
--- NOTE | ~2023-04-09 | XR_ITS ---
EXAM: XR abdomen obstructive series DATE: 04/09/2023 19:25 HISTORY: constipation x3d . COMPARISON: 12/23/2021. FINDINGS: Senescent change in the lungs. Bibasilar streaky atelectasis/scar. Normal bowel gas patter n. No organomegaly. No abnormal abdominal calcification. Lumbar degenerative disc disease. Mild bilat eral hip osteoarthritic arthritis. Surgical clips project over the lower pelvis. Right lateral abdomi nal anastomosis. IMPRESSION: No radiographic evidence of obstruction or ileus. Reviewed, dictated and finalized at location K.
--- NOTE | ~2023-04-09 | CT_ITS ---
EXAMINATION: CT abdomen pelvis wo con DATE: 04/09/2023 20:23 INDICATION: constipation x3 DAYS. DISTENDED. HX OF CROHN'S, ABD SURGERY TECHNIQUE: Computed tomography (CT) of the abdomen and pelvis was performed without intravenous contr ast. Automated exposure control and iterative reconstruction technique were employed. The dose-length product was 397.89 mGy-cm. COMPARISON: MR abdomen 10/14/2020; CT pelvis 07/16/2021. FINDINGS: Lower thorax: Cardiomegaly. Bibasilar scar. Liver: Normal. Biliary/Gallbladder: Gallbladder is normal. No bile duct dilation. Pancreas: No mass or duct dilation. Spleen: Granulomatous calcification. Adrenals:No mass. Kidneys: Multiple bilateral simple cysts. Bilateral indeterminate density renal masses. No hydronephr osis or obstructing calcification. GI tract: No small or large bowel dilation. Appendix not visualized. Uncomplicated anastomosis at the ileocecal valve Diverticulosis without diverticulitis. Mesentery/Peritoneum: No ascites, mass, or free air. Retroperitoneum: No mass. Atherosclerotic abdominal aortic and/or arterial calcifications. Pelvis: Pelvic organs are within normal limits. Multiple surgical clips in the pelvis Soft Tissues: Soft tissues and body wall unremarkable. Bones: No acute osseous finding. IMPRESSION: No acute abdominopelvic process detected. Indeterminate renal masses, recommend nonemergent but timely outpatient MR without and with contrast for renal mass evaluation, given that prior abdominal MRIs are available for comparison. Reviewed, dictated and finalized at [facility]. IMPRESSION: No acute abdominopelvic process detected. Indeterminate renal masses, recommend nonemergent but timely outpatient MR with out and with contrast for renal mass evaluation, given that prior abdominal MRI s are available for comparison.
[2023-04-09 19:00] VITALS: BP 157/100; PULSE 74; RESP 16; TEMP 37.5; O2SAT 96
--- NOTE | 2023-04-09 19:09 | ED.ABDPAIN ---
HPI - Abdominal Pain General Chief Complaint: Abdominal Pain Stated Complaint: constipation Time Seen by Provider: 04/09/23 19:05 Source: patient Mode of arrival: ambulatory Limitations: no limitations History of Present Illness HPI narrative: patient is a 87-year-old male with distended abdomen secondary to constipation for 3 days. He has no definite pain but feels distended and full in the abdomen. This has been a problem in the past. MD elicited complaint: other ( Abdomen fullness) Pertinent past history: constipation Onset (ago): day(s) (3) Pain Consistency: constant ( fullness) Location: diffuse Severity: moderate Pain scale (0-10): 5 Quality: fullness Radiation: none Migration to: no migration Exacerbating factors: nothing Relieving factors: nothing Associated symptoms: denies other symptoms Related Data Home Medications Medication Instructions Recorded Confirmed albuterol sulfate 90 mcg/actuation 1 inh inhalation BID PRN Dyspnea 02/04/20 02/22/23 aerosol inhaler budesonide 3 mg 6 mg PO QAM 02/04/20 02/22/23 capsule,delayed,extended release calcitriol 0.5 mcg capsule 0.5 mcg PO DAILY 02/04/20 02/22/23 fluticasone propionate 50 1 spray intranasal BID 02/04/20 02/22/23 mcg/actuation nasal spray,suspension (Flonase Allergy Relief) montelukast 10 mg tablet 10 mg PO DAILY 02/04/20 02/22/23 nortriptyline 10 mg capsule 10 mg PO HS PRN Sleep 02/04/20 02/22/23 omeprazole 20 mg capsule,delayed 20 mg PO BID 02/04/20 02/22/23 release multivitamin 1 tablet PO DAILY 04/22/20 02/22/23 amlodipine 10 mg tablet 10 mg PO DAILY 10/12/22 02/22/23 donepezil 5 mg tablet 10 mg PO DAILY 10/12/22 02/22/23 Allergies Allergy/AdvReac Type Severity Reaction Status Date / Time No Known Allergies Allergy Verified 04/09/23 19:12 Review of Systems Review of Systems: All systems reviewed & are unremarkable except as noted in HPI and below Constitutional: Constitutional: Reports no additional constitutional complaints Eyes: Eyes: Reports no additional eye complaints ENT: Reports system reviewed and no additional complaints, except as documented Cardiovascular: Cardiovascular: Reports no additional cardiovascular complaints Respiratory: Respiratory: Reports no additional respiratory complaints Gastrointestinal: Gastrointestinal: Reports no additional gastrointestinal complaints Genitourinary: Genitourinary: Reports no additional male genitourinary complaints Musculoskeletal: Musculoskeletal: Reports no additional musculoskeletal complaints Integumentary/Breasts: Skin/Breast: Reports system reviewed and no additional complaints, except as docu Neurologic: Reports system reviewed and no additional complaints, except as documented Psychiatric: Psychiatric: Reports no additional psychiatric complaints Endocrine: Endocrine: Reports no additional endocrine complaints Hematologic/Lymphatic: Hematologic/Lymphatic: Reports no additional hematologic/lymphatic complaints Allergic/Immunologic: Allergic/Immunologic: Reports no additional allergic/immunologic complaints PMFSH Past Medical History Medical History Asthma Back pain of lumbosacral region with sciatica Basal cell carcinoma (BCC) GERD (gastroesophageal reflux disease) History of intestine removal Hyperlipidemia Hypertension Prostate CA Surgical History Surgical History H/O toe surgery History of prostate surgery Family History Family History Other Diabetes mellitus Heart disease Hypertension Social History Social History Smoking status: Never smoker Alcohol intake: never Substance use: never Lack of Transportation: No Current Housing: I Have Housing Concerned About Future Housing: No Difficulty Paying Gas/Elec
[2023-04-09 20:58] VITALS: BP 160/90; PULSE 60; RESP 16; TEMP 36.7; O2SAT 97
== END 2023-04-09 21:00 | disposition home or self-care (01) ==
PROVIDERS: Emergency Provider Emergency Medicine; PCP Internal Medicine
DX: K59.00 Constipation, unspecified (principal); J45.909 Unspecified asthma, uncomplicated; I10 Essential (primary) hypertension; E78.5 Hyperlipidemia, unspecified; K21.9 Gastro-esophageal reflux disease without esophagitis; Z79.51 Long term (current) use of inhaled steroids
CPT/HCPCS: 74019; 74176; 99284

== ENCOUNTER 2023-05-04 12:11 | Outpatient (CLI) | payer MEDICARE, OTHER, SELFPAY ==
--- NOTE | ~2023-05-04 | MR_ITS ---
EXAMINATION: MR abdomen wo/w con INDICATION: Indeterminate left kidney mass TECHNIQUE: Coronal SSFSE ARC, WATER:coronal LAVA-FLEX, Coronal 2D FIESTA FatSat, Axial SSFSE BH ARC, Axial 3D DualEcho BH, Axial SSFSE-IR, Axial DWI b=500, Axial 2D FIESTA FatSat, pre and dynamic postco ntrast Axial LAVA ARC, postcontrast Coronal In and Opposed phase LAVA FLEX COMPARISON: 10/14/2020; CT, 04/09/2023 CONTRAST: Multihance, 14 cc FINDINGS: Cardiomegaly is noted. The liver, spleen, gallbladder, and adrenal glands are normal. There is a 12 mm cystic lesion in the body of pancreas previously measured 6 mm. A second stable 6 mm cyst ic lesion is noted in the pancreatic body. Multiple simple cysts are noted in the kidneys. The larges t measures 5.4 cm on the left. There is a 10 mm exophytic lesion of the right mid kidney with interme diate T1 and T2 signal intensity, consistent with a proteinaceous cyst. There is a 2.9 cm mildly T1 h ypointense, T2 hypointense mass of the left kidney upper pole which demonstrates enhancement after co ntrast administration and slow interval increase in size since the comparison MRI. There are no patho logically enlarged abdominal lymph nodes. No dilated loops of bowel are evident. IMPRESSION: 1. Findings suggestive of slow growing neoplasm, or less likely hemorrhagic cysts, of the left kidney upper pole. 2. Cystic lesions of the pancreatic body, one of which demonstrate slight increase in size. The diffe rential diagnosis includes pseudocyst, intraductal papillary mucinous neoplasm (IPMN), mucinous cysti c neoplasm (MCN), and the less common serous cystadenoma and neuroendocrine tumor. Correlate for hist ory of pancreatitis. Follow-up pancreas protocol MRI in 12 months is recommended. Reviewed, dictated and finalized at location A. IMPRESSION: 1. Findings suggestive of slow growing neoplasm, or less likely hemorrhagic cys ts, of the left kidney upper pole. 2. Cystic lesions of the pancreatic body, one of which demonstrate slight incre ase in size. The differential diagnosis includes pseudocyst, intraductal papill thang mucinous neoplasm (IPMN), mucinous cystic neoplasm (MCN), and the less comm on serous cystadenoma and neuroendocrine tumor. Correlate for history of pancre atitis. Follow-up pancreas protocol MRI in 12 months is recommended.
== END 2023-05-04 12:12 | disposition home or self-care (01) ==
PROVIDERS: PCP Internal Medicine; Referring Provider Internal Medicine Nephrology; Visit Provider Urology
DX: D41.02 Neoplasm of uncertain behavior of left kidney (principal); K86.2 Cyst of pancreas
CPT/HCPCS: 74183; A9577

== ENCOUNTER 2023-06-08 10:31 | Outpatient (CLI) | payer MEDICARE, OTHER, SELFPAY ==
--- NOTE | ~2023-06-08 | MR_ITS ---
MRI of the right knee Clinical history: Pain Technique: Coronal proton density and proton density-weighted images, sagittal proton-density and T2 fat-sat images, and axial proton-density fat-saturated images were acquired. Findings: Anterior and posterior cruciate ligament are intact. Medial collateral ligament and the lat eral collateral ligament complex are intact. Popliteus tendon is intact. Anterior horn and body lateral meniscus are essentially completely macerated absent, with complex tea ring of the posterior horn. No definite medial meniscal tear seen. There is diffuse grade IV chondromalacia throughout the lateral compartment. There is extensive moder ate to high-grade chondromalacia of the medial femoral condyle. There is diffuse high-grade chondroma lacia patella. There is mild chondromalacia of the femoral trochlea. Small to moderate tricompartment al osteophyte are present. There are mild areas of subchondral reactive marrow edema of the distal fe mur. Extensor mechanism is intact. Large joint effusion present. No Levy's cyst. Impression: Extensive complex tearing of the lateral meniscus, especially anterior horn and body segment, which a re essentially completely macerated and absent. Severe tricompartmental osteoarthritis, as detailed above. Large joint effusion. Reviewed, dictated and finalized at location . [employer] Impression: Extensive complex tearing of the lateral meniscus, especially anterior horn and body segment, which are essentially completely macerated and absent. Severe tricompartmental osteoarthritis, as detailed above. Large joint effusion.
== END 2023-06-08 10:32 | disposition home or self-care (01) ==
PROVIDERS: Absent Provider Anesthesiology Pain Medicine; PCP Internal Medicine; Visit Provider Internal Medicine
DX: M25.561 Pain in right knee (principal); S83.271A Complex tear of lateral meniscus, current injury, right knee, initial encounter; M17.11 Unilateral primary osteoarthritis, right knee; M25.461 Effusion, right knee
CPT/HCPCS: 73721

== ENCOUNTER 2023-07-21 09:33 | Outpatient (CLI) | payer MEDICARE, OTHER, SELFPAY ==
[2023-07-21 09:50] VITALS: BP 139/80; PULSE 72; RESP 14; TEMP 36.6; O2SAT 97; BMI 21.7
[2023-07-21] MEDS: DENOSUMAB 60 MG/ML SYRINGE SUB-Q (09:52)
--- NOTE | 2023-07-21 10:36 | PC.NURSE ---
Patient here for q 6 month Prolia injection. Education given. No concerns voiced. Injection administered. See MAR. Tolerated well. Safe exit of hospital. Patient will be call in 6 months to scheduled next one.
== END 2023-07-21 09:34 | disposition home or self-care (01) ==
LOC: CHSTREATRM 09:36
PROVIDERS: PCP Internal Medicine; Visit Provider Internal Medicine
DX: M81.0 Age-related osteoporosis without current pathological fracture (principal)
CPT/HCPCS: 96372; J0897

== ENCOUNTER 2023-12-05 14:03 | Outpatient (CLI) | payer MEDICARE, OTHER, SELFPAY ==
--- NOTE | ~2023-12-05 | XR_ITS ---
EXAMINATION: XR chest 2V Exam Date/Time: 12/05/2023 14:20 CDT HISTORY: Cough, wheezing, fever Comparison: 11/14/2022. RESULT: Lines, tubes, and devices: None. Lungs and pleura: Clear. Cardiomediastinal silhouette: Stable. Other: No acute osseous or upper abdominal finding. IMPRESSION: No acute cardiopulmonary process. Reviewed, dictated and finalized at location K.
[2023-12-05 14:21] LABS: Basophils Absolute Auto 0.02 K/mm3 (0.00-0.10); Basophils Percent Auto 0.3 % (0.0-1.0); Eosinophils Absolute Auto 0.06 K/mm3 (0.02-0.50); Hematocrit 34.8 % (37.0-46.0); Hemoglobin 11.7 g/dL (12.4-15.3); Immature Granulocyte Absolute 0.04 K/mm3 (0.00-0.00); Immature Granulocyte Percent A 0.6 % (0.0-0.0); Lymphocytes Absolute Auto 1.13 K/mm3 (1.10-4.50); Lymphocytes Percent Auto 17.9 % (18.0-42.0); Mean Corpuscular HGB Conc 33.6 g/dL (32-36); Mean Corpuscular Hemoglobin 31.9 pg (27.0-31.0); Mean Corpuscular Volume 94.8 fL (78.0-102.0); Mean Platelet Volume 8.7 fl (8.7-11.0); Monocytes Absolute Auto 0.48 K/mm3 (0.10-0.90); Monocytes Percent Auto 7.6 % (2.0-11.0); Neutrophils Absolute Auto 4.57 K/mm3 (1.70-7.20); Neutrophils Percent Auto 72.6 % (50.0-70.0); Platelet Count Result 184 K/mm3 (150-420); Red Blood Count 3.67 M/mm3 (4.70-6.10); Red Cell Distribution Width 14.1 % (11.6-14.4); White Blood Count 6.3 K/mm3 (4.8-10.8)
[2023-12-05 14:56] LABS: SARS-CoV-2 RNA PCR Negative (Negative)
[2023-12-05 14:57] LABS: Influenza A QL RT-PCR Negative (Negative); Influenza B QL RT-PCR Negative (Negative); RSV RNA, RT-PCR Negative (Negative); Strep Group A RT-PCR NOT DETECTED (Negative)
== END 2023-12-05 14:04 | disposition home or self-care (01) ==
LOC: CHSLAB 14:05
PROVIDERS: PCP Internal Medicine; Visit Provider Internal Medicine
DX: R05.9 Cough, unspecified (principal); R06.2 Wheezing
CPT/HCPCS: 36415; 71046; 85025; 87637; 87651

== ENCOUNTER 2024-01-05 16:42 | Outpatient (CLI) | payer MEDICARE, OTHER, SELFPAY ==
--- NOTE | ~2024-01-05 | XR_ITS ---
EXAMINATION: XR chest 2V DATE: 01/05/2024 17:05 INDICATION: Productive cough. Wheezing. TECHNIQUE: Frontal and lateral views of the chest were obtained. COMPARISON: Chest 2 views 12/05/2023 FINDINGS: There is mild scarring at the lung apices. No pleural effusion or pneumothorax. The heart s ize is normal. IMPRESSION: 1. Stable mild scarring at the lung apices. Reviewed, dictated and finalized at location A.
[2024-01-05 17:01] LABS: Hematocrit 34.1 % (37.0-46.0); Hemoglobin 11.6 g/dL (12.4-15.3); Mean Corpuscular Hemoglobin 32.2 pg (27.0-31.0); Mean Corpuscular Volume 94.7 fL (78.0-102.0); Mean Platelet Volume 8.6 fl (8.7-11.0); Platelet Count Result 160 K/mm3 (150-420); Red Cell Distribution Width 14.2 % (11.6-14.4); White Blood Count 4.6 K/mm3 (4.8-10.8)
[2024-01-05 17:20] LABS: Alanine Aminotransferase 28 U/L (16-63); Albumin Level 3.4 g/dL (3.4-5.0); Alkaline Phosphatase 43 U/L (46-116); Anion Gap 11 mmol/L (4-12); Aspartate Amino Transferase 24 U/L (15-37); Bilirubin,Total 0.3 mg/dL (0.00-1.00); Blood Urea Nitrogen 30 mg/dL (7-18); Calcium 8.8 mg/dL (8.5-10.1); Carbon Dioxide 25 mmol/L (21-32); Chloride 104 mmol/L (98-108); Estimated Glomerular Filt Rate 19; Glucose 103 mg/dL (70-99); NT Pro B Type Natriuretic Pept 651 pg/mL (0-450); Osmolality Calculated 296 mOsm/kg (285-295); Potassium 3.9 mmol/L (3.5-5.1); Sodium 140 mmol/L (136-145); Total Protein 6.4 g/dL (6.4-8.2)
[2024-01-05 17:26] LABS: Strep Group A RT-PCR NOT DETECTED (Negative)
[2024-01-05 17:33] LABS: SARS-CoV-2 RNA PCR Negative (Negative)
[2024-01-05 17:35] LABS: Influenza A QL RT-PCR Negative (Negative); Influenza B QL RT-PCR Negative (Negative); RSV RNA, RT-PCR Negative (Negative)
== END 2024-01-05 16:43 | disposition home or self-care (01) ==
LOC: CHSLAB 16:44
PROVIDERS: PCP Internal Medicine; Visit Provider Internal Medicine
DX: R05.9 Cough, unspecified (principal); R91.8 Other nonspecific abnormal finding of lung field; R06.2 Wheezing
CPT/HCPCS: 36415; 71046; 80053; 83880; 85027; 87637; 87651

== ENCOUNTER 2024-02-01 10:39 | Outpatient (CLI) | payer MEDICARE, OTHER, SELFPAY ==
[2024-02-01] MEDS: DENOSUMAB 60 MG/ML SYRINGE SUB-Q (10:55)
[2024-02-01 10:59] VITALS: BP 160/90; PULSE 78; RESP 14; TEMP 36.4; O2SAT 98; BMI 22.8
[2024-02-01 11:29] VITALS: BP 149/86
--- NOTE | 2024-02-01 11:30 | PC.NURSE ---
Patient here every 6 month Prolia injection. Education given. No concerns voiced. Injection administered. SEE MAR. Tolerated well. B/P retaking and down some. Safe exit of hospital per ambulatory.
== END 2024-02-01 10:40 | disposition home or self-care (01) ==
PROVIDERS: PCP Internal Medicine; Visit Provider Internal Medicine
DX: M81.0 Age-related osteoporosis without current pathological fracture (principal)
CPT/HCPCS: 96372; J0897

== ENCOUNTER 2024-03-21 13:51 | Outpatient (RCR) | payer MEDICARE, OTHER, SELFPAY ==
--- NOTE | 2024-03-21 15:13 | OPREHPOC ---
Outpatient Therapy Plan of Care This is a Multidisciplinary Plan of Care that may contain components documented by all disciplines (PT, OT, and ST.) PT Problem 1 PT Problem #1 Knowledge Deficit PT Goal 1 Goal / Goal Update The patient will be independent in a home exercise program. Target Visit 4 PT Problem 2 PT Problem #2 Pain PT Goal 1 Goal / Goal Update The patient will report no greater than 3/10 low back and left LE pain with walking for 10 minutes. Target Visit 12 PT Problem 3 PT Problem #3 Impaired Functional Mobil PT Goal 1 Goal / Goal Update 1. The patient will demonstrate 30% or less self perceived disability per the Back Index questionnaire. 2. The patient will demonstrate the ability to lift 10# from waist to shoulder with proper body mechanics. PT Problem 4 PT Problem #4 Impaired Flexibility PT Goal 1 Goal / Goal Update The patient will improve hamstring flexibility to -40 or less degrees. Target Visit 12
--- NOTE | 2024-03-21 15:14 | PTOPEVAL1 ---
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 He also reports he has stage 4 kidney failure. He does not have to get dialysis. He reports arthritis in the lower back as well. He has been getting injections in his back at pain management and that was helping but the last 2 injections only gave relief for 2-3 weeks. He has constant pain down the back of his left leg to the knee and occasionally goes to the heel. He is limited with standing and walking leading to deficits in ability to participate in community events, grocery shop, and perform household tasks. Reported Pain Level Pain Score 5: Self Report Assessment PT Clinical Summary Miguel A Richter presents with chronic low back and left sciatic pain. He has difficulty with prolonged standing and walking which is exacerbated by having bone on bone deformity of his right knee. He objectively demonstrates decreased and painful lumbar AROM, decreased core strength, decreased hip girdle strength, impaired gait, and decreased L > R hamstring flexibility. He will benefit from skilled PT to address these limitations. Plan of Care Interventions Electrical Stimulation,Hot Pack/Cold Pack,Manual Therapy,Neuro Re-education,Patient/Caregiver Educati,Therapeutic Activities,Therapeutic Exercise PT Services Indicated Yes Treatment Frequency and 2 times a week for 12 visits Duration These treatments will address the objective and functional deficits as defined above. The patient will be advanced safely and appropriately in order for the patient to progress towards his/her prior level of function. Additional exercises will be introduced and as well as a comprehensive home exercise program upon discharge, if needed, ?to ensure carryover of functional gains achieved in the clinic. This treatment plan has been reviewed and agreement upon by the patient.
--- NOTE | 2024-04-15 13:22 | PCPTNOTE ---
Patient called & cancelled scheduled appointment this date.
--- NOTE | 2024-04-24 06:27 | OPREHPOC ---
Outpatient Therapy Plan of Care This is a Multidisciplinary Plan of Care that may contain components documented by all disciplines (PT, OT, and ST.) PT Problem 1 PT Problem #1 Knowledge Deficit PT Goal 1 Goal / Goal Update The patient will be independent in a home exercise program. Target Visit 4 Progress Met PT Problem 2 PT Problem #2 Pain PT Goal 1 Goal / Goal Update The patient will report no greater than 3/10 low back and left LE pain with walking for 10 minutes. Target Visit 12 Progress Not Met PT Problem 3 PT Problem #3 Impaired Functional Mobil PT Goal 1 Goal / Goal Update 1. The patient will demonstrate 30% or less self perceived disability per the Back Index questionnaire. 2. The patient will demonstrate the ability to lift 10# from waist to shoulder with proper body mechanics. 3. The patient will ambulate 800ft or more in 6 minute walk test without rest or pain greater than 3/10. Progress Not Met PT Problem 4 PT Problem #4 Impaired Flexibility PT Goal 1 Goal / Goal Update The patient will improve hamstring flexibility to -40 or less degrees. Target Visit 12 Progress Not Met
--- NOTE | 2024-04-24 06:27 | PTOPPROGNS ---
Assessment and note entered by JT File, PT Evaluation Information Assessment Status Progress ICD-10 Condition Codes (PT) M54.16 Subjective Information patient reports he continues to have sciatica pain in the L LE, and pain in the R knee. he reports it is still difficult to work any significant distance without resting due to increased pain in both areas. Assessment PT Clinical Summary mr. jacobson presents to skilled PT for his 10th skilled PT visit. he continues to report significant pain levels, and displays limitations in functional activities such as squatting and walking. he has met only his HEP goal thus far. continued skilled PT is indicated to improve patients objective/functional deficits to achieve goals and return to his prior level functional activity performance/quality of life. Plan of Care Interventions Electrical Stimulation,Hot Pack/Cold Pack,Manual Therapy,Neuro Re-education,Patient/Caregiver Educati,Therapeutic Activities,Therapeutic Exercise PT Services Indicated Yes Treatment Frequency and continue per initial evaluation POC Duration These treatments will address the objective and functional deficits as defined above. The patient will be advanced safely and appropriately in order for the patient to progress towards his/her prior level of function. Additional exercises will be introduced and as well as a comprehensive home exercise program upon discharge, if needed, ?to ensure carryover of functional gains achieved in the clinic. This treatment plan has been reviewed and agreement upon by the patient.
--- NOTE | 2024-04-25 15:54 | PTOPDC ---
Assessment and note entered by Mckay Patel Evaluation Information Assessment Status Discharge ICD-10 Condition Codes (PT) M54.16 Onset 03/19/24 Subjective Information Pt. states that pain continues in the right knee, especially with standing activities. He reports no much seems to alleviate the knee pain. He reports that his back is better since beginning therapy, but is still present. He states that at this time he is more limited by his knee pain than his back pain. Reported Pain Level Pain Score 6: Self Report Assessment PT Clinical Summary Mr. Richter has attended a total of 12 treatment sessions. He demonstrates improvement in charity with ambulation, l.e. strength, flexibility and trunk mobility. He continues to report pain despite these improvements. Encourage pt. to continue with exercise to maintain functional improvements. Plan of Care PT Services Indicated No
== END 2024-04-25 14:30 | disposition home or self-care (01) ==
LOC: CHSPT 13:51
PROVIDERS: Visit Provider Nurse Practitioner Family
DX: M54.16 Radiculopathy, lumbar region (principal)
CPT/HCPCS: 97014; 97110; 97161; 97530; G0283

== ENCOUNTER 2024-05-20 15:07 | Outpatient (RCR) | payer MEDICARE, OTHER, SELFPAY ==
--- NOTE | 2024-05-20 17:42 | PTOPEVAL1 ---
Assessment and note entered by Mckay Patel Evaluation Information Assessment Status Evaluation ICD-10 Condition Codes (PT) M54.16,M25.561 Onset 05/13/24 Subjective Information Pt. reports that he began to develop sciatic pain about 1 week ago. He describes most pain into the left buttock. He states that pain is increased with long periods of sitting and long periods of standing. He reports that pain affects his ability to lay flat. He states that he can relieve his pain laying on his side. He reports that he is using a cane with walking due to left buttock pain and right knee pain. He states that his right knee hinders his ability to walk as well , and the right knee is very arthritic. He states that he can only walk for about 5 minutes due to pain. He reports that his goal for therapy is to relieve his back and left buttock pain. Reported Pain Level Pain Score 5,7: Self Report Assessment PT Clinical Summary Pt. is an 88 year old male who enters the clinic with lumbar radiculopathy and right knee pain. He presents with impaired gait, impaired balance, generalized l.e. weakness, impaired trunk mobility and impaired flexibility. Continued skilled PT is indicated in order to improve these areas to allow the pt. to be able to stand for longer duration with IADL's and reduce pain. Plan of Care Interventions Electrical Stimulation,Gait Training,Hot Pack/Cold Pack,Manual Therapy,Mechanical Traction,Neuro Re- education,Patient/Caregiver Educati,Therapeutic Activities,Therapeutic Exercise PT Services Indicated Yes Treatment Frequency and 2x/week x 10 visits Duration These treatments will address the objective and functional deficits as defined above. The patient will be advanced safely and appropriately in order for the patient to progress towards his/her prior level of function. Additional exercises will be introduced and as well as a comprehensive home exercise program upon discharge, if needed, ?to ensure carryover of functional gains achieved in the clinic. This treatment plan has been reviewed and agreement upon by the patient.
--- NOTE | 2024-05-20 17:42 | OPREHPOC ---
Outpatient Therapy Plan of Care This is a Multidisciplinary Plan of Care that may contain components documented by all disciplines (PT, OT, and ST.) PT Problem 1 PT Problem #1 Knowledge Deficit PT Goal 1 Goal / Goal Update Pt. will be independent with a HEP addressing trunk and knee mobility. Target Visit 2 PT Problem 2 PT Problem #2 Impaired Balance PT Goal 1 Goal / Goal Update Pt. will improve his Tinetti score to 20 or greater indicating low fall risk Target Visit 10 PT Problem 3 PT Problem #3 Pain PT Goal 1 Goal / Goal Update Pt. will reduce low back and buttock pain to 2/10 at worst with long periods of standing. Target Visit 10 PT Problem 4 PT Problem #4 Impaired Functional Mobil PT Goal 1 Goal / Goal Update Pt. will be able to ambulate without an AD for duration of 10 minutes to complete community activities. Pt. will be able to reach to the floor to lift a small object safely without handhold Target Visit 10
--- NOTE | 2024-06-28 14:46 | OPREHPOC ---
Outpatient Therapy Plan of Care This is a Multidisciplinary Plan of Care that may contain components documented by all disciplines (PT, OT, and ST.) PT Problem 1 PT Problem #1 Knowledge Deficit PT Goal 1 Goal / Goal Update Pt. will be independent with a HEP addressing trunk and knee mobility. Target Visit 2 Progress Met PT Problem 2 PT Problem #2 Impaired Balance PT Goal 1 Goal / Goal Update Pt. will improve his Tinetti score to 20 or greater indicating low fall risk Target Visit 10 Progress Met PT Problem 3 PT Problem #3 Pain PT Goal 1 Goal / Goal Update Pt. will reduce low back and buttock pain to 2/10 at worst with long periods of standing. Target Visit 10 Progress Not Met PT Problem 4 PT Problem #4 Impaired Functional Mobility PT Goal 1 Goal / Goal Update Pt. will be able to ambulate without an AD for duration of 10 minutes to complete community activities. met, but does have increased R knee pain from bone on bone OA. Pt. will be able to reach to the floor to lift a small object safely without handhold. met Target Visit 10 Progress Met
--- NOTE | 2024-06-28 14:47 | PTOPDC ---
Assessment and note entered by JT File, PT Evaluation Information Assessment Status Discharge ICD-10 Condition Codes (PT) Radiculopathy, lumbar region M54.16,Pain in right knee M25.561 Onset 05/13/24 Subjective Information patient reports he still has pain in the L buttock at all times. he reports the pain is not much different than when he began PT. he reports he does try and do his exercises at home, and they do help some, but nothing lasting. he reports the stim unit and heat is the best help for his pain. Reported Pain Level Pain Score 0,3: Self Report Assessment PT Clinical Summary mr. jacobson presents to skilled PT services for his 10th skilled PT visit. despite having met functional, balance, and HEP goals in therapy, patient reports he has not noticed much change in his pain and symptoms. he continues to have pain in the L buttock at all times, and in the R knee with increased walking and activities. as of this date, he will DC to independent HEP due to a lack of significant change or reduction in symptoms with skilled PT. Plan of Care PT Services Indicated Yes
== END 2024-06-28 17:33 | disposition home or self-care (01) ==
LOC: CHSPT 15:07
PROVIDERS: PCP Internal Medicine; Visit Provider Nurse Practitioner Family
DX: M54.16 Radiculopathy, lumbar region (principal); M25.561 Pain in right knee
CPT/HCPCS: 97014; 97110; 97161; G0283

== ENCOUNTER 2024-06-22 10:21 | Outpatient (CLI) | payer MEDICARE, OTHER, SELFPAY ==
--- NOTE | ~2024-06-22 | MR_ITS ---
EXAMINATION: MR lumbar spine wo con DATE: 06/22/2024 11:16 INDICATION: Low back pain. TECHNIQUE: Magnetic resonance imaging (MRI) of the lumbar spine was performed without intravenous con trast. Sequences included sagittal T2-weighted FSE, sagittal T2-weighted FS FSE, sagittal T1-weighted FSE, and axial T2-weighted FSE. COMPARISON: Lumbar spine MRI 03/03/2022, abdomen MRI 05/04/2023 FINDINGS: There is 4 degrees levocurvature of lumbar spine. There is 5 mm anterolisthesis of L4 on L5 . Vertebral body heights are normal. There is mildly decreased disc height at L4-L5 and severely decr eased disc height at L5-S1. The distal spinal cord signal intensity is normal. The conus medullaris i s at L1. There are cysts in the kidneys measuring up to 5.5 cm on the left. There is a 3.1 cm mass in left kidney. The following disc levels are specifically discussed: L1-L2: There is a central protrusion with annular fissure. There is mild bilateral facet joint osteoa rthritis. There is no neural foraminal stenosis. There is mild central canal stenosis. L2-L3: The disc is bulging and has an annular fissure. There is moderate right and mild left facet eun int osteoarthritis. There is mild bilateral neural foraminal stenosis. There is mild central canal st enosis. L3-L4: The disc is bulging and has an annular fissure. There is moderate bilateral facet joint osteoa rthritis. There is mild bilateral neural foraminal stenosis. There is mild central canal stenosis. L4-L5: The disc is bulging and has an annular fissure. There is severe bilateral facet joint osteoart hritis. There is moderate right and mild left neural foraminal stenosis. There is mild central canal stenosis. L5-S1: The disc is bulging and has an annular fissure. There is severe bilateral facet joint osteoart hritis. There is mild bilateral neural foraminal stenosis. There is mild central canal stenosis. IMPRESSION: 1. Severe lower lumbar spondylosis, stable from 03/03/2022. 2. 3.1 cm mass in the left kidney that enhanced on prior imaging, consistent with renal cell carcinom a. Reviewed, dictated and finalized at location A. [employer] IMPRESSION: 1. Severe lower lumbar spondylosis, stable from 03/03/2022. 2. 3.1 cm mass in the left kidney that enhanced on prior imaging, consistent wi th renal cell carcinoma.
== END 2024-06-22 10:22 | disposition home or self-care (01) ==
LOC: CHSIMG 10:27
PROVIDERS: PCP Internal Medicine; Visit Provider Nurse Practitioner Family
DX: M43.06 Spondylolysis, lumbar region (principal); N28.89 Other specified disorders of kidney and ureter
CPT/HCPCS: 72148

== ENCOUNTER 2024-08-26 09:52 | Outpatient (CLI) | payer MEDICARE, OTHER, SELFPAY ==
[2024-08-26 10:03] VITALS: BP 150/88; PULSE 80; RESP 14; TEMP 36.4; O2SAT 99; BMI 22.8
[2024-08-26] MEDS: DENOSUMAB 60 MG/ML SYRINGE SUB-Q (10:06)
--- NOTE | 2024-08-26 10:16 | PC.NURSE ---
Patient here for Prolia injection. Education given. No concerns voiced. Patient states, I done well with all the rest of these Prolia shots you have given me. Injection administered. SEE MAR/patient care notes. Tolerated well.
--- OUTSIDE RECORDS SUMMARY | 2024-08-26 10:59 | XMS_ITS | Clinical Summary ---
Author Organization [facility] Address [address] [place] [id number] Phone Care Team Providers Care Net Mender Name Role Phone Kia Love MD Primary Care Provider [phone] Allergies No known active allergies Medications Medication Sig Dispensed Refills Start Date End Date Status calcitriol (ROCALTROL) 0.5 MCG capsule Take 0.5 mcg by mouth 1 (one) time each day Active montelukast (SINGULAIR) 10 MG tablet Take 10 mg by mouth every night Active budesonide EC (ENTOCORT EC) 3 MG 24 hr capsule Take 6 mg by mouth 1 (one) time each day in the morning Active omeprazole (PriLOSEC) [address] capsule Take 20 mg by mouth 1 (one) time each day Active nortriptyline (PAMELOR) 10 MG capsule Take 10 mg by mouth every night Active Multiple Vitamin (MULTIVITAMIN) capsule Take 1 capsule by mouth 1 (one) time each day Active cyanocobalamin (VITAMIN B-12) 1000 MCG tablet Take 1,000 mcg by mouth 1 (one) time each day Active albuterol HFA (PROVENTIL HFA;VENTOLIN HFA) 108 (90 Base) MCG/ACT inhaler Inhale 2 puffs every 6 (six) hours if needed Active Polyethyl Glycol-Propyl Glycol 0.4-0.3 % gel Apply to affected eye(s) Active fluticasone (FLONASE) 50 MCG/ACT nasal spray 03/02/2020 Active oxybutynin XL (DITROPAN-XL) 5 MG 24 hr tablet 07/31/2020 Active carvedilol (COREG) 25 MG tablet 08/08/2020 Active amLODIPine (NORVASC) 5 MG tablet Take 5 mg by mouth 1 (one) time each day Active budesonide-formoterol (SYMBICORT) 160-4.5 MCG/ACT inhaler 08/16/2021 Active donepezil (ARICEPT) 10 MG tablet 08/24/2021 Active tiZANidine (ZANAFLEX) 2 MG tablet 08/23/2021 Active Denosumab 60 MG/ML solution prefilled syringe Inject 60 mg under the skin every 6 months Active gabapentin (NEURONTIN) 100 MG capsule Take 100 mg by mouth 4 times daily as needed 02/01/2022 Active Active Problems Problem Noted Date Diagnosed Date Acquired spondylolisthesis 04/08/2022 Lumbar radiculopathy 09/06/2021 Chronic kidney disease, Stage IV (severe) 2019 Immunizations Name Administration Dates Next Due Influenza TIV (IM) 03/17/2022,04/16/2021, 020 Pneumococcal Conjugate 03/03/2018 Social History Tobacco Use Types Packs/Day Years Used Date Smoking Tobacco: Never Smokeless Tobacco: Never Alcohol Use Standard Drinks/Week Comments Not Currently 0 (1 standard drink = 0.6 oz pur e alcohol) Sex and Gender Information Value Date Recorded Sex Assigned at Not on file Gender Identity Not on file Sexual Orientation Not on file Last Filed Vital Signs Vital Sign Reading Time Taken Comments Blood Pressure 118/70 06/06/2022 2:55 PM [employer] Pulse 72 06/06/2022 2:55 PM [employer] Temperature 35.3 C (95.6 F) 06/06/2022 2:55 PM [employer] Respiratory Rate - - Oxygen Saturation - - Inhaled Oxygen Concentration - - Weight 73.5 kg (162 lb) 06/06/2022 2:55 PM [employer] Height 185.4 cm (6' 1 ) 06/06/2022 2:55 PM [employer] Body Mass Index 21.37 06/06/2022 2:55 PM [employer] Plan of Treatment Health Maintenance Due Date Last Done Comments Pneumococcal PPSV23/PCV13 65 + Years / High and Highest Risk (1 of 4 - PCV) 10/01/1941 Influenza Vaccine (#1) 2024 2, 04/16/2021, 04/01/2020 Care Teams Net Mender Relationship Specialty Start Date End Date Kia Love MD PCP - General Internal Medicine 11/12/19
--- OUTSIDE RECORDS SUMMARY | 2024-08-26 10:59 | XMS_ITS | Clinical Summary ---
Author Organization [facility] Address [address] [place] [address] Care Team Providers Care Population Geneticist Name Role Phone Kia Love MD Primary Care Provider [phone] Allergies No known active allergies Medications albuterol sulfate HFA 108 (90 Base) MCG/ACT inhaler Inhale 2 puffs into the lungs every 6 (six) hours as needed. Active budesonide-form oterol 160-4.5 MCG/ACT inhaler 08/16/2021 Act burton amLODIPine 5 MG tablet Take 1 tablet (5 mg total) by mouth. Active omeprazole 20 MG capsule 2 (two) times daily. 08/23/2021 Active montelukast 10 MG tablet Take 1 tablet (10 mg total) by mouth daily. Active nortriptyline 10 MG capsule Take 1 capsule (10 mg total) by mouth as needed. Active Multiple Vitamin (MULTIVITAMIN) capsule Take 1 capsule by mouth. Active vitamin B-12 1000 MCG tablet Take 1 tablet (1,000 mcg total) by mouth. Active fluticasone propionate 50 MCG/ACT nasal spray 1 spray by Each Nostril route daily. 08/11/2021 Active Polyethyl Glycol-Propyl Glycol 0.4-0.3 % Gel Active denosumab 60 MG/ML injection Inject 1 mL (60 mg total) into the skin every 6 (six) months. Active donepezil 10 MG Tab 11/22/2021 Active Senna (SENOKOT) 8.6 MG tablet Take 1 tablet (8.6 mg total) by mouth daily. Active gabapentin (NEURONTIN) 100 MG capsule Take 1 capsule (100 mg total) by mouth 4 (four) times daily as needed. 02/01/2022 Active calcitriol (ROCALTROL) 0.5 MCG capsule Take 1 capsule (0.5 mcg total) by mouth daily. Active budesonide EC (ENTOCORT EC) 3 MG capsule Take 2 capsules (6 mg total) by mouth daily. 08/03/2022 Active Active Problems Problem Noted Date Diagnosed Date Acquired spondylolisthesis of lumbosacral region 04/08/2022 Neural foraminal stenosis of lumbar spine 2021 Lumbar radiculopathy 09/06/2021 Social History Tobacco Use Types Packs/Day Years Used Date Smoking Tobacco: Never Smokeless Tobacco: Never Tobacco Cessation:Counseling Given: Not Answered Alcohol Use Standard Drinks/Week Comments Not Currently 0 (1 standard drink = 0.6 oz pur e alcohol) Sex and Gender Information Value Date Recorded Sex Assigned at Not on file Legal Sex Male 8:54 PM CDT Gender Identity Not on file Sexual Orientation Not on file Last Filed Vital Signs Vital Sign Reading Time Taken Comments Blood Pressure 153/88 12/02/2022 2:45 PM CDT Pulse 73 12/02/2022 2:45 PM CDT Temperature 36.4 C (97.5 F) 12/02/2022 2:45 PM CDT Respiratory Rate 20 12/02/2022 2:45 PM CDT Oxygen Saturation 99% 12/02/2022 2:45 PM CDT Inhaled Oxygen Concentration - - Weight 72.6 kg (160 lb) 01/20/2023 9:38 AM CDT Height 182.9 cm (6') 01/20/2023 9:38 AM CDT Body Mass Index 21.7 01/20/2023 9:38 AM CDT Plan of Treatment Health Maintenance Due Date Last Done Comments Zoster Vaccines (1 of 2) 10/01/1985 Annual Medicare Wellness Visit 10/01/2000 RSV Immunization or 60+ Years (1 - 1-dose 75+ series) 10/01/2010 COVID-19 Vaccine ( season) 2024 01/07/2022, 09/01/2021, 08/28/2020, Additional history exists Influenza Adult (#1) 2024 03/17/2022, 04/16/2021, 03/10/2021, Additional history exists DTaP, Tdap and Td Vaccines (2 - Td or Tdap) 12/19/2024 12/19/2014, 02/21/2008 Pneumococcal Vaccine: 65+ Years Completed 03/03/2018, 12/19/2014, 03/16/2010 Meningococcal B Vaccine Aged Out No l onger eligible based on patient's age to complete this topic Meningococcal Vaccine Aged Out No walter brittany eligible based on patient's age to complete this topic RSV Immunizations Under 20 Months Aged Out No longer eligible based on patient's age to complete this topic Insurance MEDICARE [facility] Advance Directives Documents on File Type Date Recorded Patient Automatic Buffer Expl anation Advance Directives and Living Will 02/28/2022 8:29 AM 08/16/2021 POA FOR HEALTH CARE Care Teams Population Geneticist Relationship Specialty Start Date End Date Kia Love MD [address] [place] [address] PCP - General INTERNAL MEDICINE 09/03/21
== END 2024-08-26 09:53 | disposition home or self-care (01) ==
PROVIDERS: PCP Internal Medicine; Visit Provider Internal Medicine
DX: M81.0 Age-related osteoporosis without current pathological fracture (principal)
CPT/HCPCS: 96372; J0897

== ENCOUNTER 2024-09-06 05:15 | Emergency (ER) | payer MEDICARE, OTHER, SELFPAY ==
[2024-09-06 05:15] VITALS: BP 143/109; PULSE 71; RESP 18; TEMP 36.4; O2SAT 100
--- OUTSIDE RECORDS SUMMARY | 2024-09-06 05:17 | XMS_ITS | Clinical Summary ---
Author Organization [facility] Address [address] [place] [address] Phone Care Team Providers Care Hvac Manager Name Role Phone Kia Love MD Primary Care Provider [phone] Allergies No known active allergies Medications Medication [...] Comments Blood Pressure 118/70 06/06/2022 2:55 PM REFRIGERATION REPAIR SUPERVISOR Pulse 72 06/06/2022 2:55 PM REFRIGERATION REPAIR SUPERVISOR Temperature 35.3 C (95.6 F) 06/06/2022 2:55 PM REFRIGERATION REPAIR SUPERVISOR Respiratory Rate - - Oxygen Saturation - - Inhaled Oxygen Concentration - - Weight 73.5 kg (162 lb) 06/06/2022 2:55 PM REFRIGERATION REPAIR SUPERVISOR Height 185.4 cm (6' 1 ) 06/06/2022 2:55 PM REFRIGERATION REPAIR SUPERVISOR Body Mass Index 21.37 06/06/2022 2:55 PM REFRIGERATION REPAIR SUPERVISOR Plan of Treatment Health Maintenance Due Date Last Done Comments Pneumococcal PPSV23/PCV13 65 + Years / High and Highest Risk (1 of 4 - PCV) 10/01/1941 Influenza Vaccine (#1) 2024 2, 04/16/2021, 04/01/2020 Care Teams Hvac Manager Relationship Specialty Start Date End Date Kia Love MD PCP - General Internal Medicine 11/12/19
--- OUTSIDE RECORDS SUMMARY | 2024-09-06 05:17 | XMS_ITS | Clinical Summary ---
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
--- NOTE | 2024-09-06 05:23 | PC.NURSE ---
ERP aware of blood pressure this morning for this patient. Patient advised by ERP to take home medications once patient returns home.
--- NOTE | 2024-09-06 05:39 | ED.ABDPAIN ---
HPI - Abdominal Pain General Chief Complaint: Abdominal Pain Stated Complaint: abdominal pain Source: patient and family Mode of arrival: ambulatory Limitations: no limitations History of Present Illness HPI narrative: This is a an 88-year-old male with a history of end-stage kidney disease presents with chronic constipation, currently no abdominal pain no nausea vomiting no fever chills no diarrhea patient did have a bowel movement 2 days ago. Patient has history of dementia anxiety. Otherwise appears comfortable with no fever chills no chest pain no shortness of breath. Pertinent past history: constipation Onset (ago): day(s) Pain Consistency: intermittent Severity: mild Related Data Home Medications ?Medication ?Instructions ?Recorded ?Confirmed ?Last Taken ?Type albuterol sulfate 90 mcg/actuation 1 inh inhalation BID PRN Dyspnea 02/04/20 08/26/24 08/13/20 08:00 History aerosol inhaler budesonide 3 mg 6 mg PO QAM 02/04/20 08/26/24 1 Day Ago History capsule,delayed,extended release ~08/12/20 fluticasone propionate 50 1 spray intranasal BID 02/04/20 08/26/24 1 Day Ago History mcg/actuation nasal ~08/12/20 spray,suspension (Flonase Allergy Relief) nortriptyline 10 mg capsule 10 mg PO HS PRN Sleep 02/04/20 08/26/24 1 Day Ago History ~08/12/20 omeprazole 20 mg capsule,delayed 20 mg PO BID 02/04/20 08/26/24 1 Day Ago History release ~08/12/20 multivitamin 1 tablet PO DAILY 04/22/20 08/26/24 3 Days Ago History ~08/10/20 amlodipine 10 mg tablet 10 mg PO DAILY 10/12/22 08/26/24 Unknown History donepezil 5 mg tablet 10 mg PO DAILY 10/12/22 08/26/24 Unknown History acetaminophen 500 mg tablet 500 mg PO Q6H 08/07/24 08/26/24 Unknown History (Tylenol Extra Strength) fluticasone propionate 45 2 puff inhalation BID 08/07/24 08/26/24 Unknown History mcg-salmeterol 21 mcg/actuation HFA inhaler (Advair HFA) mecobalamin (vitamin B12) 500 mcg 500 mcg PO DAILY 08/07/24 08/26/24 Unknown History chewable tablet Allergies Allergy/AdvReac Type Severity Reaction Status Date / Time No Known Allergies Allergy Verified 08/07/24 08:22 Review of Systems Review of Systems: All systems reviewed & are unremarkable except as noted in HPI and below PMFSH Past Medical History Medical History History of intestine removal Back pain of lumbosacral region with sciatica Basal cell carcinoma (BCC) Prostate CA Hyperlipidemia Asthma GERD (gastroesophageal reflux disease) Hypertension Surgical History Surgical History H/O toe surgery History of prostate surgery Family History Family History Other Diabetes mellitus Heart disease Hypertension Social History Social History Smoking status: Never smoker Alcohol intake: never Substance use: never Do You Feel Safe in your Home?: Yes Lack of Transportation: No Current Housing: I Have Housing Concerned About Future Housing: No Difficulty Paying Gas/Electric Bills: No Difficulty Paying for Meds: No Currently Unemployed: No Education: High School Diploma/GED Difficulty w/ Childcare or Family Care: No Living arrangements: with family Gender identity (if verbalized by the patient): Male Spiritual care concerns: No Exam Const: General: healthy appearing, no acute distress and alert Nutritional Appearance: well nourished Orientation/consciousness: patient oriented x3 Limitations: no limitations Resp: Effort & Inspection: normal respiratory effort Auscultation: clear to auscultation bilaterally Cardio: Rate: regular rate Rhythm: regular rhythm GI: GI Palp: Yes Soft to palpation Auscultation: normal bowel sounds : General: Yes bladder normal to palpation Urinary Catheter: Urinary Catheter: patent and draining Back/Spine/Pelvis: Back: no CVA tenderness Skin: General skin exam: normal color Rashes: no rashes Course Course Emergency Course: Patient has a bottle of magnesium citrate at he did not take, and advised patient to take half of when he gets home and the other half in the in afternoon and if symptoms persist to Doctors primary care physician and can always return to the ER. Critical Care Time Critical Care Time Critical Care Time: No Discharge Plan Discharge Clinical Impression: Constipation Qualifiers: Constipation type: unspecified constipation type Qualified Code(s): K59.00 - Constipation, unspecified Patient Disposition: Home, Self-Care Condition: Stable Instructions: Antibiotic Form, Constipation (ED) Additional Instructions: advised patient to take it magnesium citrate and to continue with his Dulcolax and a follow-up with primary care physician if symptoms persist or worsen. Patient Language: Hungarian Prescriptions: No Action donepezil 5 mg tablet 10 mg PO DAILY amlodipine 10 mg tablet 10 mg PO DAILY calcitriol 0.25 mcg capsule 0.25 mcg PO 3XW Qty: 45 3RF Rx Instructions: administer after dialysis on dialysis days lisinopril 5 mg tablet 5 mg PO DAILY Qty: 90 3RF fluticasone propion-salmeterol [Advair HFA] 45-21 mcg/actuation HFA aerosol inhaler 2 puff inhalation BID mecobalamin (vitamin B12) 500 mcg tablet,chewable 500 mcg PO DAILY acetaminophen [Tylenol Extra Strength] 500 mg tablet 500 mg PO Q6H nortriptyline 10 mg capsule 10 mg PO HS PRN (Reason: Sleep) budesonide 3 mg capsule,delayed,extend.release 6 mg PO QAM albuterol sulfate 90 mcg/actuation Hfa Aerosol Inhaler 1 inh INHALATION BID PRN (Reason: Dyspnea) fluticasone propionate [Flonase Allergy Relief] 50 mcg/actuation Danube,Suspension 1 spray INTRANASAL BID omeprazole 20 mg Capsule,Delayed Release(Dr/Ec) 20 mg PO BID multivitamin Tablet 1 tablet PO DAILY Follow-up/Referrals: Kia Love MD [Primary Care Provider] - Time of Disposition: 05:43
== END 2024-09-06 05:51 | disposition home or self-care (01) ==
PROVIDERS: Emergency Provider Emergency Medicine; PCP Internal Medicine
DX: K59.00 Constipation, unspecified (principal); N18.6 End stage renal disease; F03.90 Unspecified dementia, unspecified severity, without behavioral disturbance, psychotic disturbance, mood disturbance, and anxiety; I10 Essential (primary) hypertension; Z85.46 Personal history of malignant neoplasm of prostate
CPT/HCPCS: 99281

== ENCOUNTER 2024-09-30 14:01 | Outpatient (CLI) | payer MEDICARE, OTHER, SELFPAY ==
--- NOTE | 2024-09-30 14:03 | ECG_ITS ---
Test Date: 2024-09-30 14:24:25 Measurements Intervals Cummings Rate: 60 P: 68 TN: 190 QRS: 57 QRSD: 93 T: 67 QT: 438 QTc: 438 Interpretive Statements SINUS RHYTHM WITH MARKED SINUS ARRHYTHMIA VOLTAGE CRITERIA FOR LVH CANNOT R/O SEPTAL INFARCT, AGE INDETERMINATE ABNORMAL ECG No previous ECG available for comparison Electronically Signed On 10-01-2024 06:18:24 CDT by Sukhjinder Solis D.O.
--- OUTSIDE RECORDS SUMMARY | 2024-09-30 15:28 | XMS_ITS | Clinical Summary ---
Author Organization [facility] Address [address] [place] [address] Care Team Providers Care Animal Husbandry Professor Name Role Phone Kia Love MD Primary Care Provider [phone] Allergies No known active allergies Medications albuterol [...] 2024 01/07/2022, 09/01/2021, 08/28/2020, Additional history exists DTaP, Tdap and Td [...] age to complete this topic Insurance MEDICARE [facility] Advance Directives Documents on File Type Date Recorded Patient Sfdc Developer Expl anation Advance Directives and Living Will 02/28/2022 8:29 AM 08/16/2021 POA FOR HEALTH CARE Care Teams Animal Husbandry Professor Relationship Specialty Start Date End Date Kia Love MD [address] [place] [address] PCP - General INTERNAL MEDICINE 09/03/21
--- OUTSIDE RECORDS SUMMARY | 2024-09-30 15:28 | XMS_ITS | Clinical Summary ---
Author Organization [facility] Address [address] [place] [address] Phone Care Team Providers Care Systems Mgr Name Role Phone Kia Love MD Primary Care Provider [phone] Allergies No known active allergies Medications Medication [...] Comments Blood Pressure 118/70 06/06/2022 2:55 PM VESSEL SLAGMAN Pulse 72 06/06/2022 2:55 PM VESSEL SLAGMAN Temperature 35.3 C (95.6 F) 06/06/2022 2:55 PM VESSEL SLAGMAN Respiratory Rate - - Oxygen Saturation - - Inhaled Oxygen Concentration - - Weight 73.5 kg (162 lb) 06/06/2022 2:55 PM VESSEL SLAGMAN Height 185.4 cm (6' 1 ) 06/06/2022 2:55 PM VESSEL SLAGMAN Body Mass Index 21.37 06/06/2022 2:55 PM VESSEL SLAGMAN Plan of Treatment Health Maintenance Due Date Last Done Comments Pneumococcal PPSV23/PCV13 65 + Years / High and Highest Risk (1 of 4 - PCV) 10/01/1941 Influenza Vaccine (#1) 2024 2, 04/16/2021, 04/01/2020 Care Teams Systems Mgr Relationship Specialty Start Date End Date Kia Love MD PCP - General Internal Medicine 11/12/19
== END 2024-09-30 14:02 | disposition home or self-care (01) ==
LOC: CHSCARD 14:03
PROVIDERS: PCP Internal Medicine; Visit Provider Internal Medicine Cardiovascular Disease
DX: I10 Essential (primary) hypertension (principal); I49.8 Other specified cardiac arrhythmias; R94.31 Abnormal electrocardiogram [ECG] [EKG]
CPT/HCPCS: 93005

== ENCOUNTER 2024-11-22 13:24 | Outpatient (RCR) | payer MEDICARE, OTHER, SELFPAY ==
--- NOTE | 2024-11-27 14:46 | OPREHPOC ---
Outpatient Therapy Plan of Care This is a Multidisciplinary Plan of Care that may contain components documented by all disciplines (PT, OT, and ST.) PT Problem 1 PT Problem #1 Knowledge Deficit PT Goal 1 Goal / Goal Update independent and compliant with HEP Target Visit 5 PT Problem 2 PT Problem #2 Pain PT Goal 1 Goal / Goal Update decrease pain at worst to 3/10 or less in the lower back reduce radiculopathy of the L LE symptoms not passed the buttocks Target Visit 10 PT Problem 3 PT Problem #3 Impaired Strength PT Goal 1 Goal / Goal Update improve bilateral hip strength to 4/5 or better improve bilateral knee strength to 4+/5 or better overall Target Visit 10 PT Problem 4 PT Problem #4 Impaired Functional Mobility PT Goal 1 Goal / Goal Update oswestry to display 30% or less functional deficits patient to tolerate standing for 45 minutes of therapy treatment session patient to return to prior level home and self care activities without assist Target Visit 10
--- NOTE | 2024-11-27 14:46 | PTOPEVAL1 ---
Assessment and note entered by JT File, PT Evaluation Information Assessment Status Evaluation Diagnosis sciatica, L LE, lower back ICD-10 Condition Codes (PT) Pain in low back M54.50,Radiculopathy, lumbar region M54.16 Onset 11/20/23 Subjective Information patient reports he has had a resurgence of lower back and L LE pain. he reports it is his sciatic nerve acting up again. he reports he gets relief from therapy, but occassionally will have a flare up with no specific injury. he reports the pain is in the lower back and runs down the back of the L LE to the knee and occassionally the ankle/foot. Assessment PT Clinical Summary mr. jacobson is a pleasant 89 yo man who presents to skilled PT services with signs and symptoms of lower back and L lateral hip pain. he likely suffers from DDD and lumbar radiculopathy/sciatica . he displays poor core stability, poor posture, weakness in the hips, tenderness in the lateral and posterior L hip, pain, and deficits in functional activity performance. he would benefit from continued skilled PT to address his objective /functional deficits and return to his prior level functional activity performance/quality of life. Plan of Care Interventions Electrical Stimulation,Gait Training,Hot Pack/Cold Pack,Manual Therapy,Neuro Re-education,Patient/ Caregiver Education,Therapeutic Activities, Therapeutic Exercise PT Services Indicated Yes Treatment Frequency and 2x weekly for 10 visits Duration These treatments will address the objective and functional deficits as defined above. The patient will be advanced safely and appropriately in order for the patient to progress towards his/her prior level of function. Additional exercises will be introduced and as well as a comprehensive home exercise program upon discharge, if needed, ?to ensure carryover of functional gains achieved in the clinic. This treatment plan has been reviewed and agreement upon by the patient.
--- NOTE | 2024-12-26 12:06 | OPREHPOC ---
Outpatient Therapy Plan of Care This is a Multidisciplinary Plan of Care that may contain components documented by all disciplines (PT, OT, and ST.) PT Problem 1 PT Problem #1 Knowledge Deficit PT Goal 1 Goal / Goal Update independent and compliant with HEP Target Visit 5 Progress Met PT Problem 2 PT Problem #2 Pain PT Goal 1 Goal / Goal Update decrease pain at worst to 3/10 or less in the lower back reduce radiculopathy of the L LE symptoms not passed the buttocks Target Visit 10 Progress Not Met PT Problem 3 PT Problem #3 Impaired Strength PT Goal 1 Goal / Goal Update improve bilateral hip strength to 4/5 or better - not met improve bilateral knee strength to 4+/5 or better overall -met Target Visit 10 Progress Partially Met PT Problem 4 PT Problem #4 Impaired Functional Mobility PT Goal 1 Goal / Goal Update oswestry to display 30% or less functional deficits -met patient to tolerate standing for 45 minutes of therapy treatment session -not met patient to return to prior level home and self care activities without assist -met but causes pain Target Visit 10 Progress Partially Met
--- NOTE | 2024-12-26 12:06 | PTOPDC ---
Assessment and note entered by Harriet Mondragon, PT Evaluation Information Assessment Status Discharge Diagnosis sciatica, L LE, lower back ICD-10 Condition Codes (PT) Pain in low back M54.50,Radiculopathy, lumbar region M54.16 Onset 11/20/23 Subjective Information Pt reports his back is feeling alright but he continues to have pain. He reports he slept on his L side for a while last night and woke up in quite a bit of pain. He goes back to see Dr. Love tomorrow morning. Reported Pain Level Pain Score 4: Self Report Assessment PT Clinical Summary Mr. Richter has attended 10 skilled PT visits for low back pain and lumbar radiculopathy. Since beginning therapy he has made slight improvements in his hip and knee strength bilaterally but continues to demonstrate gross weakness throughout . He continues to experience radicular symptoms down to the L knee despite continued skilled PT and adherence to HEP. Due to lack of progress it is recommended he continue with his HEP and return to his doctor. Plan of Care PT Services Indicated No
== END 2024-12-26 20:00 | disposition home or self-care (01) ==
LOC: CHSPT 13:24
PROVIDERS: Visit Provider Nurse Practitioner Family
DX: M54.16 Radiculopathy, lumbar region (principal)
CPT/HCPCS: 97014; 97110; 97112; 97140; 97150; 97161; G0283

== ENCOUNTER 2024-11-27 09:32 | Outpatient (CLI) | payer MEDICARE, OTHER, SELFPAY ==
--- NOTE | ~2024-11-27 | CT_ITS ---
Non-contrast CT scan of the Abdomen and Pelvis Clinical indication: Abdominal pain, Crohn's disease Technique: 2.5 mm axial scans were obtained through the abdomen and pelvis without intravenous or or al contrast. Dose reduction technique was used on this scan by utilizing automated exposure control a nd iterative reconstruction technique. The dose-length product (DLP) was 324.24 mGy-cm. COMPARISON: 04/09/2023 Findings: Images through the lung bases reveal mild bibasilar scarring/atelectasis.. Bilateral nonobstructing stones are present, right worse than left. There are multiple left renal cys ts. Simple right renal cyst also present. The liver, spleen, pancreas, gallbladder, and adrenals appear normal. There are atherosclerotic calci fications of the aorta. . There is no evidence of bowel obstruction. Extensive stool could reflect constipation. Evidence of pr ior bowel surgery at the ileocolic region. Images through the pelvis were performed. There is no evidence of ascites or lymphadenopathy. Urinary bladder unremarkable. Status post prostatectomy. Small right inguinal hernia contains fat and small amount of fluid. Impression: No acute abnormality seen, aside from possible constipation. Small right inguinal hernia, as detailed above. Multiple left renal cysts and bilateral nephrolithiasis, similar to prior exam. Reviewed, dictated and finalized at location M. Impression: No acute abnormality seen, aside from possible constipation. Small right inguinal hernia, as detailed above. Multiple left renal cysts and bilateral nephrolithiasis, similar to prior exam.
--- OUTSIDE RECORDS SUMMARY | 2024-11-27 09:36 | XMS_ITS | Clinical Summary ---
Author Organization [facility] Address [address] [place] [id number] Phone Care Team Providers Care Pathology Teacher Name Role Phone Kia Love MD Primary Care Provider [phone] Allergies No known active allergies Medications calcitriol (ROCALTROL) 0.5 MCG capsule Take 0.5 [...] (DITROPAN-XL) 5 MG 24 hr tablet 07/31/2020 Act burton carvedilol (COREG) 25 MG tablet 08/08/2020 Active amLODIPine (NORVASC) 5 MG tablet Take 5 mg by mouth 1 (one) time each day Active budesonide-form oterol (SYMBICORT) 160-4.5 MCG/ACT inhaler 08/16/2021 Active donepezil [...] kidney disease, Stage IV (severe) 2019 Immunizations Immunization Administration Dates Next Due Influenza TIV (IM) 03/17/2022,04/16/2021, 020 Pneumococcal Conjugate 03/03/2018 Social History Tobacco Use Types Packs/Day Years Used Date Smoking Tobacco: Never Smokeless Tobacco: Never Alcohol Use Standard Drinks/Week Comments Not Currently 0 (1 standard drink = 0.6 oz pur e alcohol) Sex and Gender Information Value Date Recorded Sex Assigned at Not on file Legal Sex Male 9:15 AM MDT Gender Identity Not on file Sexual Orientation Not on file Last Filed Vital Signs Vital Sign Reading Time Taken Comments Blood Pressure 118/70 06/06/2022 2:55 PM NURSING HOME SOCIAL WORKER Pulse 72 06/06/2022 2:55 PM NURSING HOME SOCIAL WORKER Temperature 35.3 C (95.6 F) 06/06/2022 2:55 PM NURSING HOME SOCIAL WORKER Respiratory Rate - - Oxygen Saturation - - Inhaled Oxygen Concentration - - Weight 73.5 kg (162 lb) 06/06/2022 2:55 PM NURSING HOME SOCIAL WORKER Height 185.4 cm (6' 1) 06/06/2022 2:55 PM NURSING HOME SOCIAL WORKER Body Mass Index 21.37 06/06/2022 2:55 PM NURSING HOME SOCIAL WORKER Plan of Treatment Health Maintenance Due Date Last Done Comments Pneumococcal PPSV23/PCV13 65 + Years / Low and Medium Risk (1 of 4 - PCV) 10/01/1985 Influenza Vaccine (Season Ended) 2025 03/17/2022, 04/16/2021, 04/01/2020 Insurance MEDICARE [facility] MEDICARE [place] [id number] Care Teams Pathology Teacher Relationship Specialty Start Date End Date Kia Love MD PCP - General Internal Medicine 11/12/19
[2024-11-27 09:47] LABS: Mean Corpuscular HGB Conc 32.3 g/dL (32-36); Mean Corpuscular Hemoglobin 31.3 pg (27.0-31.0); Mean Corpuscular Volume 96.9 fL (78.0-102.0); Mean Platelet Volume 8.6 fl (8.7-11.0); Platelet Count Result 159 K/mm3 (150-420); Red Cell Distribution Width 14.1 % (11.6-14.4); White Blood Count 4.8 K/mm3 (4.8-10.8)
[2024-11-27 10:17] LABS: Alanine Aminotransferase 19 U/L (6-50); Albumin Level 3.8 g/dL (3.5-5.1); Alkaline Phosphatase 40 U/L (38-126); Anion Gap 5 mmol/L (4-12); Aspartate Amino Transferase 25 U/L (17-59); Bilirubin,Total 0.4 mg/dL (0.2-1.3); Blood Urea Nitrogen 34 mg/dL (9-20); CRP < 0.5 mg/dL (<1.0); Calcium 8.9 mg/dL (8.4-10.2); Carbon Dioxide 25 mmol/L (22-30); Chloride 108 mmol/L (98-107); Estimated Glomerular Filt Rate 18; Glucose 94 mg/dL (65-110); Osmolality Calculated 293 mOsm/kg (285-295); Potassium 4.1 mmol/L (3.4-5.0); Sodium 138 mmol/L (137-145); Total Protein 5.8 g/dL (6.3-8.2)
[2024-11-27 11:56] LABS: Erythrocyte Sedimentation Rate 16 mm/hr (0-30)
== END 2024-11-27 09:33 | disposition home or self-care (01) ==
PROVIDERS: PCP Internal Medicine; Visit Provider Internal Medicine
DX: R10.9 Unspecified abdominal pain (principal); K50.90 Crohn's disease, unspecified, without complications; K40.90 Unilateral inguinal hernia, without obstruction or gangrene, not specified as recurrent; N20.0 Calculus of kidney; N28.1 Cyst of kidney, acquired
CPT/HCPCS: 36415; 74176; 80053; 85027; 85652; 86140

== ENCOUNTER 2024-12-23 12:12 | Outpatient (CLI) | payer MEDICARE, OTHER, SELFPAY ==
--- NOTE | ~2024-12-23 | XR_ITS ---
XR abdomen obstructive series Ordering provider: Melida Fernandez, CORPORATION SECRETARY History: . abdominal pain, constipation . Comparison: None. FINDINGS: BOWEL: Nonobstructive bowel gas pattern. ORGANOMEGALY: None. SIGNIFICANT PATHOLOGIC CALCIFICATIONS: Stones seen in the right and left kidneys. OTHER: No free air is seen under the diaphragm. Bilateral hip osteoarthritic changes. Pubic symphysit is. Bilateral sacroiliitis. Degenerative spine. Postoperative changes in the pelvis. IMPRESSION: NO ACUTE ABDOMINAL FINDINGS. Possible bilateral kidney stones. Reviewed, dictated and finalized at location A.
== END 2024-12-23 12:13 | disposition home or self-care (01) ==
LOC: CHSIMG 12:14
PROVIDERS: PCP Internal Medicine; Visit Provider Nurse Practitioner Family
DX: R10.9 Unspecified abdominal pain (principal); K59.00 Constipation, unspecified
CPT/HCPCS: 74019

== ENCOUNTER 2024-12-27 09:54 | Outpatient (CLI) | payer MEDICARE, OTHER, SELFPAY ==
--- NOTE | ~2024-12-27 | XR_ITS ---
XR shoulder LT min 2V Ordering provider: Kia Love MD History: . left shoulder pain . Comparison: None. FINDINGS: BONES: No acute fracture or dislocation. JOINT SPACES: The acromioclavicular joint is normal. The glenohumeral joint is normal. SOFT TISSUES: Normal. IMPRESSION: No acute osseous abnormality left shoulder. Reviewed, dictated and finalized at location A.
== END 2024-12-27 09:55 | disposition home or self-care (01) ==
PROVIDERS: PCP Internal Medicine; Visit Provider Internal Medicine
DX: M25.512 Pain in left shoulder (principal)
CPT/HCPCS: 73030

== ENCOUNTER 2024-12-31 16:55 | Outpatient (RCR) | payer MEDICARE, OTHER, SELFPAY ==
--- NOTE | 2024-12-31 17:54 | PTOPEVAL1 ---
Assessment and note entered by Mercedes Boswell DPT Evaluation Information Assessment Status Evaluation Diagnosis L shoulder pain ICD-10 Condition Codes (PT) Pain in left shoulder M25.512 Onset 12/27/24 Subjective Information Patient reports he has had L shoulder pain for the last month or 6 weeks. He reports he has a bad right knee so to balance things out her carries things with his L arm and he thinks that's what started pain. He reports pain is worse with bearing weight through the L arm, lifting any objects and reaching out away from his body. He reports he has not tried ice. x-rays were negative . he denies any fall onto arm. He uses the cane in the R arm. Reported Pain Level Pain Score 1: Self Report Assessment PT Clinical Summary Mr. Richter is an 89 year old male who presents to PT with L shoulder pain. He demonstrates decreased L shoulder active ROM, decreased L shoulder strength and tenderness at the L bicep limiting his ability to push up out of a chair, carry groceries and reach out away from his body. He would benefit from skilled PT to address impairments and return to PLOF. Plan of Care Interventions Electrical Stimulation,Hot Pack/Cold Pack,Manual Therapy,Neuro Re-education,Patient/Caregiver Education,Therapeutic Activities,Therapeutic Exercise PT Services Indicated Yes Treatment Frequency and 2x weekly for 10 visits Duration These treatments will address the objective and functional deficits as defined above. The patient will be advanced safely and appropriately in order for the patient to progress towards his/her prior level of function. Additional exercises will be introduced and as well as a comprehensive home exercise program upon discharge, if needed, ?to ensure carryover of functional gains achieved in the clinic. This treatment plan has been reviewed and agreement upon by the patient.
--- NOTE | 2025-02-11 11:10 | PTOPDC ---
Assessment and note entered by Mercedes Boswell DPT Evaluation Information Assessment Status Discharge Diagnosis L shoulder pain ICD-10 Condition Codes (PT) Pain in left shoulder M25.512 Onset 12/27/24 Subjective Information Patient reports his shoulder has improved since start of PT. HE reports he is able to push up out of the chair with no pain and reach into cabinets without pain. He reports that he does get some soreness when sitting in his chair for long periods of time. Reported Pain Level Pain Score 3: Self Report Assessment PT Clinical Summary Mr. Richter was seen for 10 visits of skilled PT with great progress towards goals. He demonstrates increased ROM, improved strength and decreased pain with improved ability to push up out of his chair and reach overhead. He is independent with HEP and is appropriate for DC at this time. Plan of Care PT Services Indicated No
== END 2025-02-11 16:53 | disposition home or self-care (01) ==
LOC: CHSPT 16:55
PROVIDERS: PCP Internal Medicine; Visit Provider Internal Medicine
DX: M25.512 Pain in left shoulder (principal)
CPT/HCPCS: 97014; 97110; 97150; 97161; G0283

== ENCOUNTER 2025-02-25 13:37 | Outpatient (RCR) | payer MEDICARE, OTHER, SELFPAY ==
--- NOTE | 2025-02-25 15:22 | PTOPEVAL1 ---
Assessment and note entered by Mercedes Boswell DPT Evaluation Information Assessment Status Evaluation Diagnosis low back pain Onset 02/19/25 Subjective Information Patient reports he got an injection about 3 weeks ago and then fell out in the landscape and now pain is worse again. He reports that pain radiates down the L LE into the sciatica. He reports that pain gets worse when he lays down to sleep and sitting in a chair for prolonged periods. He reports that he takes a muscle relaxer and that does seem to help pain. He reports that he returns to pain management MD tomorrow. He walks with a STC at all times. Reported Pain Level Pain Score 7: Self Report Assessment PT Clinical Summary Mr. Richter is an 89 year old male who presents to PT with low back pain that radiates to the L LE. He demonstrates impaired posture, decreased B LE strength and decreased B LE flexibility impairing his ability to sleep, sit for long periods of time and complete house hold tasks. He would benefit from skilled PT to address impairments and return to PLOF. Plan of Care Interventions Electrical Stimulation,Gait Training,Hot Pack/Cold Pack,Manual Therapy,Neuro Re-education, Therapeutic Activities,Therapeutic Exercise PT Services Indicated Yes Treatment Frequency and 2x weekly for 10 visits Duration These treatments will address the objective and functional deficits as defined above. The patient will be advanced safely and appropriately in order for the patient to progress towards his/her prior level of function. Additional exercises will be introduced and as well as a comprehensive home exercise program upon discharge, if needed, ?to ensure carryover of functional gains achieved in the clinic. This treatment plan has been reviewed and agreement upon by the patient.
--- NOTE | 2025-04-08 14:44 | PTOPDC ---
Assessment and note entered by Mercedes Boswell DPT Evaluation Information Assessment Status Discharge Diagnosis low back pain Onset 02/19/25 Subjective Information Patient reports that he has not felt much improvement since starting PT. He reports he does feeling looser after performing exercises. He reports he continues to have pain with sleeping and with standing/walking. He reports he follows up with pain management at the end of April. Reported Pain Level Pain Score 7: Self Report Assessment PT Clinical Summary Mr. Richter has attended 10 visits of skilled PT with limited progress towards goals. He continues to have pain down the L LE impairing his ability to sleep, stand for house hold tasks and ambulate. He is independent with HEP and will be discharged at this time due to limited progress. Plan of Care PT Services Indicated No
== END 2025-04-08 15:40 | disposition home or self-care (01) ==
LOC: CHSPT 13:37
PROVIDERS: Visit Provider Nurse Practitioner Family
DX: M54.16 Radiculopathy, lumbar region (principal)
CPT/HCPCS: 97014; 97110; 97140; 97161; 97530; G0283

== ENCOUNTER 2025-03-12 11:35 | Outpatient (CLI) | payer MEDICARE, OTHER, SELFPAY ==
[2025-03-12 11:49] VITALS: BP 159/80; PULSE 80; RESP 16; TEMP 36.9; O2SAT 98; BMI 22.8
[2025-03-12] MEDS: DENOSUMAB 60 MG/ML SYRINGE SUB-Q (11:52)
== END 2025-03-12 11:36 | disposition home or self-care (01) ==
PROVIDERS: PCP Internal Medicine; Visit Provider Internal Medicine
DX: M81.0 Age-related osteoporosis without current pathological fracture (principal)
CPT/HCPCS: 96372; J0897

== ENCOUNTER 2025-03-27 14:33 | Outpatient (CLI) | payer MEDICARE, OTHER, SELFPAY ==
--- NOTE | ~2025-03-27 | XR_ITS ---
EXAMINATION: XR chest 2V, 03/27/2025 14:45 CDT HISTORY: CONGESTION/FEVER/COUGH COMPARISON: No comparisons available. Technique: 2 views obtained. Findings: The lungs are clear, no effusion. No pneumothorax. Heart is normal size. Mediastinal and hilar contours are within normal limits. Bony thorax no acute abnormality. Impression: No acute cardiopulmonary abnormality. Reviewed, dictated and finalized at location P. Impression: No acute cardiopulmonary abnormality.
[2025-03-27 14:47] LABS: Hematocrit 28.7 % (37.0-46.0); Hemoglobin 9.3 g/dL (12.4-15.3); Mean Corpuscular HGB Conc 32.4 g/dL (32-36); Mean Corpuscular Hemoglobin 31.2 pg (27.0-31.0); Mean Corpuscular Volume 96.3 fL (78.0-102.0); Platelet Count Result 203 K/mm3 (150-420); Red Blood Count 2.98 M/mm3 (4.70-6.10); White Blood Count 7.1 K/mm3 (4.8-10.8)
[2025-03-27 15:00] LABS: Anion Gap 14 mmol/L (4-12); Blood Urea Nitrogen 59 mg/dL (9-20); Calcium 9.0 mg/dL (8.4-10.2); Carbon Dioxide 18 mmol/L (22-30); Chloride 106 mmol/L (98-107); Estimated Glomerular Filt Rate 15; Glucose 94 mg/dL (65-110); Osmolality Calculated 302 mOsm/kg (285-295); Potassium 4.5 mmol/L (3.4-5.0); Sodium 138 mmol/L (137-145)
--- OUTSIDE RECORDS SUMMARY | 2025-03-27 17:12 | XMS_ITS | Clinical Summary ---
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
--- OUTSIDE RECORDS SUMMARY | 2025-03-27 17:12 | XMS_ITS | Clinical Summary ---
Author Organization [facility] Address [address] [place] [address] Care Team Providers Care Journeyman Apprentice Electricians Name Role Phone Kia Love MD Primary Care Provider [phone] Allergies No known active allergies Medications albuterol [...] Years (1 - 1-dose 75+ series) 10/01/2010 DTaP, Tdap and Td Vaccines (2 - Td or Tdap) 12/19/2024 12/19/2014, 02/21/2008 COVID-19 Vaccine ( - season) 2025 01/07/2022, 09/01/2021, 08/28/2020, Additional history exists Pneumococcal Vaccine: 50+ Years Completed 03/03/2018, 12/19/2014, 03/16/2010 Meningococcal B Vaccine Aged Out No l onger eligible based on patient's age to complete this topic Meningococcal Vaccine Aged Out No walter brittany eligible based on patient's age to complete this topic RSV Immunizations Under 20 Months Aged Out No longer eligible based on patient's age to complete this topic Insurance MEDICARE [facility] Advance Directives Documents on File Type Date Recorded Patient Family Support Worker Expl anation Advance Directives and Living Will 02/28/2022 8:29 AM 08/16/2021 POA FOR HEALTH CARE Care Teams Journeyman Apprentice Electricians Relationship Specialty Start Date End Date Kia Love MD [address] [place] [address] PCP - General INTERNAL MEDICINE 09/03/21
== END 2025-03-27 14:34 | disposition home or self-care (01) ==
PROVIDERS: PCP Internal Medicine; Visit Provider Internal Medicine
DX: R06.89 Other abnormalities of breathing (principal); R50.9 Fever, unspecified; R05.9 Cough, unspecified
CPT/HCPCS: 36415; 71046; 80048; 85027